=== PATIENT | male | born 1945 | race Caucasian/White ===

== ENCOUNTER → 2025-09-02 | Outpatient (CLI) | payer MEDICARE, BC, SELFPAY ==
[2025-09-02 14:47] LABS: Basophils # (Auto) 0.0 Thou/mm3 (0.0-0.2); Basophils % (Auto) 0 % (0-2.5); Eosinophils # (Auto) 0.2 Thou/mm3 (0.0-0.5); Eosinophils % (Auto) 3 % (0-10); Hematocrit 45.2 % (41.0-53.0); Hemoglobin 14.8 g/dL (13.5-16.0); Immature Granulocytes Auto 0.02 Thou/mm3 (0.00-0.00); Lymphocytes # (Auto) 1.3 Thou/mm3 (1.0-4.8); Lymphocytes % (Auto) 18 % (10-50); Mean Corpuscular HGB Conc 32.7 g/dl (31.0-37.0); Mean Corpuscular Hemoglobin 34.7 pg (25.0-35.0); Mean Corpuscular Volume 106 fL (80-100); Monocytes # (Auto) 0.5 Thou/mm3 (0.0-0.8); Monocytes % (Auto) 6 % (0-12); Neutrophils # (Auto) 5.2 Thou/mm3 (1.8-7.7); Neutrophils % (Auto) 72 % (37-80); Nucleated Red Blood Cell # 0.00 Thou/mm3 (0.00-0.00); Nucleated Red Blood Cell % 0 /100 WBC (0); Platelet Count 161 Thou/mm3 (140-440); RDW Standard Deviation 54.4 fL (35.1-43.9); Red Blood Count 4.26 Miln/mm3 (4.50-5.90); White Blood Count 7.2 Thou/mm3 (3.8-10.6)
[2025-09-02 14:59] LABS: B-Type Natriuretic Peptide 45 pg/mL (0-100)
[2025-09-02 15:02] LABS: Alanine Aminotransferase 12 U/L (10-49); Albumin, Serum 4.6 gm/dL (3.4-4.8); Albumin/Globulin Ratio 1.8 (1.2-2.2); Alkaline Phosphatase 94 U/L (46-116); Anion Gap 11 (7-16); Aspartate Amino Transferase 13 U/L (0-34); BUN/Creatinine Ratio 17 Ratio (12-20); Bilirubin,Total 1.2 mg/dL (0.3-1.2); Blood Urea Nitrogen 42 mg/dL (9-23); Calcium 9.3 mg/dL (8.3-10.6); Calcium (Corrected) 9.3 mg/dL (8.5-10.1); Carbon Dioxide 25.1 mMol/L (20.0-31.0); Cardiac Risk Estimate 2.3 RATIO (4.0-6.7); Chloride 106 mMol/L (98-107); Cholesterol 112 mg/dL (132-200); Creatinine (Component) 2.5 mg/dL (0.6-1.3); Globulin 2.6 gm/dL (2.3-3.5); Glucose 102 mg/dL (74-106); HDL Cholesterol 49 mg/dL (40-60); LDL Cholesterol,Calculated 34 mg/dL (0-130); Osmolality,Calculated 293 (275-295); Potassium 5.2 mMol/L (3.4-5.1); Sodium 142 mMol/L (136-145); Thyroid Stimulating Hormone 1.94 uIU/mL (0.55-4.78); Total Protein 7.2 gm/dL (5.7-8.2); Triglycerides 146 mg/dL (30-150); eGFR 25 See Note
== END | disposition home or self-care (01) ==
LOC: COPL 13:35
PROVIDERS: PCP Internal Medicine
DX: E78.5 Hyperlipidemia, unspecified (principal); I50.9 Heart failure, unspecified; Z79.899 Other long term (current) drug therapy
CPT/HCPCS: 36415; 80053; 80061; 83880; 84443; 85025

== ENCOUNTER → 2025-10-16 | Outpatient (CLI) | payer MEDICARE, BC, SELFPAY ==
--- NOTE | 2025-10-16 15:02 | XR_ITS ---
Examination: Retroperitoneal ultrasound, complete Technique: Multiple high resolution grayscale images of the retroperitoneum obtained, including kidneys and bladder. Exam date and time: October 16, 2025, 1513 hours INDICATIONS: Acute renal failure on laboratory examination September 02, 2025. FINDINGS: Right kidney 10.0 cm renal cortex 2.6 cm Left kidney 10.0 cm renal cortex 2.6 cm Moderate renal scar formation 6 mm lower pole left renal calculus, no hydronephrosis No bladder mass, bladder prevoid volume 193 cc Prostate 4.0 x 4.1 x 4.4 cm volume 37 cc no prostate nodules IMPRESSION: Moderate renal scar formation 6 mm lower pole left renal calculus
[2025-10-16 16:45] LABS: Albumin, Serum 5.1 gm/dL (3.4-4.8); Anion Gap 11 (7-16); BUN/Creatinine Ratio 23 Ratio (12-20); Blood Urea Nitrogen 59 mg/dL (9-23); Calcium 9.3 mg/dL (8.3-10.6); Calcium (Corrected) 9.3 mg/dL (8.5-10.1); Carbon Dioxide 27.1 mMol/L (20.0-31.0); Chloride 104 mMol/L (98-107); Creatinine (Component) 2.6 mg/dL (0.6-1.3); Glucose 90 mg/dL (74-106); Osmolality,Calculated 299 (275-295); Phosphorous 5.3 mg/dL (2.4-5.1); Potassium 4.9 mMol/L (3.4-5.1); Sodium 142 mMol/L (136-145); eGFR 24 See Note
== END | disposition home or self-care (01) ==
LOC: CDIM 14:27
PROVIDERS: PCP Internal Medicine; Referring Provider Internal Medicine; Visit Provider Internal Medicine
DX: N20.0 Calculus of kidney (principal); N28.89 Other specified disorders of kidney and ureter; N17.9 Acute kidney failure, unspecified; I10 Essential (primary) hypertension
CPT/HCPCS: 36415; 76770; 80069; 81001

== ENCOUNTER 2025-10-22 08:48 | Emergency (ER) | payer MEDICARE, BC, SELFPAY ==
[2025-10-22] VITALS (7 sets, daily range): BP systolic 107–148; BP diastolic 60–86; PULSE 67–99; RESP 16–20; TEMP 36.4; O2SAT 95–100; BMI 28.2
--- NOTE | 2025-10-22 09:29 | PD.EDRME ---
Rapid Medical Screening Exam RME Arrival date/time: 10/22/25 08:48 80-year-old male with a history of hyperlipidemia, type 2 diabetes presents to the emergency room with a chief complaint of bright red blood in the stool x 1 day I have greeted and performed a focused initial assessment of this patient. A comprehensive ED assessment and evaluation of the patient, analysis of all test results, and completion of the medical decision making process will be conducted by additional ED providers. Chief Complaint: GI Bleed Time Seen by Provider: 10/22/25 08:59 Vital signs: Vital Signs Temperature 97.6 F 10/22/25 09:25 Pulse Rate 99 10/22/25 09:25 Respiratory Rate 20 10/22/25 09:25 Blood Pressure 122/76 10/22/25 09:25 Pulse Oximetry (%) 95 10/22/25 09:25 Oxygen Delivery Method Room Air 10/22/25 09:25 Vital signs reviewed by provider: Yes Exam: Bilateral lower abdomen tenderness with palpation Clear bilateral lung sounds. GCS of 15 Clinical Impression: Lower GI bleed/hemorrhoids/
[2025-10-22 10:06] LABS: INR 1.0 (0.9-1.3); Partial Thromboplastin Time 26.2 Seconds (22.0-36.0); Prothrombin Time 10.9 Seconds (9.0-12.2)
[2025-10-22 11:20] LABS: Basophils # (Auto) 0.0 Thou/mm3 (0.0-0.2); Basophils % (Auto) 0 % (0-2.5); Eosinophils # (Auto) 0.1 Thou/mm3 (0.0-0.5); Eosinophils % (Auto) 1 % (0-10); Hematocrit 43.7 % (41.0-53.0); Hemoglobin 14.3 g/dL (13.5-16.0); Immature Granulocytes Auto 0.03 Thou/mm3 (0.00-0.00); Lymphocytes # (Auto) 1.0 Thou/mm3 (1.0-4.8); Lymphocytes % (Auto) 13 % (10-50); Mean Corpuscular HGB Conc 32.7 g/dl (31.0-37.0); Mean Corpuscular Hemoglobin 34.7 pg (25.0-35.0); Mean Corpuscular Volume 106 fL (80-100); Monocytes # (Auto) 0.4 Thou/mm3 (0.0-0.8); Monocytes % (Auto) 5 % (0-12); Neutrophils # (Auto) 6.3 Thou/mm3 (1.8-7.7); Neutrophils % (Auto) 81 % (37-80); Nucleated Red Blood Cell # 0.00 Thou/mm3 (0.00-0.00); Nucleated Red Blood Cell % 0 /100 WBC (0); Platelet Count 152 Thou/mm3 (140-440); RDW Standard Deviation 51.7 fL (35.1-43.9); Red Blood Count 4.12 Miln/mm3 (4.50-5.90); White Blood Count 7.7 Thou/mm3 (3.8-10.6)
[2025-10-22 12:00] LABS: Alanine Aminotransferase 23 U/L (10-49); Albumin, Serum 4.6 gm/dL (3.4-4.8); Albumin/Globulin Ratio 2.2 (1.2-2.2); Anion Gap 10 (7-16); Aspartate Amino Transferase 19 U/L (0-34); BUN/Creatinine Ratio 26 Ratio (12-20); Bilirubin,Total 0.7 mg/dL (0.3-1.2); Blood Urea Nitrogen 64 mg/dL (9-23); Calcium 9.5 mg/dL (8.3-10.6); Calcium (Corrected) 9.5 mg/dL (8.5-10.1); Carbon Dioxide 25.8 mMol/L (20.0-31.0); Chloride 104 mMol/L (98-107); Creatinine (Component) 2.5 mg/dL (0.6-1.3); Estimated Creatinine Clearance 28.8 mL/min (>60); Globulin 2.1 gm/dL (2.3-3.5); Glucose 126 mg/dL (74-106); Osmolality,Calculated 299 (275-295); Potassium 5.9 mMol/L (3.4-5.1); Sodium 140 mMol/L (136-145); Total Protein 6.7 gm/dL (5.7-8.2); eGFR 25 See Note
[2025-10-22 12:35] LABS: Alkaline Phosphatase 82 U/L (46-116)
--- NOTE | 2025-10-22 13:36 | PD.EDGIBLD ---
ED GI Bleed RME/HPI General Chief complaint: GI Bleed Stated complaint: RECTAL BLEEDING Time Seen by Provider: 10/22/25 08:59 Arrival date/time: 10/22/25 08:48 Limitations: no limitations RME / HPI RME / HPI Narrative: 10/22/25 08:48 80-year-old male with a history of hyperlipidemia, type 2 diabetes presents to the emergency room with a chief complaint of bright red blood in the stool x 1 day I have greeted and performed a focused initial assessment of this patient. A comprehensive ED assessment and evaluation of the patient, analysis of all test results, and completion of the medical decision making process will be conducted by additional ED providers. DR. LEVIN MAIN ED EVALUATION 80 year old male with history of hypertension diabetes, hyperlipidemia, BPH, bilateral lung cancer s/p bilateral lobectomy, presents to the ED with concerns of two episodes of bright red blood in stool today. No other associated symptoms reported. Denies abdominal pain, diarrhea, constipation. Denies any fevers, chest pain, or shortness of breath. No trauma. Denies use of blood thinners. Patient states he has had colonoscopies in the past showing precancerous polyps though did not become cancerous. States he has not had a colonoscopy performed in a while. Exam: Bilateral lower abdomen tenderness with palpation Clear bilateral lung sounds. GCS of 15 Impression: Lower GI bleed/hemorrhoids/ Related Data Home Medications ?Medication ?Instructions ?Recorded ?Confirmed atorvastatin 40 mg tablet (Lipitor) 40 mg PO HS #0 tabs 02/18/16 01/05/23 metformin 500 mg tablet 1,000 mg PO BID ##360 06/15/16 01/05/23 glipizide 2.5 mg tablet, extended 5 mg PO QDAY 01/05/23 01/05/23 release 24 hr triamterene 37.5 1 tab PO QDAY 01/05/23 01/05/23 mg-hydrochlorothiazide 25 mg tablet Previous Rx's ?Medication ?Instructions ?Recorded irbesartan 300 mg tablet 300 mg PO QDAY #30 tabs 01/15/23 metoprolol succinate 25 mg 25 mg PO QDAY #30 tabs 01/15/23 tablet,extended release 24 hr spironolactone 25 mg tablet 25 mg PO DAILY 30 days #30 tabs 01/15/23 acetaminophen 325 mg tablet 650 mg (2 x 325 mg) PO Q6H PRN 01/16/23 Fever >101.5 #1 tab budesonide-formoterol HFA 80 2 inh inhalation BID #10.2 grams 01/16/23 mcg-4.5 mcg/actuation aerosol inhaler (Symbicort) ipratropium 0.5 mg-albuterol 3 mg 3 ml INH Q6HRRT #1 mL 01/16/23 (2.5 mg base)/3 mL nebulization soln polyethylene glycol 3350 17 gram 17 g PO QDAY #1 ea 01/16/23 oral powder packet (HealthyLax) sodium zirconium cyclosilicate 10 10 g PO QDAY #5 ea 10/22/25 gram oral powder packet (Lokelma) Allergies Allergy/AdvReac Type Severity Reaction Status Date / Time lettuce AdvReac Intermediate Diarrhea Verified 10/22/25 22:49 Review of Systems Review of Systems Systems Reviewed: All systems reviewed, normal except as documented Past Medical History Past Medical History CARDIAC: Positive Hypercholesterolemia, Congestive Heart Failure, Edema and Hypertension GENITOURINARY: Positive Genitourinary Disorders and Kidney Stones MUSCULOSKELETAL: Positive Musculoskeletal Disorders and Degenerative Disk Disease ENT: Positive Cataracts ENDOCRINE: Positive Endocrine Disorders and Diabetes Mellitus Type 2 OTHER HISTORY: Positive Hospitalization, Falls, Chicken Pox, Measles, Mumps, Rubella ([place] Measles) and Cancer Family History FAMILY HISTORY: Positive Family Cardiac Disorders, Family Cancer and Family Surgery Surgical History SURGICAL: Positive of Back Surgery Social History SMOKING STATUS: Former smoker ED Exam General Limitations: Present no limitations General appearance: Present alert and in no apparent distress Head Head exam: Present atraumatic Eye Eye exam: Present normal appearance, PERRL and EOMI ENT ENT exam: Present normal exam, normal oropharynx and mucous membranes moist Neck Neck exam: Present normal inspection, full ROM and trachea midline Chest Chest inspection: Present normal inspection and symmetric chest wall rise Respiratory Respiratory exam: Present normal lung sounds bilaterally Cardiovascular Cardiovascular exam: Present regular rate, normal rhythm and normal heart sounds Abdominal Exam Abdominal exam: Present soft and normal bowel sounds Extremities Exam Extremities exam: Present normal inspection and full ROM Back Exam Back exam: Present normal inspection and full ROM Neurological Exam Neurological exam: Present alert, oriented X3 and CN II-XII intact Psychiatric Psychiatric exam: Present normal affect and normal mood Skin Skin exam: Present warm, dry, intact and normal color Course Quality Measures none Orders Category Date Time Status CBC Stat Lab 10/22/25 09:40 Completed CMP [Comprehensive Metabolic Panel] Stat Lab 10/22/25 09:40 Completed PT [Prothrombin Time with INR] Stat Lab 10/22/25 09:40 Completed PTT [Partial Thromboplastin Time] Stat Lab 10/22/25 09:40 Completed Type and Screen Stat Lab 10/22/25 11:00 Completed ALBUTEROL RT 0.5ml [Proventil Rt 0.5ml] Med 10/22/25 13:39 Discontinued 2.5 mg INH X1 ONE Calcium Gluconate 10% Inj Med 10/22/25 13:39 Discontinued 1 gm IV X1 ONE Dextrose 10%-Water 1000 ml [D10w 1000 ml] 1,000 ml Med 10/22/25 13:45 Discontinued IV 100 mls/hr Dextrose 50% Syr [D50w Syringe Abboject] Med 10/22/25 13:39 Discontinued 50 ml IVP X1 ONE Furosemide [Lasix Inj] Med 10/22/25 13:41 Discontinued 20 mg IVP X1 ONE Insulin Regular Med 10/22/25 13:39 Discontinued 5 unit IV X1 ONE Sodium Chloride Rt Lucia 0.9% [NS Rt Lucia 0.9%] Med 10/22/25 13:39 Discontinued 3 ml INH PRN PRN Vital Signs Vital signs: Vital Signs Temperature 97.6 F 10/22/25 09:25 Pulse Rate 99 10/22/25 09:25 Respiratory Rate 20 10/22/25 09:25 Blood Pressure 122/76 10/22/25 09:25 Pulse Oximetry (%) 95 10/22/25 09:25 Oxygen Delivery Method Room Air 10/22/25 09:25 Pulse ox is 95% on room air which is adequate. GI Bleed MDM Narrative MDM Narrative:: Patient is an 78-year-old male into the [facility] from with concerns for bright red blood per rectum. Vital signs and exam as listed. Concern for hemorrhoid, fissure, patient without any abdominal pain, he is hemodynamically stable, no shortness of breath less likely brisk hemodynamically unstable bleed. Ordered labs. Labs with evidence of hemoglobin 14.3, no leukocytosis, no left shift patient potassium is 5.9 we will treat in the emergency department. Patient with persistent chronic kidney disease, patient's creatinine is at his baseline, 2.5. GFR at this baseline that has been the last couple months 25. No transaminitis, patient blood type is a positive. Offered admission however patient declines. Discussed with [employer] neurology hospitalist Dr. Horta, agrees with treatment thus far. recommends that we prescribe lokelma. lower GI bleed is not a contraindication for lokelma. Advsied on low potass[place]m diet and follow up with his neurology hospitalist in the next 1-2 days. Given patient does not want to be admitted, recommends dc with lokelma. I advised follow up with gastroenterology for repeat colonoscopy given hx of GI bleed, and neprhology this week. close return precautiosn provided Patient data External records reviewed:: [facility] previous records Clinical information provided by:: patient Social determinants that could affect healthcare access:: none Patient has the following chronic illnesses:: hypertension diabetes, hyperlipidemia, BPH, bilateral lung cancer s/p bilateral lobectomy colonoscopies in the past showing precancerous polyps though did not become cancerous. How is presenting disease/condition affected by chronic disease/condition?: exacerbated by Evaluation data The following diagnostics were reviewed and interpreted by me:: lab results Lab and/or radiology exams considered but not ordered:: None Interpretation Summary: See MDM Medications / Prescriptions Medications or Prescriptions considered but not ordered:: None Medication administrations:: Medication Administration History Discontinued Medications Albuterol (Albuterol Rt 2.5 Mg/0.5 Ml Nebu) 2.5 mg INH X1 ONE Stop: 10/22/25 13:40 Last Admin: 10/22/25 14:00 Dose: 2.5 mg Documented By: JIM Calcium Gluconate (Calcium Gluconate 10% Inj 1 Gm/10 Ml Vial) 1 gm IV X1 ONE Stop: 10/22/25 13:40 Last Admin: 10/22/25 14:06 Dose: 1 gm Documented By: EFREN Dextrose (Dextrose 50%-Water Inj 50 Ml Syringe) 50 ml IVP X1 ONE Stop: 10/22/25 13:40 Last Admin: 10/22/25 14:07 Dose: 50 ml Documented By: EFREN Furosemide (Furosemide Inj 10 Mg/Ml Vial 2 Ml) 20 mg IVP X1 ONE Stop: 10/22/25 13:42 Last Admin: 10/22/25 14:07 Dose: 20 mg Documented By: EFREN Dextrose (D10w 1000 Ml) 1,000 mls @ 100 mls/hr IV .Q10H NANCY Stop: 10/22/25 23:44 Last Admin: 10/22/25 14:15 Dose: Not Given Documented By: EFREN Non-Admin Reason: Cancelled by Provider Insulin Human Regular (Insulin Hum Regular 1 Unit/0.01 Ml (Per Unit)) 5 unit IV X1 ONE Stop: 10/22/25 13:40 Last Admin: 10/22/25 14:05 Dose: 5 unit Documented By: EFREN Co-signed By: MARCY Sodium Chloride (Sodium Chloride Rt Lucia 0.9% 3 Ml Nebu) 3 ml INH PRN PRN PRN Reason: SOLN Stop: 11/21/25 13:38 Last Admin: 10/22/25 14:00 Dose: 3 ml Documented By: JIM See above Consultations Consultation(s) initiated? (list below): No Diagnosis GI bleed differential diagnosis: hemorrhoids, infectious diarrhea, Lower gastrointestinal hemorrhage, hematochezia and anal fissure Most likely diagnosis given after review of the tests above:: Acute hyperkalemia Bright red blood per rectum Admission Indicated Admission indicated?: not indicated Admission Request Was there a request for admission?: No Disposition Plan Disposition Plan: Discharge Discharge Attestation Discharge Attestation: The patient and all family members were given an opportunity to ask questions and understood the discharge instructions. Discharge instructions specifically effects, indications for sooner follow up or return to the emergency department, and the expected course of current diagnosis. Patient condition: Stable Discharge Plan Plan Patient Disposition: HOME (Self Care) Prescriptions/Referrals Prescriptions/Med Rec: Walter Lopuma 10 gram powder in packet 10 g PO QDAY Qty: 5 0RF No Action atorvastatin [Lipitor] 40 MG tablet 40 mg PO HS Qty: 0 metformin 500 mg Tablet 1,000 mg PO BID Qty: 360 glipizide 2.5 mg Tablet Extended Release 24hr 5 mg PO QDAY triamterene-hydrochlorothiazid 37.5-25 mg Tablet 1 tab PO QDAY spironolactone 25 mg Tablet 25 mg PO DAILY 30 Days Qty: 30 1RF metoprolol succinate 25 mg Tablet Extended Release 24 Hr 25 mg PO QDAY Qty: 30 0RF irbesartan 300 mg Tablet 300 mg PO QDAY Qty: 30 0RF acetaminophen 325 mg Tablet 650 mg PO Q6H PRN (Reason: Fever >101.5) Qty: 1 0RF ipratropium-albuterol 0.5 mg-3 mg(2.5 mg base)/3 mL Solution For Nebulization 3 ml INH Q6HRRT Qty: 1 0RF polyethylene glycol 3350 [HealthyLax] 17 gram Powder In Packet 17 g PO QDAY Qty: 1 0RF budesonide-formoterol [Symbicort] 80-4.5 mcg/actuation HFA aerosol inhaler 2 inh inhalation BID Qty: 10.2 0RF Referrals: Jennifer Silverio MD [Primary Care Provider] - In 1 week Problem List Clinical Impression: Acute hyperkalemia, BRBPR (bright red blood per rectum) Patient/Caregiver Discharge Instructions Education Materials: Bleeding Gastrointestinal, ED Hyperkalemia Additional Instructions: You came in today because you had a painless lower GI bleed. Your vital signs have remained stable, within normal limits, your hemoglobin was 14 which is also normal and you do not have abdominal pain, all of these findings are reassuring. It is important that you follow-up with your primary care doctor and request evaluation by prison teacher for a colonoscopy. It important that they further assess the possible etiologies of your bleed. If the bleeding gets worse, you feel lightheaded important that you come back to the emergency department or call 911. Your labs today did show that your potassium is 5.9 in the ED you have chronic kidney disease. Your creatinine and renal function is at its baseline however it is concerning that your potassium has gone up. We gave you medications for management of your potassium and we consulted the neurology hospitalist on-call today for Dr Collins which is Dr. Horta and they said it was safe to discharge her home after the treatments that we have provided here in the emergency department. However it is important that you eat a low potassium diet, avoid bananas, plantains, potatoes and any other foods that are high in potassium. We have also prescribed you a medication that will help manage your potassium. It important that you return to the emergency department or call 911 if you feel palpitations but is of breath lightheaded or any other symptom of concern. Print Language: Tuvaluan Stand Alone Forms: Mimi Award Info., Patient Portal Info Letter
[2025-10-22] MEDS: ALBUTEROL RT 2.5 MG/0.5 ML NEBU INH (14:00)
[2025-10-22] MEDS: SODIUM CHLORIDE RT SOL 0.9% 3 ML NEBU INH (14:00)
[2025-10-22] MEDS: INSULIN HUM REGULAR 1 UNIT/0.01 ML (PER UNIT) 5 UNIT IV (14:05)
[2025-10-22] MEDS: CALCIUM GLUCONATE 10% INJ 1 GM/10 ML VIAL IV (14:06)
[2025-10-22] MEDS: FUROSEMIDE INJ 10 MG/ML VIAL 2 ML 20 MG IVP (14:07)
[2025-10-22] MEDS: DEXTROSE 50%-WATER INJ 50 ML SYRINGE IVP (14:07)
== END 2025-10-22 14:43 | disposition home or self-care (01) ==
PROVIDERS: Nurse Practitioner Family; Emergency Provider Emergency Medicine; PCP Internal Medicine
DX: K62.5 Hemorrhage of anus and rectum (principal); E87.5 Hyperkalemia
CPT/HCPCS: 36415; 80053; 85025; 85610; 85730; 86850; 86900; 86901; 94640; 96374; 99284; J0612; J1815; J1938

== ENCOUNTER 2025-10-22 22:48 | Emergency (ER) | payer MEDICARE, BC, SELFPAY ==
[2025-10-22 22:49] VITALS: BMI 27.6
[2025-10-22 23:10] VITALS: BP 122/67; PULSE 96; RESP 20; TEMP 37; O2SAT 95
--- NOTE | 2025-10-22 23:16 | PD.EDRME ---
Rapid Medical Screening Exam E Arrival date/time: 10/22/25 22:48 80M with history of DM presents to ED with worsening rectal bleeding including large volumes of red stool. Patient was here earlier today for this and is back because he's scared. Chief Complaint: GI Bleed Vital signs: Vital Signs Temperature 98.6 F 10/22/25 23:10 Pulse Rate 96 10/22/25 23:10 Respiratory Rate 20 10/22/25 23:10 Blood Pressure 122/67 10/22/25 23:10 Pulse Oximetry (%) 95 10/22/25 23:10 Oxygen Delivery Method Room Air 10/22/25 23:10 Exam: Mildly diaphoretic Clinical Impression: GIB vs hemorrhoids vs gastroenteritis vs colitis vs mesenteric ischemia
[2025-10-22 23:33] LABS: Basophils # (Auto) 0.0 Thou/mm3 (0.0-0.2); Basophils % (Auto) 0 % (0-2.5); Eosinophils # (Auto) 0.1 Thou/mm3 (0.0-0.5); Eosinophils % (Auto) 1 % (0-10); Hematocrit 40.2 % (41.0-53.0); Hemoglobin 13.1 g/dL (13.5-16.0); Immature Granulocytes Auto 0.02 Thou/mm3 (0.00-0.00); Lymphocytes # (Auto) 1.3 Thou/mm3 (1.0-4.8); Lymphocytes % (Auto) 14 % (10-50); Mean Corpuscular HGB Conc 32.6 g/dl (31.0-37.0); Mean Corpuscular Hemoglobin 34.6 pg (25.0-35.0); Mean Corpuscular Volume 106 fL (80-100); Monocytes # (Auto) 0.7 Thou/mm3 (0.0-0.8); Monocytes % (Auto) 7 % (0-12); Neutrophils # (Auto) 7.0 Thou/mm3 (1.8-7.7); Neutrophils % (Auto) 78 % (37-80); Nucleated Red Blood Cell # 0.00 Thou/mm3 (0.00-0.00); Nucleated Red Blood Cell % 0 /100 WBC (0); Platelet Count 130 Thou/mm3 (140-440); RDW Standard Deviation 51.4 fL (35.1-43.9); Red Blood Count 3.79 Miln/mm3 (4.50-5.90); White Blood Count 9.0 Thou/mm3 (3.8-10.6)
[2025-10-22 23:38] LABS: Lactate (Lactic Acid) 1.1 mMol/L (0.4-2.0)
[2025-10-22 23:53] LABS: Alanine Aminotransferase 17 U/L (10-49); Albumin, Serum 4.6 gm/dL (3.4-4.8); Albumin/Globulin Ratio 2.0 (1.2-2.2); Alkaline Phosphatase 74 U/L (46-116); Anion Gap 12 (7-16); Aspartate Amino Transferase 16 U/L (0-34); BUN/Creatinine Ratio 25 Ratio (12-20); Bilirubin,Total 0.6 mg/dL (0.3-1.2); Blood Urea Nitrogen 65 mg/dL (9-23); Calcium 8.9 mg/dL (8.3-10.6); Calcium (Corrected) 8.9 mg/dL (8.5-10.1); Carbon Dioxide 23.2 mMol/L (20.0-31.0); Chloride 106 mMol/L (98-107); Creatinine (Component) 2.6 mg/dL (0.6-1.3); Estimated Creatinine Clearance 25.5 mL/min (>60); Globulin 2.3 gm/dL (2.3-3.5); Glucose 77 mg/dL (74-106); Osmolality,Calculated 298 (275-295); Potassium 5.2 mMol/L (3.4-5.1); Sodium 141 mMol/L (136-145); Total Protein 6.9 gm/dL (5.7-8.2); eGFR 24 See Note
[2025-10-23 03:40] VITALS: BP 116/52; PULSE 74; RESP 18; TEMP 36.6; O2SAT 95
--- NOTE | 2025-10-23 04:24 | PD.EDGIBLD ---
ED GI Bleed RME/HPI General Chief complaint: GI Bleed Stated complaint: RECTAL BLEEDING INCREASED Arrival date/time: 10/22/25 22:48 RME / HPI RME / HPI Narrative: 10/22/25 22:48 80M with history of DM presents to ED with worsening rectal bleeding including large volumes of red stool. Patient was here earlier today for this and is back because he's scared. Dr. Wilson?s Main ED Evaluation: 80yo male presents to the ED for a chief complaint of rectal bleeding. Patient was seen here yesterday for the same complaint and returned tonight due to seeing large amounts of bright red blood in the toilet. Patient denies any abdominal pain, N/V, fever, chills, or any other associated symptoms. Patient denies any history of similar symptoms. He does not have a GI specialist. Patient's last colonoscopy was over 5 years ago. Related Data Home Medications ?Medication ?Instructions ?Recorded ?Confirmed atorvastatin 40 mg tablet (Lipitor) 40 mg PO HS #0 tabs 02/18/16 01/05/23 metformin 500 mg tablet 1,000 mg PO BID ##360 06/15/16 01/05/23 glipizide 2.5 mg tablet, extended 5 mg PO QDAY 01/05/23 01/05/23 release 24 hr triamterene 37.5 1 tab PO QDAY 01/05/23 01/05/23 mg-hydrochlorothiazide 25 mg tablet Previous Rx's ?Medication ?Instructions ?Recorded irbesartan 300 mg tablet 300 mg PO QDAY #30 tabs 01/15/23 metoprolol succinate 25 mg 25 mg PO QDAY #30 tabs 01/15/23 tablet,extended release 24 hr spironolactone 25 mg tablet 25 mg PO DAILY 30 days #30 tabs 01/15/23 acetaminophen 325 mg tablet 650 mg (2 x 325 mg) PO Q6H PRN 01/16/23 Fever >101.5 #1 tab budesonide-formoterol HFA 80 2 inh inhalation BID #10.2 grams 01/16/23 mcg-4.5 mcg/actuation aerosol inhaler (Symbicort) ipratropium 0.5 mg-albuterol 3 mg 3 ml INH Q6HRRT #1 mL 01/16/23 (2.5 mg base)/3 mL nebulization soln polyethylene glycol 3350 17 gram 17 g PO QDAY #1 ea 01/16/23 oral powder packet (HealthyLax) sodium zirconium cyclosilicate 10 10 g PO QDAY #5 ea 10/22/25 gram oral powder packet (Lokelma) Allergies Allergy/AdvReac Type Severity Reaction Status Date / Time lettuce AdvReac Intermediate Diarrhea Verified 10/22/25 22:49 Review of Systems Review of Systems Systems Reviewed: All systems reviewed, normal except as documented Past Medical History Past Medical History NEUROLOGIC: Negative Neurological Disorders or Seizures CARDIAC: Positive Hypercholesterolemia, Congestive Heart Failure, Edema and Hypertension; Negative Cardiac Disorders or Cellulitis RESPIRATORY: Negative Chronic Obstructive Pulmonary Disease (COPD), Asthma, Tuberculosis or Sleep Apnea GASTROINTESTINAL: Negative Gastrointestinal Disorders or Hepatitis GENITOURINARY: Positive Genitourinary Disorders and Kidney Stones; Negative Renal Disease MUSCULOSKELETAL: Positive Musculoskeletal Disorders and Degenerative Disk Disease ENT: Positive Cataracts ENDOCRINE: Positive Endocrine Disorders and Diabetes Mellitus Type 2; Negative Diabetes Mellitus Type 1 HEMATOLOGIC: Negative Blood Disorders or Sickle Cell Disease OTHER HISTORY: Positive Hospitalization, Falls, Chicken Pox, Measles, Mumps, Rubella ([place] Measles), Cancer and Lung Cancer (lobectomys); Negative Autoimmune Disease, Shingles, Blood Transfusions, Anesthesia Reactions, Chemotherapy, Radiation Therapy or MRSA Family History FAMILY HISTORY: Positive Family Cancer and Family Surgery; Negative Family Psychiatric Problems, Family Respiratory Disorders, Family Cardiac Disorders, Family Gastrointestinal Problems or Family Anesthesia Reaction Surgical History SURGICAL: Negative Cardiac Surgery or Pacemaker Social History SMOKING STATUS: Never smoker ED Exam Narrative Physical exam: Generally patient is alert and in no obvious distress, heart regular rate and rhythm, lungs clear to auscultation equal bilaterally, abdomen soft bowel sounds present nondistended nontender, rectal exam did not show red or maroon-colored stool. It showed dark-colored stool which was guaiac positive. There is no evidence of thrombocytopenia. His hemoglobin yesterday was 14 and today it is 13. I did discuss his case with GI specialist Dr. Hooper who will arrange for the patient to be followed up in his office. He took down the patient's name as well as birthdate and contact phone number so his office can contact the patient for close follow-up. Patient is agreeable for discharge. He has not been vomiting blood. He is not tachycardic or hypotensive. Course Quality Measures none Orders Category Date Time Status CBC Stat Lab 10/22/25 23:25 Completed CMP [Comprehensive Metabolic Panel] Stat Lab 10/22/25 23:25 Completed Lactate (Lactic Acid) Stat Lab 10/22/25 23:25 Completed Vital Signs Vital signs: Vital Signs Temperature 98.6 F 10/22/25 23:10 Pulse Rate 96 10/22/25 23:10 Respiratory Rate 20 10/22/25 23:10 Blood Pressure 122/67 10/22/25 23:10 Pulse Oximetry (%) 95 10/22/25 23:10 Oxygen Delivery Method Room Air 10/22/25 23:10 GI Bleed MDM Narrative MDM Narrative:: Scribe Attestation: 10/23/25 - Haley Allan, isabel scribing for and in the presence of Dr. Wilson. Patient's hemoglobin yesterday was 14 and today it is 13. There is no evidence of thrombocytopenia. Abdominal exam is completely benign. Rectal exam showed brown-colored stool no gross blood and guaiac positive. I discussed this case with GI specialist Dr. Hooper who has agreed to follow-up the patient in his office. Patient is agreeable for discharge. He is not tachycardic. He is not hypotensive. Patient's potassium was lower at 5.2 compared to what it was at 5.9 yesterday here in the emergency room. Patient data External records reviewed:: [facility] previous records (Per chart review, p) Clinical information provided by:: patient Social determinants that could affect healthcare access:: none Patient has the following chronic illnesses:: DM, HTN, HLD, BPH, bilateral lung cancer s/p bilateral lobectomy How is presenting disease/condition affected by chronic disease/condition?: uneffected by Evaluation data The following diagnostics were reviewed and interpreted by me:: lab results Lab and/or radiology exams considered but not ordered:: none Interpretation Summary: See MDM Medications / Prescriptions Medications or Prescriptions considered but not ordered:: none Medication administrations:: none Consultations Consultation(s) initiated? (list below): Yes Diagnosis GI bleed differential diagnosis: other (See MDM) Most likely diagnosis given after review of the tests above:: see clinical impression below Admission Indicated Admission indicated?: not indicated Admission Request Was there a request for admission?: No Disposition Plan Disposition Plan: Discharge Discharge Attestation Discharge Attestation: The patient and all family members were given an opportunity to ask questions and understood the discharge instructions. Discharge instructions specifically effects, indications for sooner follow up or return to the emergency department, and the expected course of current diagnosis. Patient condition: Stable Discharge Plan Plan Patient Disposition: HOME (Self Care) Prescriptions/Referrals Prescriptions/Med Rec: No Action atorvastatin [Lipitor] 40 MG tablet 40 mg PO HS Qty: 0 metformin 500 mg Tablet 1,000 mg PO BID Qty: 360 glipizide 2.5 mg Tablet Extended Release 24hr 5 mg PO QDAY triamterene-hydrochlorothiazid 37.5-25 mg Tablet 1 tab PO QDAY spironolactone 25 mg Tablet 25 mg PO DAILY 30 Days Qty: 30 1RF metoprolol succinate 25 mg Tablet Extended Release 24 Hr 25 mg PO QDAY Qty: 30 0RF irbesartan 300 mg Tablet 300 mg PO QDAY Qty: 30 0RF acetaminophen 325 mg Tablet 650 mg PO Q6H PRN (Reason: Fever >101.5) Qty: 1 0RF ipratropium-albuterol 0.5 mg-3 mg(2.5 mg base)/3 mL Solution For Nebulization 3 ml INH Q6HRRT Qty: 1 0RF polyethylene glycol 3350 [HealthyLax] 17 gram Powder In Packet 17 g PO QDAY Qty: 1 0RF budesonide-formoterol [Symbicort] 80-4.5 mcg/actuation HFA aerosol inhaler 2 inh inhalation BID Qty: 10.2 0RF Lokelma 10 gram powder in packet 10 g PO QDAY Qty: 5 0RF Referrals: No Primary/Family,Physician [Primary Care Provider] - In 1 week Problem List Clinical Impression: Lower GI bleed Patient/Caregiver Discharge Instructions Education Materials: Bleeding Gastrointestinal Additional Instructions: GI specialist, Dr. Hooper, will have his office contact you early next week for your appointment time. Continue current medications. Return to ER as needed or if condition worsens. Print Language: Turkish Stand Alone Forms: Mimi Award Info., Patient Portal Info Letter
[2025-10-23 05:01] VITALS: RESP 16
== END 2025-10-23 05:02 | disposition home or self-care (01) ==
PROVIDERS: Physician Assistant; Emergency Provider Emergency Medicine
DX: K92.2 Gastrointestinal hemorrhage, unspecified (principal)
CPT/HCPCS: 36415; 80053; 83605; 85025; 99282

== ENCOUNTER 2025-11-16 13:03 | Inpatient (IN) | payer MEDICARE, BC, SELFPAY ==
[2025-11-16] VITALS (10 sets, daily range): BP systolic 119–139; BP diastolic 67–75; PULSE 76–102; RESP 18–83; TEMP 36.8–36.9; O2SAT 80–100; BMI 28.2
--- NOTE | 2025-11-16 14:17 | XR_ITS ---
Examination: CT abdomen and pelvis without contrast. Coronal 3-D reconstructions. Sagittal 2-D reconstructions. Date and time of exam: November 16, 2025, 1449 hours, comparison 08/12/2020 INDICATIONS: Anuria beginning 2 days ago CTDI: vol (mGy): 11.3 DLP: (mGycm): 679 Technique: Axial images of the abdomen have been obtained, 3 mm slice thickness Intravenous contrast material has not been administered. Low dose protocols were performed. One or more of the following dose reduction techniques were used; automated exposure control, adjustment of the mA and/or KV according to patient size, use of iterative reconstruction technique. Findings: No visualized liver or splenic lesion Cholelithiasis Pancreatic calcifications Nodular thickening left adrenal gland Renal arterial calcifications, no hydronephrosis or ureteral calculi Mild renal scar formation Perinephric stranding No hydronephrosis Aortic calcification no aneurysmal dilatation Normal appendix No bowel obstruction Normal seminal vesicles Transverse prostate dimension 4.5 cm Intact urinary bladder Diffuse moderate to advanced lumbar degenerative disc disease Fat-containing inguinal hernias IMPRESSION: Cholelithiasis Renal arterial calcifications, mild renal scar formation, mild perinephric stranding No hydronephrosis or ureteral calculi Normal appendix No bowel obstruction Mild to moderate prostatomegaly No bladder mass or bladder calculi
--- NOTE | 2025-11-16 14:17 | EKG_ITS ---
[facility] Test Date: 2025-11-16 Pat Name: BRIAN UNDERWOOD Department: Room: - Gender: Male Social Services Manager: : 1945 Requested By: Martin Beard Order Number: [id number] Reading MD: Martni Beard Measurements Intervals [place] Rate: 72 P: [place]: QRS: 85 QRSD: 109 T: 64 QT: 405 QTc: 446 Interpretive Statements ATRIAL FIBRILLATION LOW QRS VOLTAGE IN PRECORDIAL LEADS [QRS DEFLECTION < 1.0 mV IN CHEST LEADS] POSSIBLE ANTERIOR MYOCARDIAL INFARCTION , OF INDETERMINATE AGE [30 ms Q WAVE IN V3/V4, OR R < 0.2 mV IN V4] Compared to ECG 01/05/2023 12:20:50 Low QRS voltage now present Sinus rhythm no longer present First degree AV block no longer present Incomplete right bundle-branch block no longer present Right ventricular hypertrophy no longer present ST (T wave) deviation no longer present Myocardial infarct finding still present /store/S0/[id number]/ecg/[id number].pdf
--- NOTE | 2025-11-16 14:17 | XR_ITS ---
EXAMINATION: AP chest single view TECHNIQUE: Portable semiupright AP chest single view Date and time: November 16, 2025, 1456 hours, comparison 09/2023 INDICATIONS: Shortness of breath weakness today. FINDINGS: Again noted pleural parenchymal scarring throughout the lungs Mild to moderate prominence left ventricle Prominent central pulmonary arteries No interval pneumonia or pulmonary edema Prominent osteopenia IMPRESSION: Again noted COPD with extensive pleural parenchymal scarring throughout the lungs Pulmonary artery hypertension No interval pneumonia or pulmonary edema
--- NOTE | 2025-11-16 14:19 | EDNOTE_ITS ---
ED Weakness RME/HPI General Chief complaint: Weakness Stated complaint: WEAKNESS Time Seen by Provider: 11/16/25 13:39 Arrival date/time: 11/16/25 13:03 50-year-old male patient with significant history of diabetes mellitus hypertension, chronic kidney disease, came in for evaluation regarding shortness of breath with ambulation. Patient told me that he had to stop after few steps due to shortness of breath. Also complained of generalized body weakness. Also complained of inability to urinate, last urination was yesterday. Denies any chest pain. Denies any cough denies any fever denies any abdominal pain. Patient also complained of worsening bilateral lower leg swelling. Followed by Dr. Aleman seed cleaning manager. Related Data Home Medications ?Medication ?Instructions ?Recorded ?Confirmed atorvastatin 40 mg tablet (Lipitor) 40 mg PO HS #0 tab s 02/18/16 01/05/23 metformin 500 mg tablet 1,000 mg PO BID ##360 01/05/23 glipizide 2.5 mg tablet, extended 5 mg PO QDAY 3 01/05/23 release 24 hr triamterene 37.5 1 tab PO QDAY 01/05/2301/05 mg-hydrochlorothiazide 25 mg tablet Previous Rx's ?Medication ?Instructions ?Recorded irbesartan 300 mg tablet 300 mg PO QDAY #30 tabs 12/29 07/20 metoprolol succinate 25 mg 25 mg PO QDAY #30 tabs 12/29 07/20 tablet,extended release 24 hr spironolactone 25 mg tablet 25 mg PO DAILY 30 days #30 tabs 01/15/23 acetaminophen 325 mg tablet 650 mg (2 x 325 mg) PO Q6H PRN 01/16/23 Fever >101.5 #1 tab budesonide-formoterol HFA 80 2 inh inhalation BID #10. 2 grams 01/16/23 mcg-4.5 mcg/actuation aerosol inhaler (Symbicort) ipratropium 0.5 mg-albuterol 3 mg 3 ml INH Q6HRRT #1 m L 01/16/23 (2.5 mg base)/3 mL nebulization soln polyethylene glycol 3350 17 gram 17 g PO QDAY #1 ea oral powder packet (HealthyLax) sodium zirconium cyclosilicate 10 10 g PO QDAY #5 ea 1 12/22/24 gram oral powder packet (Lokelma) Allergies Allergy/AdvReac Type Severity Reaction Status Date / Time lettuce AdvReac Intermediate Diarrhea Verified 10/22/25 22:49 Review of Systems Review of Systems Narrative Review of Systems: Review of system reviewed and within normal limits except mentioned in HPI ED Exam Narrative Physical exam: VITAL SIGNS: Reviewed. GENERAL APPEARANCE: Alert and interactive, follows commands, no acute distress, HEAD AND FACE: Non-traumatic. ENT: PERRL, pink conjunctivitis, eyelid no trauma, Mucous membrane moist. NECK: Supple, nontender, no nuchal rigidity. CHEST: No tenderness, no crepitus, no paradoxical movement, no retractions. LUNGS: Clear, well ventilated, symmetric, no rales, no wheezing, no ronchi, no stridor, good breath sounds bilaterally. HEART: Regular rate, regular rhythm, no murmur, no gallops. ABDOMEN: Soft, positive bowel sounds, nondistended, no guarding, nontender, no rebound, no masses, RECTAL: Deferred. GENITAL: Deferred. NEUROLOGICAL: Gross motor function intact sensory function intact, Appropriate for age. MUSCULOSKELETAL: low back nontender, full range of motion. EXTREMITIES: Nontender, full range of motion. SKIN: Color pink, dry, no rash, no lacerations, no abrasions, no contusions. LYMPHATICS: Deferred. Course Quality Measures none Orders Category Date Time Status Patient Condition Routine Admission 11/16/25 21:[address] in Observation Status Routine Admission 11/16/25 21:31 Active Ambulate Patient ONCE Care 11/16/25 21:25 Active Bedside COVID-19 Antigen Test NOW Care 11/16/25 13:32 Active Bedside Influenza A&B Antigen Test NOW Care 11/16/25 13:32 Completed COVID-19 Screening Questionnaire NOW Care 11/16/25 21:37 Active Continuous Pulse Oximetry NOW Care 11/16/25 21:29 Completed EKG (ED ONLY) *Do not use* NOW Care 11/16/25 14:17 Completed Enema Administration NOW Care 11/16/25 21:29 Active In and Out Catheter X1 Care 11/16/25 18:46 Completed Miscellaneous Nursing Order NOW Care 11/16/25 21:29 Active Notify provider NEEDED Care 11/16/25 21:29 Active Obtain weight daily Care 11/16/25 21:32 Active Strict Intake and Output Routine Care 11/16/25 21:31 Ordered Diet Cardiac Diet 11/17/25 Breakfast Active CA echo doppler complete Routine Exams 11/16/25 21:[address] abdomen pelvis wo con Stat Exams 11/16/25 14:17 Completed EKG (ED Only) Stat Exams 11/16/25 14:17 Draft US venous duplex LE BI Routine Exams 11/16/25 21:39 Ordered XR chest 1V Stat Exams 11/16/25 14:17 Completed BNP [B-Type Natriuretic Peptide] Stat Lab 11/16/25 15:08 Completed CBC AM DRAW Lab 11/17/25 05:00 Ordered CBC AM DRAW Lab 11/18/25 05:00 Ordered CBC AM DRAW Lab 11/19/25 05:00 Ordered CBC AM DRAW Lab 11/20/25 05:00 Ordered CBC AM DRAW Lab 11/21/25 05:00 Ordered CBC AM DRAW Lab 11/22/25 05:00 Ordered CBC AM DRAW Lab 11/23/25 05:00 Ordered CBC [CBC] Stat Lab 11/16/25 15:08 Completed CMP [Comprehensive Metabolic Panel] Stat Lab 11/16/25 15:08 Completed Magnesium AM DRAW Lab 11/17/25 05:00 Ordered Magnesium AM DRAW Lab 11/18/25 05:00 Ordered Magnesium AM DRAW Lab 11/19/25 05:00 Ordered Magnesium AM DRAW Lab 11/20/25 05:00 Ordered Magnesium AM DRAW Lab 11/21/25 05:00 Ordered Magnesium AM DRAW Lab 11/22/25 05:00 Ordered Magnesium AM DRAW Lab 11/23/25 05:00 Ordered Occult Blood, Stool (LAB) Stat Lab 11/16/25 20:55 Completed PTT [Partial Thromboplastin Time] Stat Lab 11/16/25 15:08 Completed Phosphorous AM DRAW Lab 11/17/25 05:00 Ordered Phosphorous AM DRAW Lab 11/18/25 05:00 Ordered Phosphorous AM DRAW Lab 11/19/25 05:00 Ordered Phosphorous AM DRAW Lab 11/20/25 05:00 Ordered Phosphorous AM DRAW Lab 11/21/25 05:00 Ordered Phosphorous AM DRAW Lab 11/22/25 05:00 Ordered Phosphorous AM DRAW Lab 11/23/25 05:00 Ordered Renal Function Panel AM DRAW Lab 11/17/25 05:00 Ordered Renal Function Panel AM DRAW Lab 11/18/25 05:00 Ordered Renal Function Panel AM DRAW Lab 11/19/25 05:00 Ordered Renal Function Panel AM DRAW Lab 11/20/25 05:00 Ordered Renal Function Panel AM DRAW Lab 11/21/25 05:00 Ordered Renal Function Panel AM DRAW Lab 11/22/25 05:00 Ordered Renal Function Panel AM DRAW Lab 11/23/25 05:00 Ordered Troponin I Stat Lab 11/16/25 15:08 Completed UA, C/S IF [Urinalysis, C/S if Indicated] Stat Lab 11/16/25 18:59 Completed VBG [Venous Blood Gas] Stat Lab 11/16/25 20:29 Ordered ALBUTEROL RT 0.5ml [Proventil Rt 0.5ml] Med 11/16/25 20:39 Discontinued 2.5 mg INH X1 ONE Acetaminophen Tab [Tylenol Tab] Med 11/16/25 21:29 Ordered 650 mg PO Q6H PRN Albuterol/Ipratr Rt Lucia [Duoneb Rt Lucia] Med 11/16/25 21:29 Ordered 3 ml INH Q2HR PRN Furosemide Inj [Lasix Inj] Med 11/16/25 20:39 Discontinued 40 mg IVP X1 ONE Glycerin Supp Adult Med 11/16/25 21:29 Once 1 each SD X1 ONE Heparin Inj Med 11/16/25 21:45 Ordered 5,000 unit SC Q12H Ondansetron Inj [Zofran Inj] Med 11/16/25 21:29 Ordered 4 mg IVP Q6H PRN Senna/Docusate Sod [Senokot S] Med 11/16/25 21:29 Once 1 tab PO X1 ONE Sodium Chloride 0.9% 500 ml [Ns] 500 ml Med 11/16/25 14:18 Discontinued IV 999 mls/hr Sodium Chloride Rt Lucia 0.9% [NS Rt Lucia 0.9%] Med 11/16/25 20:39 Active 3 ml INH PRN PRN Code Status Routine Oth 11/16/25 21:29 Ordered Late Tray Request Routine Oth 11/16/25 21:40 Active Oxygen Delivery NOW RT 11/16/25 20:27 Active Vital Signs Vital signs: Vital Signs Temperature 98.5 F 11/16/25 13:09 Pulse Rate 81 11/16/25 13:09 Respiratory Rate 18 11/16/25 13:09 Blood Pressure 139/74 H 11/16/25 13:09 Pulse Oximetry (%) 99 11/16/25 13:09 Oxygen Delivery Method Room Air 11/16/25 13:09 Weakness MDM Narrative MDM Narrative:: 11/16/25 13:03 50-year-old male patient with significant history of diabetes mellitus hypertension, chronic kidney disease, came in for evaluation regarding shortness of breath with ambulation. Patient told me that he had to stop after few steps due to shortness of breath. Also complained of generalized body weakness. Also complained of inability to urinate, last urination was yesterday. Denies any chest pain. Denies any cough denies any fever denies any abdominal pain. Patient also complained of worsening bilateral lower leg swelling. Followed by Dr. Aleman seed cleaning manager. Patient was seen here last month for lower GI bleed, and was discharged home. Patient is scheduled for colonoscopy by Dr. Hooper next month. On multiple reevaluation patient was noted to be satting on the mid 80s, especially lying flat and on room air. When the patient staying up and on 2 L oxygen satting 95%. Patient verbalized significant improvement of shortness of breath with oxygen. Patient's laboratory workup is significant for a significant drop of hemoglobin to 10 from 13.13 weeks ago. Creatinine was noted to be 2.7, BUN 41 which is his baseline. BNP of 257. Patient received 500 cc of IV fluids. I did a rectal exam, tested negative for occult blood Patient lives alone, told me that he ordered for oxygen from [employer] which will be delivered this coming Tuesday. Spoke with hospitalist, examined patient in the emergency room and will admit the patient. Patient data External records reviewed:: None Clinical information provided by:: patient Social determinants that could affect healthcare access:: none Patient has the following chronic illnesses:: History of congestive heart failure, hypertension COPD How is presenting disease/condition affected by chronic disease/condition?: exacerbated by Evaluation data The following diagnostics were reviewed and interpreted by me:: lab results, radiology exam(s) and EKG tracing(s) Lab and/or radiology exams considered but not ordered:: None Interpretation Summary: EKG showed atrial fibrillation, ventricular rate of 72 bpm, no ST segment ovation depression noted. Medications / Prescriptions Medications or Prescriptions considered but not ordered:: None Medication administrations:: Medication Administration History Acetaminophen (Acetaminophen 325 Mg Tablet) 650 mg PO Q6H PRN PRN Reason: Fever >101.5 or pain 1-3 Stop: 12/16/25 21:28 Albuterol/Ipratropium (Albuterol/Ipratropium (Duoneb) Rt Lucia 3 Ml Nebu) 3 ml INH Q2HR PRN PRN Reason: SHORTNESS OF BREATH OR WHEEZE Stop: 12/16/25 21:28 Glycerin (Glycerin, Adult 1 Ea Supp) 1 each SD X1 ONE Stop: 11/16/25 21:30 Heparin Sodium (Porcine) (Heparin Sod Inj 5000 Unit/Ml Vial) 5,000 unit SC Q12H NANCY Stop: 11/30/25 21:44 Ondansetron HCl (Ondansetron Inj 2 Mg/Ml Inj 2 Ml) 4 mg IVP Q6H PRN; Protocol PRN Reason: NAUSEA OR VOMITING Stop: 12/16/25 21:28 Sennosides (Senna/Docusate Sod 1 Tab Tablet) 1 tab PO X1 ONE; Protocol Stop: 11/16/25 21:30 Sodium Chloride (Sodium Chloride Rt Lucia 0.9% 3 Ml Nebu) 3 ml INH PRN PRN PRN Reason: SOLN Stop: 12/16/25 20:38 Last Admin: 11/16/25 21:32 Dose: 3 ml Documented By: ROSA Discontinued Medications Albuterol (Albuterol Rt 2.5 Mg/0.5 Ml Nebu) 2.5 mg INH X1 ONE Stop: 11/16/25 20:40 Last Admin: 11/16/25 21:32 Dose: 2.5 mg Documented By: ROSA Furosemide (Furosemide Inj 10 Mg/Ml 4ml Vial) 40 mg IVP X1 ONE Stop: 11/16/25 20:40 Last Admin: 11/16/25 21:34 Dose: 40 mg Documented By: JONATHAN Sodium Chloride (Ns) 500 mls @ 999 mls/hr IV .Q31M ONE Stop: 11/16/25 14:48 Last Infusion: 11/16/25 15:26 Dose: Infused Documented By: Admin: 11/16/25 14:56 Dose: 999 mls/hr Documented By: JONATHAN See above Consultations Consultation(s) initiated? (list below): No Diagnosis Weakness Differential Diagnosis: dehydration and other (Shortness of breath, hypoxia, congestive heart failure exacerbation) Most likely diagnosis given after review of the tests above:: Hypoxia, shortness of breath Admission Indicated Admission indicated?: not indicated Admission Request Was there a request for admission?: Yes Admission Attestation Admission request attestation: Discussed case with [Dr Ennis] from Hospitalist service regarding admission. Discussed patients ED course, exam findings, labs, and radiology results. The Hospitalist [agrees] to accept the patient for admission. Disposition Plan Disposition Plan: Admit Discharge Plan Plan Patient Disposition: HOME (Self Care) Discharge Disposition comment: Stable Prescriptions/Referrals Prescriptions/Med Rec: No Action atorvastatin [Lipitor] 40 MG tablet 40 mg PO HS Qty: 0 metformin 500 mg Tablet 1,000 mg PO BID Qty: 360 glipizide 2.5 mg Tablet Extended Release 24hr 5 mg PO QDAY triamterene-hydrochlorothiazid 37.5-25 mg Tablet 1 tab PO QDAY spironolactone 25 mg Tablet 25 mg PO DAILY 30 Days Qty: 30 1RF metoprolol succinate 25 mg Tablet Extended Release 24 Hr 25 mg PO QDAY Qty: 30 0RF irbesartan 300 mg Tablet 300 mg PO QDAY Qty: 30 0RF acetaminophen 325 mg Tablet 650 mg PO Q6H PRN (Reason: Fever >101.5) Qty: 1 0RF ipratropium-albuterol 0.5 mg-3 mg(2.5 mg base)/3 mL Solution For Nebulization 3 ml INH Q6HRRT Qty: 1 0RF polyethylene glycol 3350 [HealthyLax] 17 gram Powder In Packet 17 g PO QDAY Qty: 1 0RF budesonide-formoterol [Symbicort] 80-4.5 mcg/actuation HFA aerosol inhaler 2 inh inhalation BID Qty: 10.2 0RF Lokelma 10 gram powder in packet 10 g PO QDAY Qty: 5 0RF Referrals: Jennifer Silverio MD [Primary Care Provider] - In 1 week Problem List Clinical Impression: Shortness of breath, Hypoxia Patient/Caregiver Discharge Instructions Print Language: Chinese Stand Alone Forms: Mimi Award Info., Patient Portal Info Letter
[2025-11-16] MEDS: SODIUM CHLORIDE 0.9% 500 ML 500 ML 999 ML IV (14:56)
[2025-11-16 15:22] LABS: Basophils # (Auto) 0.0 Thou/mm3 (0.0-0.2); Basophils % (Auto) 0 % (0-2.5); Eosinophils # (Auto) 0.0 Thou/mm3 (0.0-0.5); Eosinophils % (Auto) 1 % (0-10); Hematocrit 31.4 % (41.0-53.0); Hemoglobin 10.0 g/dL (13.5-16.0); Immature Granulocytes Auto 0.01 Thou/mm3 (0.00-0.00); Lymphocytes # (Auto) 0.8 Thou/mm3 (1.0-4.8); Lymphocytes % (Auto) 13 % (10-50); Mean Corpuscular HGB Conc 31.8 g/dl (31.0-37.0); Mean Corpuscular Hemoglobin 33.3 pg (25.0-35.0); Mean Corpuscular Volume 105 fL (80-100); Monocytes # (Auto) 0.3 Thou/mm3 (0.0-0.8); Monocytes % (Auto) 5 % (0-12); Neutrophils # (Auto) 5.0 Thou/mm3 (1.8-7.7); Neutrophils % (Auto) 82 % (37-80); Nucleated Red Blood Cell # 0.00 Thou/mm3 (0.00-0.00); Nucleated Red Blood Cell % 0 /100 WBC (0); Platelet Count 105 Thou/mm3 (140-440); RDW Standard Deviation 50.5 fL (35.1-43.9); Red Blood Count 3.00 Miln/mm3 (4.50-5.90); White Blood Count 6.1 Thou/mm3 (3.8-10.6)
[2025-11-16 15:40] LABS: Partial Thromboplastin Time 27.0 Seconds (22.0-36.0)
[2025-11-16 15:44] LABS: B-Type Natriuretic Peptide 257 pg/mL (0-100)
[2025-11-16 15:47] LABS: Alanine Aminotransferase 24 U/L (10-49); Albumin, Serum 4.0 gm/dL (3.4-4.8); Albumin/Globulin Ratio 1.6 (1.2-2.2); Alkaline Phosphatase 103 U/L (46-116); Anion Gap 10 (7-16); Aspartate Amino Transferase 17 U/L (0-34); BUN/Creatinine Ratio 15 Ratio (12-20); Bilirubin,Total 0.6 mg/dL (0.3-1.2); Blood Urea Nitrogen 41 mg/dL (9-23); Calcium 8.1 mg/dL (8.3-10.6); Calcium (Corrected) 8.1 mg/dL (8.5-10.1); Carbon Dioxide 26.6 mMol/L (20.0-31.0); Chloride 108 mMol/L (98-107); Creatinine (Component) 2.7 mg/dL (0.6-1.3); Estimated Creatinine Clearance 26.6 mL/min (>60); Globulin 2.5 gm/dL (2.3-3.5); Glucose 143 mg/dL (74-106); Osmolality,Calculated 300 (275-295); Potassium 4.9 mMol/L (3.4-5.1); Sodium 145 mMol/L (136-145); Total Protein 6.5 gm/dL (5.7-8.2); Troponin I 0.027 ng/mL (0.0-0.045); eGFR 23 See Note
[2025-11-16 19:06] LABS: Collection Type, Urine Clean Catch
[2025-11-16 19:14] LABS: Bilirubin,Urine Negative (Negative); Blood,Urine Negative (Negative); Clarity,Urine Clear (Clear/Hazy); Color,Urine Lt-Yellow (Lt Yel-Yel); Culture Indicated,Urine Not Indicated; Glucose, Urine 4+ (Negative); Hyaline Casts,Urine < 1 /hpf (0-1); Ketones,Urine Negative (Negative); Leukocyte Esterase,Urine Negative (Negative); Nitrite,Urine Negative (Negative); PH,Urine 5.0 (5.0-7.0); Protein,Urine Trace (Neg - Trace); RBC,Urine 1 /hpf (0-3); Specific Gravity,Urine 1.019 (1.001-1.035); Squamous Epithelial Cell,Urine 2 /hpf (0-5); Urobilinogen,Urine Negative mg/dL (0.0-1.0); WBC,Urine 4 /hpf (0-5)
--- NOTE | 2025-11-16 19:30 | PC.NURSE ---
pt o2 was 88 on 1l increased to 2L o2
--- NOTE | 2025-11-16 20:27 | PC.NURSE ---
pt was 83% on room air. pt cant lay flat destats.
[2025-11-16 21:06] LABS: OBS Card Expiration Date 02282028; OBS Card Lot # 0124; OBS Developer Expiration Date 12312026; OBS Developer Lot # 224; OBS QC OK? Yes; Occult Blood, Stool Negative (Negative)
[2025-11-16] MEDS: ALBUTEROL RT 2.5 MG/0.5 ML NEBU INH (21:32)
[2025-11-16] MEDS: SODIUM CHLORIDE RT SOL 0.9% 3 ML NEBU INH (21:32)
[2025-11-16] MEDS: FUROSEMIDE INJ 10 MG/ML 4ML VIAL 40 MG IVP (21:34)
--- NOTE | 2025-11-16 21:36 | ECHO_ITS ---
Patient Info Name: Ramírez Denton Age: 80 years : 1945 Gender: Male Ht: 188 cm Wt: 100 kg BSA: 2.30 m2 BP: 115 / 75 mmHg HR: 98 bpm Exam Date: 11/17/2025 8:56 AM Admit Date: 11/16/2025 Site: [facility] Room Number: [id number] Patient Status: I Exam Type: CA echo doppler complete Strategic Planning Specialist: Bibiana Christy Ordering Physician: Star Rueda Study Info Indications HFpEF - Primary Location: [id number] Left Ventricular Outflow Tract Name Value Normal LVOT 2D LVOT Diameter 2.0 cm LVOT Doppler LVOT Peak Velocity 141 cm/s LVOT Mean Gradient 4 mmHg LVOT VTI 30 cm LVOT VTI/AV VTI Ratio 0.8 LVOT Stroke Volume 93 ml Pulmonic Valve Name Value Normal PV Doppler PV Peak Velocity 91 cm/s Mitral Valve Name Value Normal MV Doppler MV Mean Gradient 2 mmHg MV Decel [place] 555 cm/s2 MV PHT 39 ms MV Area (PHT) 5.7 cm2 4.0-5.0 MV Area (Cont Eq VTI) 3.4 cm2 MV Diastolic Function MV E Peak Velocity 74 cm/s MV A Peak Velocity 89 cm/s MV E/A 0.8 MV Annular TDI MV Septal e' Velocity 7.6 cm/s MV E/e' (Septal) 9.7 MV Lateral e' Velocity 8.1 cm/s MV E/e' (Lateral) 9.2 MV e' Average 7.84 cm/s MV E/e' (Average) 9.5 Tricuspid Valve Name Value Normal TV Regurgitation Doppler TR Peak Velocity 394 cm/s Estimated PAP/RSVP RA Pressure 8 mmHg <=5 PA Systolic Pressure 70 mmHg <36 RV Systolic Pressure 70 mmHg <36 Aortic Valve Name Value Normal AV 2D/MM AV Cusp Sep (MM) 1.4 cm AV Doppler AV Peak Velocity 187 cm/s AV Mean Gradient 9 mmHg AV VTI 39 cm AV Area (Cont Eq VTI) 2.4 cm2 >=3.0 AV Area (Cont Eq Jack) 2.4 cm2 AV DI (Jack) 0.75 AV Regurgitation 2D LVOT Area 3.1 cm2 Ventricles Name Value Normal LV Dimensions 2D/MM IVS Diastolic Thickness (2D) 0.8 cm 0.6-1.0 LVID Diastole (2D) 5.3 cm 4.2-5.8 LVIW Diastolic Thickness (2D) 1.0 cm 0.6-1.0 LVID Systole (2D) 3.5 cm 2.5-4.0 LVOT Diameter 2.0 cm LV Mass (2D Cubed) 174.52 g 88.00-224.00 LV Mass Index (2D Cubed) 76 g/m2 49-115 Relative Wall Thickness (2D) 0.38 <=0.42 IVS/LVIW Diastolic Thickness (2D) 0.80 0.00-1.50 LV Fractional Shortening/Ejection Fraction 2D/MM LV Fractional Shortening (2D) 34 % 25-43 LV EF (2D Teichholz) 62 % Atria Name Value Normal LA Dimensions LA Volume (4C A-L) 37 ml LA Volume (BP A-L) 53 ml Left Ventricle Left ventricular chamber dimension is normal. Left ventricular systolic function is normal with visually estimated ejection fraction of 55-60%. There is normal geometry noted in the left ventricle. Left ventricular segmental wall motion is normal. There is grade I diastolic dysfunction in the left ventricle. Right Ventricle Right ventricular chamber dimension is moderately enlarged. Right ventricular systolic function is normal. Flattening of the ventricular septum in mid to late systole consistent with right ventricular volume overload. Left Atrium Left atrial chamber dimension is moderately enlarged. Right Atrium Right atrial chamber dimension is severely enlarged. Aortic Valve The aortic valve is trileaflet. There is moderate aortic valve sclerosis. There is mild aortic valve stenosis with a peak velocity of 187 cm/s, mean gradient of 9 mmHg, and aortic valve area of 2.4 cm2. There is trace aortic valve regurgitation. Pulmonic Valve The pulmonic valve is normal. There is no pulmonic valve stenosis. There is mild pulmonic regurgitation. Mitral Valve The mitral valve has normal leaflets. There is no mitral valve stenosis. There is mild mitral valve regurgitation. Tricuspid Valve The tricuspid valve leaflets are normal. There is no tricuspid valve stenosis. There is mild to moderate tricuspid valve regurgitation. Pulmonary hypertension, estimated pulmonary arterial systolic pressure is 70 mmHg and systemic blood pressure of 115 mmHg in systole. Pericardium/Pleural The pericardium appears normal. There is no pericardial effusion. No pleural effusion visualized. Inferior Vena Cava Dilated inferior vena cava with >50% collapse upon inspiration consistent with normal right atrial pressure, 8 mmHg. Aorta The aortic measurements are indexed to age and body surface area. The aortic root at the sinus of Valsalva is not well visualized. The prox ascending aorta is not well visualized. Summary 1. Left ventricle size is normal and systolic function is normal. Estimated ejection fraction is6 0-65%. There is grade I diastolic dysfunction. 2. Right ventricle chamber size is severely enlarged and systolic function is normal. Estimated RVSP is 70-75mmHg with RAP 8. Possible severe PHTN. 3. Flattening of the ventricular septum in mid to late systole consistent with right ventricular volume overload. 4. There is moderate aortic valve sclerosis with mild stenosis and trace regurgitation. 5. There is mild mitral and pulmonic valve regurgitation. Moderate eccentric tricuspid regurgitation with mild MAC. 6. The left atrium is moderately enlarged. The right atrium is severely enlarged. 7. Dilated IVC with estimated RA pressure 8 mmHg. Report Signatures Finalized by Bhanu Christian on 11/17/2025 01:06 PM
--- NOTE | 2025-11-16 21:40 | PC.NURSE ---
pt refused to ambulate as he gets to short of breath.
--- NOTE | 2025-11-16 21:41 | ESHP_ITS ---
<Statement entered by Kp Ramos MD - 11/17/25 05:06> 80-year-old male with significant past medical history of type 2 diabetes mellitus, HFpEF [50 to 55%, 2022], hyperlipidemia, BPH, polycythemia, lung cancer s/p bilateral lobectomy [20 years ago in [facility]], CKD presented to the hospital with chief complaints of progressive shortness of breath and generalized weakness since 1 week. He recently presented to the emergency department 3 weeks ago twice for worsening rectal bleeding with no associated pain for 2 days. At that time, fecal occult blood is positive and noted to have a drop in hemoglobin from 14- 13. At that time, ED doctor discussed the case with chamfering machine operator, Dr. Hooper and appointment was made for colonoscopy on December 09, 2025. Later patient was discharged home. Also reported that 3 weeks ago he saw Dr. Robbins who is his motor coach chauffeur and got cardiac workup including echocardiogram, nuclear stress test and noted to be within normal limits. Saw director of patient financial services, Dr. Aleman and reported that she changed his medications, stopped metformin and started him on Januvia. Since then he noted that he is having generalized weakness, increased oxygen needs. Denies fever, cough, pedal edema. Reported that he is having constipation and 3 days before coming to the hospital had an episode of bloody bowel movement and noted to have a lost so much amount of blood at the time. Also reported that he ordered oxygen online as he feels hunger for the air. [place], [place] and is able to do routine daily activities which became difficult in the last 1 week. Stopped smoking 20 years ago after he was diagnosed with the cancer and smoked for almost 40 years, [id number]. Smokes occasionally. Denies weight loss, weight gain. Vitals at the time of admission are stable. On physical examination, noted to have decreased breath sounds bilaterally. Labs at the time of admission are significant for hemoglobin 10, BUN 41, creatinine 2.7, glucose 143. Chest x-ray showed bilateral hyperinflation of lungs and scarring in the basilar areas. Patient is admitted in the hospital for acute blood loss anemia. Consulted chamfering machine operator, Dr. Hooper. Likely the blood loss is from either hemorrhoids or diverticulosis I have personally seen and examined the patient, agree with residents assessment and plan Patient plan of care was discussed with the attending physician, Dr. Raymon Ramos, PGY2 <Statement entered by Uli Ennis DO - 11/17/25 00:49> Patient was seen and examined by me. After the review of the clinical data, I agree that the patient will need an admission on observation status for shortness of breath and generalized weakness Plan of care discussed with patient who is in agreement. I Uli Ennis DO, attest that I was physically present for solomon portions of evaluation, examined the patient, reviewed the labs and imaging, and discussed the plan of care and management with the residents team. I agree with the findings and plans documented above. Documentation for date of: 11/16/25 HPI History of Present Illness Chief complaint: Chest weakness and shortness of breath History of present illness: This patient is an 80-year-old male with a history of type 2 diabetes mellitus, hypertension, hyperlipidemia, BPH, HFpEF 50 to 55% (2022), CKD, and lung cancer status post bilateral lobectomy (done at [facility]) who presented to [facility] ED on 11/16 generalized weakness and shortness of breath. Patient was admitted under observation for management of generalized weakness and dyspnea. Says about a week or 2, the patient has been feeling this generalized weakness. The patient attributes this to recent medication change of adding Januvia. Since then, the patient has been having trouble getting around his house. Since yesterday, the patient also has had sudden onset shortness of breath. Patient states that he does not have any history of any asthma or COPD and has not required any oxygen, however his PCP has recently ordered oxygen for him, but this is not going to arrive until later in the week. Patient does live at high altitude, lives alone, and rarely sees any of his neighbors, so he has not had any recent sick contacts. During evaluation in the ED, the patient was saturating in the low 90s, going up to the high 90s occasionally, on room air and sitting up (the patient usually sleeps on his couch at home). No crackles were appreciated on examination and only trace pedal edema was identified. The patient states that he follows Dr. Robbins in [place] for cardiology, and mentions that his legs are actually doing a lot better in terms of his edema today. However, the patient has not had a bowel movement in about 3 days and has not urinated at all over the past 24 hours. The patient is concerned that because of his generalized weakness and shortness of breath, he is going to have significant difficulties at home as he is barely able to walk a few steps in his house without becoming short of breath. ED course: Initial vitals significant for blood pressure of 139/74. Patient did have desaturation to 83% on room air while laying flat. Initial labs significant for hemoglobin of 10.0, platelet of 105, BNP 257. CT abdomen/pelvis shows pancreatic calcifications, renal artery calcifications, perinephric stranding, aortic calcification, and transverse prostate measuring 4.5 cm Patient was given 500 mL of NS in ED Past Surgical History: Bilateral lobectomy ([facility], 2002, 2005), back surgery Current Medication(s): Pending med rec Allergies (w/ Reactions): NKDA Family History: Father had prostate cancer in his 60s, mom had colon cancer in her early 80s, grandmother had colon cancer Occupation: Retired, used to be a police specialist Alcohol Intake: Patient denies Tobacco/Vape Use: Patient currently denies, however he did smoke in the past, stopped at 2002 and smoked 2 packs/day when he was actively smoking Other Drug Use: Patient denies Recent Travel History: Patient denies Review of Systems Review of Systems Systems Reviewed: All systems reviewed, normal except as documented Exam Vital Signs Temp Pulse Resp BP Pulse Ox O2 Del Method O2 Flow Rate 98.5 F 92 20 120/75 100 Nasal Cannula 1 11/16/25 20:00 11/16/25 21:34 11/16/25 21:33 11/16/25 21:34 11/16/25 21:33 11/16/25 20:00 11/16/25 21:33 Narrative Exam Physical Exam: General: Alert, no acute distress. Skin: Warm, dry, intact. Head: Normocephalic, atraumatic. Eye: Normal conjunctiva, PERRL. Throat: Oral mucosa moist. No obvious lesions in oropharynx. Cardiovascular: Regular rate and rhythm, no murmur, +S1/S2. Respiratory: Lungs are clear to auscultation, respirations slightly labored, no crackles, no wheezing. Gastrointestinal: Soft, nontender, distended. No guarding or rebound tenderness. Extremities: Trace pedal edema, no cyanosis, no clubbing. 2+ radial pulse bilaterally, 2+ pedal pulse bilaterally. Neuro: No focal deficits observed. Conversant, moving all extremities. No overt cerebellar signs/incoordination. Psychiatric: Cooperative, appropriate affect. Results: Labs 11/16/25 15:08 11/16/25 15:08 Labs: Short CBC 11/16/25 Range/Units 15:08 WBC 6.1 (3.8-10.6) Thou/mm3 Hgb 10.0 L (13.5-16.0) g/dL Hct 31.4 L (41.0-53.0) % Plt Count 105 L (140-440) Thou/mm3 BMP 11/16/25 15:08 Sodium 145 Potassium 4.9 Chloride 108 H Carbon Dioxide 26.6 BUN 41 H Creatinine 2.7 H Glucose 143 H Calcium 8.1 L Cardiac Enzymes 11/16/25 Range/Units 15:08 Troponin I 0.027 (0.0-0.045) ng/mL Liver Function 11/16/25 Range/Units 15:08 Total Bilirubin 0.6 (0.3-1.2) mg/dL AST 17 (0-34) U/L ALT 24 (10-49) U/L Alkaline Phosphatase 103 (46-116) U/L Albumin 4.0 (3.4-4.8) gm/dL Urine 11/16/25 Range/Units 18:59 Urine Color Lt-Yellow (Lt Yel-Yel) Urine Clarity Clear (Clear/Hazy) Urine pH 5.0 (5.0-7.0) Ur Specific [place]inda 1.019 (1.001-1.035) Urine Protein Trace (Neg - Trace) Urine Glucose (UA) 4+ A (Negative) Quality Measures Quality Measures VTE prophylaxis Advance care planning discussed with:: patient Medications Home Medications and Allergies Home Medications ?Medication ?Instructions ?Recorded ?Confirmed ?Type atorvastatin 40 mg tablet (Lipitor) 40 mg PO HS #0 tab s 02/18/16 01/05/23 History metformin 500 mg tablet 1,000 mg PO BID ##360 01/05/23 History glipizide 2.5 mg tablet, extended 5 mg PO QDAY 3 01/05/23 History release 24 hr triamterene 37.5 1 tab PO QDAY 01/05/2301/05 History mg-hydrochlorothiazide 25 mg tablet Allergies Allergy/AdvReac Type Severity Reaction Status Date / Time lettuce AdvReac Intermediate Diarrhea Verified 10/22/25 22:49 Visit Medications Acetaminophen (Acetaminophen 325 Mg Tablet) 650 mg PO Q6H PRN PRN Reason: Fever >101.5 or pain 1-3 Stop: 12/16/25 21:28 Albuterol/Ipratropium (Albuterol/Ipratropium (Duoneb) Rt Lucia 3 Ml Nebu) 3 ml INH Q2HR PRN PRN Reason: SHORTNESS OF BREATH OR WHEEZE Stop: 12/16/25 21:28 Glycerin (Glycerin, Adult 1 Ea Supp) 1 each MI X1 ONE Stop: 11/16/25 21:30 Heparin Sodium (Porcine) (Heparin Sod Inj 5000 Unit/Ml Vial) 5,000 unit SC Q12H NANCY Stop: 11/30/25 21:44 Ondansetron HCl (Ondansetron Inj 2 Mg/Ml Inj 2 Ml) 4 mg IVP Q6H PRN; Protocol PRN Reason: NAUSEA OR VOMITING Stop: 12/16/25 21:28 Sennosides (Senna/Docusate Sod 1 Tab Tablet) 1 tab PO X1 ONE; Protocol Stop: 11/16/25 21:30 Sodium Chloride (Sodium Chloride Rt Lucia 0.9% 3 Ml Nebu) 3 ml INH PRN PRN PRN Reason: SOLN Stop: 12/16/25 20:38 Last Admin: 11/16/25 21:32 Dose: 3 ml Discontinued Medications Albuterol (Albuterol Rt 2.5 Mg/0.5 Ml Nebu) 2.5 mg INH X1 ONE Stop: 11/16/25 20:40 Last Admin: 11/16/25 21:32 Dose: 2.5 mg Furosemide (Furosemide Inj 10 Mg/Ml 4ml Vial) 40 mg IVP X1 ONE Stop: 11/16/25 20:40 Last Admin: 11/16/25 21:34 Dose: 40 mg Sodium Chloride (Ns) 500 mls @ 999 mls/hr IV .Q31M ONE Stop: 11/16/25 14:48 Last Infusion: 11/16/25 15:26 Dose: Infused Assessment & Plan Plan This patient is an 80-year-old male with a history of type 2 diabetes mellitus, hypertension, hyperlipidemia, BPH, HFpEF 50 to 55% (2022), CKD, and lung cancer status post bilateral lobectomy (done at [facility]) who presented to [facility] ED on 11/16 generalized weakness and shortness of breath. Patient was admitted under observation for management of generalized weakness and dyspnea. #Generalized weakness #Shortness of breath #Dyspnea Patient noted to have generalized weakness and shortness of breath has acutely worsened to the point where he has difficulty ambulating at home and was noted to have significant desaturation in ED. On admission, patient was saturating low 90s to high 90s on room air. The patient denies ever being diagnosed with COPD, however the patient does endorse unspecified amount of years smoking 2 packs of cigarettes per day (patient states that he may have smoked more than that) and has stopped back in 2002. Patient does note that he feels like his distended abdomen may be contributing as he has not pooped for about 3 days. Diagnostic: Chest x-ray on 11/16 shows COPD with extensive pleural-parenchymal scarring throughout the lungs and pulmonary arterial hypertension Bilateral extremity venous duplex ordered, pending TSH ordered, pending Treatment: DuoNebs every 6 hours with additional DuoNebs every 2 hours as needed Azithromycin 500 mg daily Senokot S as needed for constipation PT referral ordered #BPH #Urinary retention Patient noted to have a history of BPH for which he takes Flomax for. On CT abdomen/pelvis on admission, the patient was noted to have an enlarged prostate measuring 4.5 cm. The patient noted that he had not peed the entire day, and after and out catheter before admission, patient was noted to have over 500 cc of urine output. Patient has previously seen Dr. Schulz per chart review. Diagnostic: CT abdomen/pelvis on 11/16 shows transverse prostate 4.5 cm Treatment: Resumed home Flomax 0.4 mg daily Bladder scans as needed, In-N-Out cath if volume over 400 cc Patient to follow-up outpatient #HFpEF 50 to 55% (2022) Patient noted to have a history of heart failure and previous echo showed 50 to 55% ejection fraction. Patient follows Dr. Robbins outpatient for cardiology. He does take metoprolol and Lasix for management of his heart failure. Diagnostic: Echocardiogram ordered, pending Treatment: Resumed home metoprolol 25 mg daily Resumed home Lasix 40 mg daily Resumed home aspirin 81 mg daily Keep potassium above 4 and magnesium above 2 Patient to follow-up outpatient #Wpk-[id number]-bbxoougem type 2 diabetes mellitus Patient does have history of T2DM and does not use insulin at home. Patient uses glipizide and Januvia at home. Patient believes that Januvia might be causing his generalized weakness. Treatment: Sliding scale insulin Bedside glucose checks ACHS Hemoglobin A1c ordered, pending Consistent carb diet #CKD stage IV Patient noted to have CKD with renal scarring on CT abdomen/pelvis. eGFR noted to be in mid 20s all throughout 2024. Patient follows Dr. Aleman for nephrology outpatient. Treatment: Avoid nephrotoxic drugs, renally dose medications Renal diet modification Patient to follow-up outpatient #Anemia, macrocytic #History of polycythemia Patient noted to have a hemoglobin of 10.0 with MCV of 105 on admission. Patient noted to be previously polycythemic back in 2002, likely secondary to living in high elevations. Causes possibly poor diet and possibly worsening CKD. Anemia is possibly contributing to his generalized weakness. Diagnostic: Hemoglobin on 01/12/23 was 17.7 Homocysteine and methylmalonic acid ordered, pending Treatment: Folic acid 1 mg daily Vitamin B complex/vitamin B12 1 tablet daily Patient to follow-up outpatient for further workup #History of hyperlipidemia #History of hypertension Patient does have a history of hypertension lipidemia. Resumed his home medications for these conditions. Treatment: Atorvastatin 40 mg at bedtime Metoprolol 25 mg daily DVT Prophylaxis: Heparin GI Prophylaxis: N/A Bowel: Senokot S PRN Diet: Cardiac, renal, consistent carb Garcia: N/A Lines: PIV Antibiotics: N/A Code Status: FULL Reason for Hospitalization: General Weakness and dyspnea Other Barriers to Discharge: PT evaluation Patient plan of care was discussed with the senior resident Dr. Ramos (PGY-2) and attending physician Dr. Raymon Rueda, PGY1
[2025-11-16 21:50] LABS: Base Excess, Venous -1 (-3-3); O2 Saturation, Venous 49 % (96-97); PCO2, Venous 56 mmHg (36-56); PO2, Venous 30 mmHg (15-58); pH, Venous 7.28 (7.33-7.66)
[2025-11-16] MEDS: ALBUTEROL/IPRATROPIUM (Duoneb) RT SOL 3 ML NEBU INH (22:01)
--- NOTE | 2025-11-16 22:52 | EKG_ITS ---
[facility] Test Date: 2025-11-16 Pat Name: BRIAN UNDERWOOD Department: Room: [address] Gender: Male Med Specialist: : 1945 Requested By: Kp Ramos Order Number: [id number] Reading MD: Kp Ramos Measurements Intervals [place] Rate: 76 P: 86 [place]: 242 QRS: 109 QRSD: 115 T: 91 QT: 397 QTc: 448 Interpretive Statements SINUS RHYTHM WITH FIRST DEGREE AV BLOCK RIGHT AXIS DEVIATION [QRS AXIS > 100] LOW QRS VOLTAGE IN PRECORDIAL LEADS [QRS DEFLECTION < 1.0 mV IN CHEST LEADS] MODERATE INTRAVENTRICULAR CONDUCTION DELAY [110+ ms QRS DURATION] MODERATE T-WAVE ABNORMALITY, CONSIDER ANTERIOR ISCHEMIA [-0.1+ mV T-WAVE IN V3/V4] Compared to ECG 11/16/2025 15:07:23 Right-axis deviation now present Low QRS voltage now present Intraventricular conduction delay now present T-wave abnormality now present Possible ischemia now present Myocardial infarct finding no longer present /store/S0/[id number].pdf
[2025-11-17] VITALS (15 sets, daily range): BP systolic 88–144; BP diastolic 50–87; PULSE 70–119; RESP 16–24; TEMP 36.2–36.6; O2SAT 92–98; BMI 29.5
--- NOTE | 2025-11-17 | XR_ITS ---
Examination: Venous duplex lower extremity sonogram, bilateral. Date and time of exam: November 17, 2025, 0145 hours INDICATIONS: New onset shortness of breath today Technique: Multiple sonographic images of the deep venous system have been obtained. B-mode/2-D grayscale imaging of vascular structures and Doppler spectral analysis (waveforms) and color performed Both legs are examined. Findings: Deep venous systems do not demonstrate abnormal echogenicity. All visualized deep veins exhibit compressibility. All visualized deep veins exhibit augmentation. Impression: Negative for deep vein thrombosis
[2025-11-17] MEDS: AZITHROMYCIN INJ 500 MG in SODIUM CHLORIDE 0.9% 250 ML 250 ML 250 MG IV ×2 (00:37→09:54)
[2025-11-17] MEDS: ATORVASTATIN CALCIUM 10 MG TABLET 40 MG PO (00:40)
[2025-11-17] MEDS: SENNA/DOCUSATE SOD 1 TAB TABLET PO (00:41)
[2025-11-17] MEDS: HEPARIN SOD INJ 5000 UNIT/ML VIAL SC ×2 (00:43→08:48)
--- NOTE | 2025-11-17 01:36 | PC.NURSE ---
to ultrasound via wheelchair, with O2 inih on at 2L/min/nc, accompanied by security systems integrator.
--- NOTE | 2025-11-17 02:46 | EKG_ITS ---
[facility] Test Date: 2025-11-17 Pat Name: BRIAN UNDERWOOD [facility] Gender: Male Professional Skater: LIT : 1945 Requested By: Star Rueda Order Number: [id number] Reading MD: Star Rueda Measurements Intervals [place] Rate: 88 P: 74 [place]: 248 QRS: 107 QRSD: 118 T: 34 QT: 354 QTc: 429 Interpretive Statements SINUS RHYTHM WITH FIRST DEGREE AV BLOCK MARKED RIGHT AXIS DEVIATION MODERATE INTRAVENTRICULAR CONDUCTION DELAY Compared to ECG 11/16/2025 15:08:21 First degree AV block now present Right-axis deviation now present Intraventricular conduction delay now present Atrial fibrillation no longer present Myocardial infarct finding no longer present /store/S0/[id number].pdf
--- NOTE | 2025-11-17 03:31 | PC.NURSE ---
76% to 96% O2 sat on 2L/min/nc on and off, pt asleep- Increased O2 inh on to 3L/min/nc.
--- NOTE | 2025-11-17 03:54 | PRELIM_ITS ---
Bilateral lower extremity venous Doppler ultrasound. November 17, 2025 0145 hours Clinical history: New onset SOB Technique: Duplex scan of the bilateral lower extremity deep venous systems was performed utilizing 2D grayscale imaging, Doppler spectral analysis and color flow Doppler and with compression. Comparison: No prior study is available for comparison. Findings: Osorio scale, color flow, and spectral Doppler evaluation of the bilateral lower extremity deep veins were performed. The greater saphenous vein confluence, common femoral, femoral, popliteal, and calf veins are patent and compressible. Normal respiratory variation is noted. There is no evidence of occlusive or nonocclusive thrombus. No fluid collection is demonstrated on the submitted images. Impression: No sonographic evidence of deep venous thrombosis in the bilateral lower extremities. Report Electronically Signed By: Josemanuel Hernandez 11/17/2025 3:53:12 AM [EST]
[2025-11-17 06:07] LABS: Basophils # (Auto) 0.0 Thou/mm3 (0.0-0.2); Basophils % (Auto) 1 % (0-2.5); Eosinophils # (Auto) 0.1 Thou/mm3 (0.0-0.5); Eosinophils % (Auto) 1 % (0-10); Hematocrit 30.8 % (41.0-53.0); Hemoglobin 9.7 g/dL (13.5-16.0); Immature Granulocytes Auto 0.02 Thou/mm3 (0.00-0.00); Lymphocytes # (Auto) 1.1 Thou/mm3 (1.0-4.8); Lymphocytes % (Auto) 15 % (10-50); Mean Corpuscular HGB Conc 31.5 g/dl (31.0-37.0); Mean Corpuscular Hemoglobin 33.3 pg (25.0-35.0); Mean Corpuscular Volume 106 fL (80-100); Monocytes # (Auto) 0.6 Thou/mm3 (0.0-0.8); Monocytes % (Auto) 8 % (0-12); Neutrophils # (Auto) 5.7 Thou/mm3 (1.8-7.7); Neutrophils % (Auto) 76 % (37-80); Nucleated Red Blood Cell # 0.00 Thou/mm3 (0.00-0.00); Nucleated Red Blood Cell % 0 /100 WBC (0); Platelet Count 110 Thou/mm3 (140-440); RDW Standard Deviation 51.2 fL (35.1-43.9); Red Blood Count 2.91 Miln/mm3 (4.50-5.90); White Blood Count 7.5 Thou/mm3 (3.8-10.6)
[2025-11-17] MEDS: ALBUTEROL/IPRATROPIUM (Duoneb) RT SOL 3 ML NEBU INH ×2 (07:45→13:49)
[2025-11-17 08:03] LABS: Albumin, Serum 4.0 gm/dL (3.4-4.8); Anion Gap 13 (7-16); BUN/Creatinine Ratio 14 Ratio (12-20); Blood Urea Nitrogen 37 mg/dL (9-23); Calcium 8.0 mg/dL (8.3-10.6); Calcium (Corrected) 8.0 mg/dL (8.5-10.1); Carbon Dioxide 21.9 mMol/L (20.0-31.0); Chloride 110 mMol/L (98-107); Creatinine (Component) 2.6 mg/dL (0.6-1.3); Estimated Creatinine Clearance 28.2 mL/min (>60); Glucose 90 mg/dL (74-106); Magnesium 2.1 mg/dL (1.6-2.6); Osmolality,Calculated 297 (275-295); Phosphorous 5.0 mg/dL (2.4-5.1); Potassium 4.3 mMol/L (3.4-5.1); Sodium 145 mMol/L (136-145); eGFR 24 See Note
[2025-11-17] MEDS: FOLIC ACID 1 MG TABLET PO (08:48)
[2025-11-17] MEDS: TAMSULOSIN HCL 0.4 MG CAPSULE PO (08:48)
[2025-11-17] MEDS: VITAMIN B COMPLEX TABLET 1 TAB PO (08:49)
[2025-11-17] MEDS: ASPIRIN EC 81 MG TABEC PO (08:49)
[2025-11-17] MEDS: METOPROLOL SUCCINATE XL 25 MG TABCR PO (08:49)
[2025-11-17 11:00] LABS: Thyroid Stimulating Hormone 1.29 uIU/mL (0.55-4.78)
--- NOTE | 2025-11-17 12:17 | PC.SS ---
Adult Care Provider (ESPERANZA) Luci met with the patient at bedside to complete an initial assessment and discuss a discharge plan. Patient is alert and oriented to person, place, time, and situation, and provided verbal consent to participate in the assessment. The patient was admitted for general weakness and dyspnea. Patient is Ramírez Denton, 80 y/o Cam[place]onian-speaking male residing alone at [address] [place] [address]. Patient reports a poor family support system. Patient designated his friend, Nato Grajeda, , as his surrogate medical decision maker. Patient reports that at baseline, he uses a cane and also has a walker at home. Patient reports he used to have oxygen through his insurance, but at one point was denied, so he bought his own oxygen and will be delivered on Tuesday. Patient is not on dialysis. Patient's pharmacy is [facility] [address]. Patient's PCP is Dr. Silverio. Patient's d/c plan is home, and his neighbor will provide transportation. The patient came for general weakness and lives alone; pending PT eval. The patient might also need oxygen for home. SS to remain available as needed. Surrogate medical decision maker: friend, Nato, Discharge plan: Home
[2025-11-17 13:09] LABS: Glucose Estimated Average 146 mg/dL (80-131); Hemoglobin A1C 6.7 % Hgb (4.8-6.0)
--- NOTE | 2025-11-17 13:20 | ESPR_ITS ---
Documentation for date of: 11/17/25 Subjective Subjective Interval history: Overnight admission. Seen and examined at bedside and patient does not have any complaints at this time. States that he has been having generalized weakness and dyspnea upon exertion for the last few weeks, which was preceded by multiple bright red bloody bowel movements. Hemoglobin noted to have dropped from 14 to 10 in less than a month, and was noted to be FOBT positive at that time but during this admission FOBT negative. GI was consulted and will follow-up on recommendations. Saturating 96% on 4 L nasal cannula and other vital signs stable. Hemoglobin stable at 9.7. CHEM panel showing CKD, noted to be followed by Dr. Aleman outpatient. A1c 6.7% and otherwise unremarkable. Exam Vital Signs Temp Pulse Resp BP Pulse Ox O2 Del Method O2 Flow Rate 97.1 F 89 16 115/75 93 L Nasal Cannula 5 11/17/25 08:00 11/17/25 08:49 11/17/25 08:00 11/17/25 08:49 11/17/25 08:00 11/17/25 08:00 11/17/25 08:00 Narrative Exam General: AOx3, no acute distress, able to speak full sentences HEENT: NC/AT, mucous membranes moist, bilateral sclera anicteric Cardiovascular: regular rate and rhythm, S1/S2 present, no murmurs appreciated Pulmonary: clear to auscultation bilaterally, no rales/rhonchi/wheezes Abdominal: soft, non-tender, non-distended, no rebound/guarding, normal bowel sounds present Musculoskeletal: normal ROM, no peripheral edema Skin: warm and dry, intact, no rashes Neuro: CN II-XII intact, no focal deficits Objective Labs 11/18/25 05:26 11/18/25 05:26 Labs: Laboratory Results - last 24 hr 11/16/25 11/16/25 11/16/25 15:08 18:59 20:55 WBC 6.1 RBC 3.00 L Hgb 10.0 L Hct 31.4 L MCV 105 H MCH 33.3 MCHC 31.8 RDW Std Deviation 50.5 H Plt Count 105 L Neut % (Auto) 82 H Lymph % (Auto) 13 [place] % (Auto) 5 Eos % (Auto) 1 Baso % (Auto) 0 Neut # (Auto) 5.0 Lymph # (Auto) 0.8 L [place] # (Auto) 0.3 Eos # (Auto) 0.0 Baso # (Auto) 0.0 Immature Gran # (Auto) 0.01 H Absolute Nucleated RBC 0.00 Immature Gran % 0 Nucleated RBC % 0 APTT 27.0 VBG pH VBG pCO2 VBG pO2 VBG O2 Sat (Mikey) VBG Base Excess Sodium 145 Potassium 4.9 Chloride 108 H Carbon Dioxide 26.6 Anion Gap 10 BUN 41 H Creatinine 2.7 H Estim Creat Clear Calc 26.6 L eGFR 23 L BUN/Creatinine Ratio [address] Glu mg/dL Hemoglobin A1c Calculated Osmolality 300 H Calcium 8.1 L Corrected Calcium 8.1 L Phosphorus Magnesium Total Bilirubin 0.6 AST 17 ALT 24 Alkaline Phosphatase 103 Troponin I 0.027 B-Natriuretic Peptide 257 H Total Protein 6.5 Albumin 4.0 Globulin 2.5 Albumin/Globulin Ratio 1.6 TSH Ur Collection Type Clean Catch Urine Color Lt-Yellow Urine Clarity Clear Urine pH 5.0 Ur Specific [place] 1.019 Urine Protein Trace Urine Glucose (UA) 4+ A Urine Ketones Negative Urine Blood Negative Urine Nitrite Negative Urine Bilirubin Negative Urine Urobilinogen (Auto) Negative Ur Leukocyte Esterase Negative Urine RBC 1 Urine WBC 4 Ur Squamous Epith Cells 2 Urine Bacteria None Hyaline Casts < 1 Ur Culture Indicated? Not Indicated Stool Occult Blood Negative 11/16/25 11/17/25 21:41 05:13 WBC 7.5 RBC 2.91 L Hgb 9.7 L Hct 30.8 L MCV 106 H MCH 33.3 MCHC 31.5 RDW Std Deviation 51.2 H Plt Count 110 L Neut % (Auto) 76 Lymph % (Auto) 15 [place] % (Auto) 8 Eos % (Auto) 1 Baso % (Auto) 1 Neut # (Auto) 5.7 Lymph # (Auto) 1.1 [place] # (Auto) 0.6 Eos # (Auto) 0.1 Baso # (Auto) 0.0 Immature Gran # (Auto) 0.02 H Absolute Nucleated RBC 0.00 Immature Gran % 0 Nucleated RBC % 0 APTT VBG pH 7.28 L VBG pCO2 56 VBG pO2 30 VBG O2 Sat (Mikey) 49 L VBG Base Excess -1 Sodium 145 Potassium 4.3 D Chloride 110 H Carbon Dioxide 21.9 Anion Gap 13 BUN 37 H Creatinine 2.6 H Estim Creat Clear Calc 28.2 L eGFR 24 L BUN/Creatinine Ratio [address] Glu mg/dL 146 H Hemoglobin A1c 6.7 H Calculated Osmolality 297 H Calcium 8.0 L Corrected Calcium 8.0 L Phosphorus 5.0 Magnesium 2.1 Total Bilirubin AST ALT Alkaline Phosphatase Troponin I B-Natriuretic Peptide Total Protein Albumin 4.0 Globulin Albumin/Globulin Ratio TSH 1.29 Ur Collection Type Urine Color Urine Clarity Urine pH Ur Specific [place] Urine Protein Urine Glucose (UA) Urine Ketones Urine Blood Urine Nitrite Urine Bilirubin Urine Urobilinogen (Auto) Ur Leukocyte Esterase Urine RBC Urine WBC Ur Squamous Epith Cells Urine Bacteria Hyaline Casts Ur Culture Indicated? Stool Occult Blood ABG Interpretation ABG results: 11/16/25 21:41 VBG pH 7.28 L VBG pCO2 56 VBG pO2 30 VBG Base Excess -1 Quality Measures Quality Measures VTE prophylaxis Advance care planning discussed with:: patient and spouse Assessment & Plan Assessment Current Active Medications: Generic Name Dose Route Start Last Admin Trade Name Freq PRN Reason Stop Dose Admin Acetaminophen 650 mg 11/16/25 21:29 Acetaminophen 325 Mg Tablet PO 12/16/25 21:28 Q6H PRN Fever >101.5 or pain 1-3 Albuterol/Ipratropium 3 ml 11/16/25 21:29 Albuterol/Ipratropium (Duoneb) Rt Lucia 3 Ml Nebu INH 12/16/25 21:28 Q2HR PRN SHORTNESS OF BREATH OR WHEEZE Albuterol/Ipratropium 3 ml 11/17/25 01:00 11/17/25 07:45 Albuterol/Ipratropium (Duoneb) Rt Lucia 3 Ml Nebu INH 12/17/25 00:59 3 ml Q6HRRT NANCY Administration Aspirin 81 mg 11/17/25 09:00 11/17/25 08:49 Aspirin Ec 81 Mg Tabec PO 12/17/25 08:59 81 mg QDAY NANCY Administration Atorvastatin Calcium 40 mg 11/17/25 21:00 Atorvastatin Calcium 20 Mg Tablet PO 12/17/25 20:59 HS NANCY Dextrose 25 ml 11/16/25 22:23 Dextrose 50%-Water Inj 50 Ml Syringe IV 12/16/25 22:22 Q15MIN PRN BG 50-70 responsive npo pt Dextrose 50 ml 11/16/25 22:23 Dextrose 50%-Water Inj 50 Ml Syringe IV 12/16/25 22:22 Q15MIN PRN BG <50 OR BG <70 & pt unresponsive Folic Acid 1 mg 11/17/25 09:00 11/17/25 08:48 Folic Acid 1 Mg Tablet PO 12/17/25 08:59 1 mg QDAY NANCY Administration Furosemide 40 mg 11/17/25 09:00 11/17/25 08:48 Furosemide 40 Mg Tablet PO 12/17/25 08:59 40 mg QDAY NANCY Administration Glucagon 1 mg 11/16/25 22:23 Glucagon Inj 1 Mg Vial IM Q15MIN PRN BG <70, and no IV access Heparin Sodium (Porcine) 5,000 unit 11/16/25 21:45 11/17/25 08:48 Heparin Sod Inj 5000 Unit/Ml Vial SC 11/30/25 21:44 5,000 unit Q12H NANCY Administration Azithromycin 500 mg/ Sodium 250 mls @ 250 mls/hr 11/17/25 09:15 11/17/25 09:54 Chloride IV 11/24/25 09:14 250 mls/hr QDAY NANCY Administration Insulin Human Lispro 0 unit 11/17/25 07:30 11/17/25 08:48 Insulin Lispro (Admelog) 1 Unit/0.01 Ml Unit SC 12/17/25 07:29 Not Given AC [facility] Protocol Metoprolol Succinate 25 mg 11/17/25 09:00 11/17/25 08:49 Metoprolol Succinate Xl 25 Mg Tabcr PO 12/17/25 08:59 25 mg QDAY NANCY Administration Ondansetron HCl 4 mg 11/16/25 21:29 Ondansetron Inj 2 Mg/Ml Inj 2 Ml IVP 12/16/25 21:28 Q6H PRN NAUSEA OR VOMITING Protocol Sennosides 1 tab 11/16/25 22:13 Senna/Docusate Sod 1 Tab Tablet PO 12/16/25 22:12 QDAY PRN CONSTIPATION Protocol Sodium Chloride 3 ml 11/16/25 20:39 11/16/25 21:32 Sodium Chloride Rt Lucia 0.9% 3 Ml Nebu INH 12/16/25 20:38 3 ml PRN PRN Administration SOLN Tamsulosin HCl 0.4 mg 11/17/25 09:00 11/17/25 08:48 Tamsulosin Hcl 0.4 Mg Capsule PO 12/17/25 08:59 0.4 mg QDAY [facility] Administration Vitamin B Complex/Vit C/Folic Acid 1 tab 11/17/25 09:00 11/17/25 08:49 Vitamin B Complex Tablet PO 12/17/25 08:59 1 tab QDAY [facility] Administration Attending Provider Attestation/Addendum 80-year-old male with a history of type 2 diabetes mellitus, hypertension, hyperlipidemia, BPH, HFpEF (EF 50 to 55%, 2022), CKD, lung cancer status post bilateral lobectomies at [facility] who is admitted for further workup of GI bleed. #Lower GI bleed #Bright red blood per rectum #Symptomatic, blood loss anemia #Microcytic anemia Endorses having had 3-4 bright red blood bloody bowel movements last month with a corresponding drop in hemoglobin from 14 to 10. Experiencing associated dyspnea upon exertion and shortness of breath and denies any cough, sore throat, sick contacts. Favor GI bleed versus pneumonia versus COPD exacerbation. ? GI consulted, appreciate recommendations ? Trend hemoglobin and transfuse if hemoglobin <7 ? B12 and folate supplementation ? Follow-up homocystine and methylmalonic acid levels #AHRF secondary to ? pneumonia versus COPD exacerbation Will continue to monitor oxygen levels but favor GI bleed as etiology of presentation vs pneumonia/COPD. No fever or leukocytosis. ? DuoNebs every 6 hours scheduled ? DuoNebs every 2 hours as needed ? Azithromycin 500 g daily #BPH #Urinary retention CT A/P on 11/16 shows transverse prostate of 4.5 cm. ? Tamsulosin 0.4 mg daily ? Bladder scans PRN ? Follow-up outpatient #HFpEF (EF 50 to 55%, 2022) Not in acute exacerbation. Follows Dr. Robbins outpatient. ? Follow-up echo ? Metoprolol 25 mg daily ? Lasix 40 mg daily ? Aspirin 81 mg daily ? Keep K >4, magnesium >2 #Type 2 diabetes mellitus A1c 6.7% ? SSI ? Hypoglycemia protocol in place ? Consistent carb diet #CKD stage IV CT A/P showing renal scarring. Follows Dr. Ruvalcaba outpatient. ? Avoid nephrotoxic drugs when possible, renally dose medication ? Continue outpatient follow-up #Hyperlipidemia ? Atorvastatin 40 mg at bedtime #Hypertension ? Metoprolol 25 mg daily Hospital management: Disposition: pending GI work-up and physical therapy evaluation Fluids: none Diet: Cardiac, renal, consistent carb Lines: PIV DVT prophylaxis: heparin SC Garcia: N/A, in and out caths PRN CODE STATUS: full code ----- Plan discussed with attending physician Dr. Gerry Thao MD PGY-2 Internal Medicine I have examined the patient, reviewed labs and imaging findings, discussed the case with the resident(s), and reviewed entered orders. I agree with the plan of care as outlined in this note. Dr. Gerry MD
--- NOTE | 2025-11-17 16:37 | PC.SS ---
Rounding note: Pending colonoscopy. On 4L of oxygen. d/c plan: home
--- NOTE | 2025-11-17 16:53 | PD.IMCONS ---
HPI Data of Consult Requesting Physician: Uli Ennis DO Primary Care Provider: Jennifer Silverio MD Consult Narrative Reason for consult: Weakness shortness of breath dropping hemoglobin hematocrit 9.7 and 30.8 History of present illness: 80 years old male who presented for shortness of breath weakness and general fatigue initial hemoglobin hematocrit 10 and 31.4 which is subsequently going down to 9.7 and and 30.8 with a platelet count 110,000 Patient was in the emergency room couple weeks ago with rectal bleeding and he was FOBT positive I was consulted and outpatient colonoscopy was scheduled on the December 05 But because of the worsening symptoms patient came into the emergency room and subsequently got admitted He has a history of diabetes mellitus type 2 hyperlipidemia polycythemia lung carcinoma status post bilateral lobectomy at [facility] about 20 years ago and chronic kidney disease being followed by our local medical billing instructor Dr. Aleman cc:: cc: Uli Ennis DO Review of Systems Review of Systems Systems Reviewed: All systems reviewed, normal except as documented Past Medical History Surgical History OTHER SURGICAL HX: As in the history of present illness Meds Home Medications and Allergies Home Medications ?Medication ?Instructions ?Recorded ?Confirmed ?Type atorvastatin 40 mg tablet (Lipitor) 40 mg PO HS #0 tabs 02/18/16 11/17/25 History metformin 500 mg tablet 1,000 mg PO BID ##360 06/15/16 11/17/25 History glipizide 2.5 mg tablet, extended 2.5 mg PO QDAY PRN hyperglycemia 01/05/23 11/17/25 History release 24 hr triamterene 37.5 1 tab PO QDAY 01/05/23 11/17/25 History mg-hydrochlorothiazide 25 mg tablet aspirin 81 mg chewable tablet 1 tab PO DAILY 11/17/25 11/17/25 History furosemide 40 mg tablet 40 mg PO DAILY 11/17/25 11/17/25 History irbesartan 150 mg tablet 150 mg PO DAILY 11/17/25 11/17/25 History sitagliptin phosphate 50 mg tablet 50 mg PO DAILY 11/17/25 11/17/25 History (Januvia) tamsulosin 0.4 mg capsule 0.4 mg PO HS 11/17/25 11/17/25 History Allergies Allergy/AdvReac Type Severity Reaction Status Date / Time lettuce AdvReac Intermediate Diarrhea Verified 10/22/25 22:49 Exam Vital Signs Temp Pulse Resp BP Pulse Ox O2 Del Method O2 Flow Rate 97.8 F 82 18 119/50 L 96 Nasal Cannula 4 11/17/25 12:00 11/17/25 16:00 11/17/25 13:50 11/17/25 12:00 11/17/25 13:50 11/17/25 12:00 11/17/25 13:50 Constitutional Comments: Chronically ill-appearing Routine Respiratory Exam Comments: Normal to auscultation Routine Abdominal Exam Comments: Soft nontender Results Labs 11/17/25 05:13 11/17/25 05:13 Labs: Short CBC 11/17/25 Range/Units 05:13 WBC 7.5 (3.8-10.6) Thou/mm3 Hgb 9.7 L (13.5-16.0) g/dL Hct 30.8 L (41.0-53.0) % Plt Count 110 L (140-440) Thou/mm3 BMP 11/17/25 05:13 Sodium 145 Potassium 4.3 D Chloride 110 H Carbon Dioxide 21.9 BUN 37 H Creatinine 2.6 H Glucose 90 D Calcium 8.0 L Liver Function 11/17/25 Range/Units 05:13 Albumin 4.0 (3.4-4.8) gm/dL Urine 11/16/25 Range/Units 18:59 Urine Color Lt-Yellow (Lt Yel-Yel) Urine Clarity Clear (Clear/Hazy) Urine pH 5.0 (5.0-7.0) Ur Specific [place] 1.019 (1.001-1.035) Urine Protein Trace (Neg - Trace) Urine Glucose (UA) 4+ A (Negative) ABG Interpretation ABG results: 11/16/25 21:41 VBG pH 7.28 L VBG pCO2 56 VBG pO2 30 VBG Base Excess -1 Assessment and Plan Additional Assessment & Plan Additional Plan: # Anemia blood loss # Hematochezia Plan Clear liquid diet GoLytely prep If 1 gallon is not enough start the second gallon Consent obtained for fiberoptic colonoscopy as well as fiberoptic upper endoscopy with biopsy and therapeutic intervention if needed under intravenous moderate sedation Once patient is clear n.p.o. Both upper endoscopy and colonoscopy tentatively scheduled for tomorrow Other medical problems include Diabetes mellitus type 2 Hyperlipidemia Polycythemia Lung carcinoma status post bilateral lobectomy 20 years ago at [facility] CKD stage III being followed by medical billing instructor Dr. Aleman Thank you very much for the opportunity to participate in the care of this patient
[2025-11-17] MEDS: NA SU/NAHCO3/KC/PEG (Golytely) 4,000 ML BTL 4000 ML PO (17:10)
--- NOTE | 2025-11-17 19:36 | PC.NURSE ---
pt ambulated to restroom with walker on room air with 66% O2 sat- Applied extension tubing to O2 to reach restroom. Irritation to nasal with scant amount of blood- Applied humidifier to O2.
[2025-11-18] VITALS (19 sets, daily range): BP systolic 94–134; BP diastolic 55–73; PULSE 79–117; RESP 12–83; TEMP 36.2–37.1; O2SAT 92–99; BMI 15.0
[2025-11-18] MEDS: NA SU/NAHCO3/KC/PEG (Golytely) 4,000 ML BTL 4000 ML PO (06:14)
[2025-11-18 06:22] LABS: Albumin, Serum 3.8 gm/dL (3.4-4.8); Anion Gap 12 (7-16); BUN/Creatinine Ratio 13 Ratio (12-20); Blood Urea Nitrogen 32 mg/dL (9-23); Calcium 8.4 mg/dL (8.3-10.6); Calcium (Corrected) 8.6 mg/dL (8.5-10.1); Carbon Dioxide 27.0 mMol/L (20.0-31.0); Chloride 105 mMol/L (98-107); Creatinine (Component) 2.4 mg/dL (0.6-1.3); Estimated Creatinine Clearance 30.6 mL/min (>60); Glucose 97 mg/dL (74-106); Magnesium 2.0 mg/dL (1.6-2.6); Osmolality,Calculated 293 (275-295); Phosphorous 3.6 mg/dL (2.4-5.1); Potassium 4.1 mMol/L (3.4-5.1); Sodium 144 mMol/L (136-145); eGFR 26 See Note
[2025-11-18 06:24] LABS: Basophils # (Auto) 0.0 Thou/mm3 (0.0-0.2); Basophils % (Auto) 1 % (0-2.5); Eosinophils # (Auto) 0.1 Thou/mm3 (0.0-0.5); Eosinophils % (Auto) 2 % (0-10); Hematocrit 32.2 % (41.0-53.0); Hemoglobin 10.0 g/dL (13.5-16.0); Immature Granulocytes Auto 0.02 Thou/mm3 (0.00-0.00); Lymphocytes # (Auto) 1.1 Thou/mm3 (1.0-4.8); Lymphocytes % (Auto) 15 % (10-50); Mean Corpuscular HGB Conc 31.1 g/dl (31.0-37.0); Mean Corpuscular Hemoglobin 32.9 pg (25.0-35.0); Mean Corpuscular Volume 106 fL (80-100); Monocytes # (Auto) 0.5 Thou/mm3 (0.0-0.8); Monocytes % (Auto) 7 % (0-12); Neutrophils # (Auto) 5.1 Thou/mm3 (1.8-7.7); Neutrophils % (Auto) 75 % (37-80); Nucleated Red Blood Cell # 0.00 Thou/mm3 (0.00-0.00); Nucleated Red Blood Cell % 0 /100 WBC (0); Platelet Count 130 Thou/mm3 (140-440); RDW Standard Deviation 52.0 fL (35.1-43.9); Red Blood Count 3.04 Miln/mm3 (4.50-5.90); White Blood Count 6.8 Thou/mm3 (3.8-10.6)
[2025-11-18] MEDS: TAMSULOSIN HCL 0.4 MG CAPSULE PO (08:48)
[2025-11-18] MEDS: FOLIC ACID 1 MG TABLET PO (08:48)
[2025-11-18] MEDS: AZITHROMYCIN INJ 500 MG in SODIUM CHLORIDE 0.9% 250 ML 250 ML 250 MG IV (08:48)
[2025-11-18] MEDS: VITAMIN B COMPLEX TABLET 1 TAB PO (08:48)
--- NOTE | 2025-11-18 14:05 | ESPR_ITS ---
<Statement entered by Mark Dumont MD - 11/18/25 14:40> Patient was seen and examined at the bedside. Patient presented with weakness and bowel movement with blood. GI has been consulted and will follow-up with EGD and colonoscopy results. A1c came 6.7. Hemoglobin stable at 10. Kidney function showed BUN 32 and creatinine 2.4. Will follow-up with GI recommendations. I discussed and supervised with the sales and marketing intern physician who took care of this patient. I personally saw and examined the patient. I agree with most of the assessment and plan. Disclaimer: Despite multiple revisions, due to the dictation software being used, the document bellow may not be free of grammatical errors including phonetic/typographic errors. However, this does not deter from our commitment to providing health care in the patient's best interest in mind. Plan of care discussed with attending Physician Dr. Ney Dumont MD PGY-3 Documentation for date of: 11/18/25 Subjective Subjective Interval history: No overnight events. Patient was examined at bedside; they appear A&Ox3 and in NAD. Vitals/labs today significant for BP 94/73, HR 117, SpO2 94% on 4 L NC, Hgb 9.7->10.0, BUN 37->32, creatinine 2.6->2.4, hemoglobin A1c 6.7. Physical exam was non-contributory. Metoprolol and Lasix were held this morning due to patient's slightly low BP. 11/17 echo has returned showing EF 60-65%, enlarged RV w/ RVSP 70-75 mmHg, RAP 8, possible severe PHTN, and dilated IVC. Otherwise, patient is currently on GoLytely and pending EGD and colonoscopy today. Exam Vital Signs Temp Pulse Resp BP Pulse Ox O2 Del Method O2 Flow Rate 97.2 F 99 24 H 124/64 98 Nasal Cannula 4 11/18/25 12:00 11/18/25 12:00 11/18/25 12:11/18/25 12:11/18/25 12:00 11/18/25 12:00 11/18/25 12:00 Narrative Exam General: AOx3, no acute distress, able to speak full sentences HEENT: NC/AT, mucous membranes moist, bilateral sclera anicteric Cardiovascular: regular rate and rhythm, S1/S2 present, no murmurs appreciated Pulmonary: clear to auscultation bilaterally, no rales/rhonchi/wheezes Abdominal: soft, non-tender, non-distended, no rebound/guarding, normal bowel sounds present Musculoskeletal: normal ROM, no peripheral edema Skin: warm and dry, intact, no rashes Neuro: CN II-XII intact, no focal deficits Objective Labs 11/25/25 05:11 11/25/25 05:11 Labs: Laboratory Results - last 24 hr 11/18/25 05:26 WBC 6.8 RBC 3.04 L Hgb 10.0 L Hct 32.2 L MCV 106 H MCH 32.9 MCHC 31.1 RDW Std Deviation 52.0 H Plt Count 130 L Neut % (Auto) 75 Lymph % (Auto) 15 [place] % (Auto) 7 Eos % (Auto) 2 Baso % (Auto) 1 Neut # (Auto) 5.1 Lymph # (Auto) 1.1 [place] # (Auto) 0.5 Eos # (Auto) 0.1 Baso # (Auto) 0.0 Immature Gran # (Auto) 0.02 H Absolute Nucleated RBC 0.00 Immature Gran % 0 Nucleated RBC % 0 Sodium 144 Potassium 4.1 Chloride 105 Carbon Dioxide 27.0 Anion Gap 12 BUN 32 H Creatinine 2.4 H Estim Creat Clear Calc 30.6 L eGFR 26 L BUN/Creatinine Ratio 13 Glucose 97 Calculated Osmolality 293 Calcium 8.4 Corrected Calcium 8.6 Phosphorus 3.6 Magnesium 2.0 Albumin 3.8 ABG Interpretation ABG results: 11/16/25 21:41 VBG pH 7.28 L VBG pCO2 56 VBG pO2 30 VBG Base Excess -1 Quality Measures Quality Measures VTE prophylaxis Advance care planning discussed with:: patient Assessment & Plan Assessment Current Active Medications: Generic Name Dose Route Start Last Admin Trade Name Freq PRN Reason Stop Dose Admin Acetaminophen 650 mg 11/16/25 21:29 Acetaminophen 325 Mg Tablet PO 12/16/25 21:28 Q6H PRN Fever >101.5 or pain 1-3 Albuterol/Ipratropium 3 ml 11/16/25 21:29 Albuterol/Ipratropium (Duoneb) Rt Lucia 3 Ml Nebu INH 12/16/25 21:28 Q2HR PRN SHORTNESS OF BREATH OR WHEEZE Albuterol/Ipratropium 3 ml 11/17/25 01:00 11/18/25 13:26 Albuterol/Ipratropium (Duoneb) Rt Lucia 3 Ml Nebu INH 12/17/25 00:59 Not Given Q6HRRT NANCY Aspirin 81 mg 11/17/25 09:00 11/18/25 08:43 Aspirin Ec 81 Mg Tabec PO 12/17/25 08:59 Not Given QDAY NANCY Atorvastatin Calcium 40 mg 11/17/25 21:00 11/17/25 22:37 Atorvastatin Calcium 20 Mg Tablet PO 12/17/25 20:59 Not Given HS NANCY Dextrose 25 ml 11/16/25 22:23 Dextrose 50%-Water Inj 50 Ml Syringe IV 12/16/25 22:22 Q15MIN PRN BG 50-70 responsive npo pt Dextrose 50 ml 11/16/25 22:23 Dextrose 50%-Water Inj 50 Ml Syringe IV 12/16/25 22:22 Q15MIN PRN BG <50 OR BG <70 & pt unresponsive Folic Acid 1 mg 11/17/25 09:00 11/18/25 08:48 Folic Acid 1 Mg Tablet PO 12/17/25 08:59 1 mg QDAY [facility] Administration Furosemide 40 mg 11/17/25 09:00 11/18/25 08:47 Furosemide 40 Mg Tablet PO 12/17/25 08:59 Not Given QDAY NANCY Glucagon 1 mg 11/16/25 22:23 Glucagon Inj 1 Mg Vial IM Q15MIN PRN BG <70, and no IV access Heparin Sodium (Porcine) 5,000 unit 11/16/25 21:45 11/18/25 08:48 Heparin Sod Inj 5000 Unit/Ml Vial SC 11/30/25 21:44 Not Given Q12H [facility] Azithromycin 500 mg/ Sodium 250 mls @ 250 mls/hr 11/17/25 09:15 11/18/25 09:48 Chloride IV 11/24/25 09:14 Infused QDAY [facility] Infusion Insulin Human Lispro 0 unit 11/17/25 07:30 11/18/25 11:24 Insulin Lispro (Admelog) 1 Unit/0.01 Ml Unit SC 12/17/25 07:29 Not Given AC [facility] Protocol Metoprolol Succinate 25 mg 11/17/25 09:00 11/18/25 08:47 Metoprolol Succinate Xl 25 Mg Tabcr PO 12/17/25 08:59 Not Given QDAY NANCY Ondansetron HCl 4 mg 11/16/25 21:29 Ondansetron Inj 2 Mg/Ml Inj 2 Ml IVP 12/16/25 21:28 Q6H PRN NAUSEA OR VOMITING Protocol Sennosides 1 tab 11/16/25 22:13 Senna/Docusate Sod 1 Tab Tablet PO 12/16/25 22:12 QDAY PRN CONSTIPATION Protocol Sodium Chloride 3 ml 11/16/25 20:39 11/16/25 21:32 Sodium Chloride Rt Lucia 0.9% 3 Ml Nebu INH 12/16/25 20:38 3 ml PRN PRN Administration SOLN Tamsulosin HCl 0.4 mg 11/17/25 09:00 11/18/25 08:48 Tamsulosin Hcl 0.4 Mg Capsule PO 12/17/25 08:59 0.4 mg QDAY NANCY Administration Vitamin B Complex/Vit C/Folic Acid 1 tab 11/17/25 09:00 11/18/25 08:48 Vitamin B Complex Tablet PO 12/17/25 08:59 1 tab QDAY NANCY Administration Plan 80-year-old male with a history of type 2 diabetes mellitus, hypertension, hyperlipidemia, BPH, HFpEF (EF 50 to 55%, 2022), CKD, lung cancer status post bilateral lobectomies at [facility] who is admitted for further workup of GI bleed. #Lower GI bleed #Bright red blood per rectum #Symptomatic, blood loss anemia #Microcytic anemia Endorses having had 3-4 bright red blood bloody bowel movements last month with a corresponding drop in hemoglobin from 14 to 10. Experiencing associated dyspnea upon exertion and shortness of breath and denies any cough, sore throat, sick contacts. Favor GI bleed versus pneumonia versus COPD exacerbation. Dx: -11/18 EGD and colonoscopy scheduled, showed ___ Rx: -GI consulted, appreciate recommendations -Trend hemoglobin and transfuse if hemoglobin <7 -B12 and folate supplementation -Follow-up homocystine and methylmalonic acid levels #Acute hypoxic respiratory failure / #Community acquired pneumonia versus COPD exacerbation 11/16 CXR showed extensive pleural parenchymal scarring throughout the lungs as well as pulmonary hypertension Will continue to monitor oxygen levels but favor GI bleed as etiology of presentation vs pneumonia/COPD. No fever or leukocytosis. Rx: ? DuoNebs every 6 hours scheduled ? DuoNebs every 2 hours as needed ? Azithromycin 500 g daily #BPH #Urinary retention CT A/P on 11/16 shows transverse prostate of 4.5 cm. ? Tamsulosin 0.4 mg daily ? Bladder scans PRN ? Follow-up outpatient #HFpEF (EF 60-65%) Not in acute exacerbation. Follows Dr. Robbins outpatient. Recent echo this visit showed marked right ventricular hypertrophy, likely 2/2 significant scarring of the lungs i/s/o lung cancer s/p bilateral lobectomies Dx: -11/16/25 echo ordered, showed EF 60-65%, enlarged RV w/ RVSP 70-75 mmHg, RAP 8, possible severe PHTN, and dilated IVC Rx: ? Metoprolol 25 mg daily ? Lasix 40 mg daily ? Aspirin 81 mg daily ? Keep K >4, magnesium >2 #Type 2 diabetes mellitus A1c 6.7% ? SSI ? Hypoglycemia protocol in place ? Consistent carb diet #CKD stage IV CT A/P showing renal scarring. Follows Dr. Ruvalcaba outpatient. ? Avoid nephrotoxic drugs when possible, renally dose medication ? Continue outpatient follow-up #Hyperlipidemia ? Atorvastatin 40 mg at bedtime #Hypertension ? Metoprolol 25 mg daily Hospital management: Disposition: Med Surg, pending GI endoscopic studies and physical therapy evaluation Fluids: None Diet: Cardiac, renal, consistent carb Lines: PIV DVT prophylaxis: heparin SC Garcia: N/A, in and out caths PRN CODE STATUS: full code ----- Plan discussed with attending physician Dr. Gerry Brewster, DO PGY-1 Internal Medicine Attending Provider Attestation/Addendum I have examined the patient, reviewed labs and imaging findings, discussed the case with the resident(s), and reviewed entered orders. I agree with the plan of care as outlined in this note. Dr. Garrett
--- NOTE | 2025-11-18 15:11 | PC.NURSE ---
Pt off floor to Endo
[2025-11-18] MEDS: SODIUM CHLORIDE 0.9% 500 ML 500 ML 20 ML IV (15:55)
--- NOTE | 2025-11-18 16:07 | PC.SS ---
rounding note: Dx: CoPD. Attempting to wean off 02. Pending colonoscopy. Poss d/c Tuesday. If patient cannot be weaned off , he will need new home . Nursing will need to document 02 sats.
--- NOTE | 2025-11-18 16:38 | SUR.PHASEI ---
pt received from OR in recovery bay 1. pt asleep but responds to voice, breathing unlabored on oxymask 10l. v/s stable. report received from Rupa SEVILLA.
--- NOTE | 2025-11-18 16:49 | SUR.OPER ---
AT 1555 PT OXYGEN SATURATIONS STARTED TO DECLINE SIGNIFICANTLY, XOCHILT MCDERMOTT CALLED FOR AMBU BAG. WITH NO IMPROVEMENTS, HE PROCEED TO INTUBATE THE PATIENT AT 1558. INTUBATION WAS SUCCESSFUL. AFTER CASE WAS COMPLETED, PATIENT WAS EXTUBATED AT 1633. OXYMASK AT 10L PLACED ON PATIENT. TRANSFERRED OUT TO PACU AT 1638. REPORT GIVEN TO ELIDA SEVILLA.
--- NOTE | 2025-11-18 17:25 | SUR.PHASEI ---
pt awake and alert, breathing unlabored on 4l nc. v/s stable. report called to Tyrone SEVILLA. pt will be transferred to room at this time.
[2025-11-18] MEDS: ATORVASTATIN CALCIUM 20 MG TABLET 40 MG PO (21:10)
[2025-11-18] MEDS: HEPARIN SOD INJ 5000 UNIT/ML VIAL SC (21:16)
[2025-11-19] VITALS (10 sets, daily range): BP systolic 111–150; BP diastolic 69–87; PULSE 84–104; RESP 18–25; TEMP 36.2–36.9; O2SAT 96–99; BMI 14.0
[2025-11-19 06:13] LABS: Basophils # (Auto) 0.0 Thou/mm3 (0.0-0.2); Basophils % (Auto) 0 % (0-2.5); Eosinophils # (Auto) 0.1 Thou/mm3 (0.0-0.5); Eosinophils % (Auto) 2 % (0-10); Hematocrit 30.7 % (41.0-53.0); Hemoglobin 9.5 g/dL (13.5-16.0); Immature Granulocytes Auto 0.02 Thou/mm3 (0.00-0.00); Lymphocytes # (Auto) 0.8 Thou/mm3 (1.0-4.8); Lymphocytes % (Auto) 11 % (10-50); Mean Corpuscular HGB Conc 30.9 g/dl (31.0-37.0); Mean Corpuscular Hemoglobin 32.3 pg (25.0-35.0); Mean Corpuscular Volume 104 fL (80-100); Monocytes # (Auto) 0.5 Thou/mm3 (0.0-0.8); Monocytes % (Auto) 7 % (0-12); Neutrophils # (Auto) 5.5 Thou/mm3 (1.8-7.7); Neutrophils % (Auto) 80 % (37-80); Nucleated Red Blood Cell # 0.00 Thou/mm3 (0.00-0.00); Nucleated Red Blood Cell % 0 /100 WBC (0); Platelet Count 118 Thou/mm3 (140-440); RDW Standard Deviation 50.4 fL (35.1-43.9); Red Blood Count 2.94 Miln/mm3 (4.50-5.90); White Blood Count 6.9 Thou/mm3 (3.8-10.6)
[2025-11-19 06:41] LABS: Albumin, Serum 3.6 gm/dL (3.4-4.8); Anion Gap 7 (7-16); BUN/Creatinine Ratio 13 Ratio (12-20); Blood Urea Nitrogen 26 mg/dL (9-23); Calcium 8.4 mg/dL (8.3-10.6); Calcium (Corrected) 8.7 mg/dL (8.5-10.1); Carbon Dioxide 28.0 mMol/L (20.0-31.0); Chloride 109 mMol/L (98-107); Creatinine (Component) 2.0 mg/dL (0.6-1.3); Estimated Creatinine Clearance 36.7 mL/min (>60); Glucose 119 mg/dL (74-106); Magnesium 2.0 mg/dL (1.6-2.6); Osmolality,Calculated 292 (275-295); Phosphorous 3.6 mg/dL (2.4-5.1); Potassium 4.4 mMol/L (3.4-5.1); Sodium 144 mMol/L (136-145); eGFR 33 See Note
[2025-11-19] MEDS: AZITHROMYCIN INJ 500 MG in SODIUM CHLORIDE 0.9% 250 ML 250 ML 250 MG IV (08:21)
[2025-11-19] MEDS: ASPIRIN EC 81 MG TABEC PO (08:22)
[2025-11-19] MEDS: TAMSULOSIN HCL 0.4 MG CAPSULE PO (08:22)
[2025-11-19] MEDS: VITAMIN B COMPLEX TABLET 1 TAB PO (08:22)
[2025-11-19] MEDS: METOPROLOL SUCCINATE XL 25 MG TABCR PO (08:22)
[2025-11-19] MEDS: FOLIC ACID 1 MG TABLET PO (08:22)
[2025-11-19] MEDS: HEPARIN SOD INJ 5000 UNIT/ML VIAL SC ×2 (08:53→20:58)
[2025-11-19] MEDS: FUROSEMIDE INJ 10 MG/ML 4ML VIAL 40 MG IVP (10:39)
[2025-11-19] MEDS: cefTRIAXone/D5w 1gm IV premix 1 GM/50 ML BAG IV (10:47)
--- NOTE | 2025-11-19 11:10 | ESPR_ITS ---
Documentation for date of: 11/19/25 Subjective Subjective Interval history: Hemoglobin hematocrit 9.5 and 30.7 patient status post band ligation of the Large internal hemorrhoids external hemorrhoids left alone Exam Vital Signs Temp Pulse Resp BP Pulse Ox O2 Del Method O2 Flow Rate 97.2 F 99 18 115/76 98 Nasal Cannula 4 11/19/25 08:00 11/19/25 10:39 11/19/25 08:00 11/19/25 10:39 11/19/25 08:00 11/19/25 08:00 11/19/25 08:00 Objective Labs 11/19/25 05:37 11/19/25 05:37 Labs: Laboratory Results - last 24 hr 11/19/25 05:37 WBC 6.9 RBC 2.94 L Hgb 9.5 L Hct 30.7 L MCV 104 H MCH 32.3 MCHC 30.9 L RDW Std Deviation 50.4 H Plt Count 118 L Neut % (Auto) 80 Lymph % (Auto) 11 [place] % (Auto) 7 Eos % (Auto) 2 Baso % (Auto) 0 Neut # (Auto) 5.5 Lymph # (Auto) 0.8 L [place] # (Auto) 0.5 Eos # (Auto) 0.1 Baso # (Auto) 0.0 Immature Gran # (Auto) 0.02 H Absolute Nucleated RBC 0.00 Immature Gran % 0 Nucleated RBC % 0 Sodium 144 Potassium 4.4 Chloride 109 H Carbon Dioxide 28.0 Anion Gap 7 BUN 26 H Creatinine 2.0 H Estim Creat Clear Calc 36.7 L eGFR 33 L BUN/Creatinine Ratio 13 Glucose 119 H Calculated Osmolality 292 Calcium 8.4 Corrected Calcium 8.7 Phosphorus 3.6 Magnesium 2.0 Albumin 3.6 Impressions Impression: Gastritis Duodenitis Diverticulosis left colon Large inflamed internal hemorrhoid status post band ligation Advance diet Outpatient follow-up ABG Interpretation ABG results: 11/16/25 21:41 VBG pH 7.28 L VBG pCO2 56 VBG pO2 30 VBG Base Excess -1 Assessment & Plan A&P Narrative # Anemia blood loss # Hematochezia Plan Clear liquid diet GoLytely prep If 1 gallon is not enough start the second gallon Consent obtained for fiberoptic colonoscopy as well as fiberoptic upper endoscopy with biopsy and therapeutic intervention if needed under intravenous moderate sedation Once patient is clear n.p.o. Both upper endoscopy and colonoscopy tentatively scheduled for tomorrow Other medical problems include Diabetes mellitus type 2 Hyperlipidemia Polycythemia Lung carcinoma status post bilateral lobectomy 20 years ago at [facility] CKD stage III being followed by trimming machine set up operator Dr. Aleman Thank you very much for the opportunity to participate in the care of this patient Time Spent With Patient Time: Total time spent is greater than 50% in coordination of care (as documented) at patient's floor/unit and/or counseling patient:
--- NOTE | 2025-11-19 16:44 | ESPR_ITS ---
<Statement entered by Avis Manrique MD - 11/23/25 12:56> I reviewed above note and agree with findings and plans. I have also personally examined the patient with medicine team and went over assessment and plan with medical team including internet marketing strategist and resident physician. <Statement entered by Mark Dumont MD - 11/19/25 18:15> Patient was seen and examined at the bedside. Patient reported to have shortness of breath with increased requirement of oxygen. Patient was already following support director, Dr. Robbins as outpatient and is currently on Lasix therapy. Cardiology was agreeable to give an additional dose of Lasix and he will see the patient as well. GI bleed workup with EGD and colonoscopy were negative and we will likely monitor for shortness of breath. Hemoglobin remained stable. All labs and orders were reviewed. I discussed and supervised with the internet marketing strategist physician who took care of this patient. I personally saw and examined the patient. I agree with most of the assessment and plan. Disclaimer: Despite multiple revisions, due to the dictation software being used, the document bellow may not be free of grammatical errors including phonetic/typographic errors. However, this does not deter from our commitment to providing health care in the patient's best interest in mind. Plan of care discussed with attending Physician Dr. Ney Dumont MD PGY-3 Documentation for date of: 11/19/25 Subjective Subjective Interval history: No overnight events. Patient was examined at bedside; they appear A&Ox3 and in NAD. Vitals/labs today significant for hemoglobin 10.0->9.5, creatinine 2.4- >2.0, 24HR UOP 800 cc. Physical exam was non-contributory. Today, an attempt to down titrate oxygen requirements to 2 L nasal cannula was made but patient began to desat which prompted return to 5 L. It is suspected that patient remains in a fluid overloaded state and, with cardiology's (Dr. Robbins) blessing, patient was given an additional dose of Lasix on top of his regular regimen. GI bleed workup with EGD and colonoscopy were all negative and patient's hemoglobin has remained stable. Under the premise of treating possible community-acquired pneumonia, Rocephin was also started in addition to patient's azithromycin and Advair Diskus was scheduled for further support for patient's respiratory status. Exam Vital Signs Temp Pulse Resp BP Pulse Ox O2 Del Method O2 Flow Rate 98.4 F 99 21 H 132/82 H 98 Nasal Cannula 4 11/19/25 11:40 11/19/25 11:40 11/19/25 11:40 11/19/25 11:40 11/19/25 11:40 11/19/25 11:40 11/19/25 11:40 Narrative Exam General: AOx3, no acute distress, able to speak full sentences HEENT: NC/AT, mucous membranes moist, bilateral sclera anicteric Cardiovascular: regular rate and rhythm, S1/S2 present, no murmurs appreciated Pulmonary: clear to auscultation bilaterally, no rales/rhonchi/wheezes Abdominal: soft, non-tender, non-distended, no rebound/guarding, normal bowel sounds present Musculoskeletal: normal ROM, no peripheral edema Skin: warm and dry, intact, no rashes Neuro: CN II-XII intact, no focal deficits Objective Labs 11/19/25 05:37 11/19/25 05:37 Labs: Laboratory Results - last 24 hr 11/19/25 05:37 WBC 6.9 RBC 2.94 L Hgb 9.5 L Hct 30.7 L MCV 104 H MCH 32.3 MCHC 30.9 L RDW Std Deviation 50.4 H Plt Count 118 L Neut % (Auto) 80 Lymph % (Auto) 11 [place] % (Auto) 7 Eos % (Auto) 2 Baso % (Auto) 0 Neut # (Auto) 5.5 Lymph # (Auto) 0.8 L [place] # (Auto) 0.5 Eos # (Auto) 0.1 Baso # (Auto) 0.0 Immature Gran # (Auto) 0.02 H Absolute Nucleated RBC 0.00 Immature Gran % 0 Nucleated RBC % 0 Sodium 144 Potassium 4.4 Chloride 109 H Carbon Dioxide 28.0 Anion Gap 7 BUN 26 H Creatinine 2.0 H Estim Creat Clear Calc 36.7 L eGFR 33 L BUN/Creatinine Ratio 13 Glucose 119 H Calculated Osmolality 292 Calcium 8.4 Corrected Calcium 8.7 Phosphorus 3.6 Magnesium 2.0 Albumin 3.6 ABG Interpretation ABG results: 11/16/25 21:41 VBG pH 7.28 L VBG pCO2 56 VBG pO2 30 VBG Base Excess -1 Quality Measures Quality Measures VTE prophylaxis Advance care planning discussed with:: patient Assessment & Plan Assessment Current Active Medications: Generic Name Dose Route Start Last Admin Trade Name Vladimir PRN Reason Stop Dose Admin Acetaminophen 650 mg 11/16/25 21:29 Acetaminophen 325 Mg Tablet PO 12/16/25 21:28 Q6H PRN Fever >101.5 or pain 1-3 Albuterol/Ipratropium 3 ml 11/19/25 10:08 Albuterol/Ipratropium (Duoneb) Rt Lucia 3 Ml Nebu INH 12/17/25 00:59 Q6HRRT PRN wheezing Aspirin 81 mg 11/17/25 09:00 11/19/25 08:22 Aspirin Ec 81 Mg Tabec PO 12/17/25 08:59 81 mg QDAY NANCY Administration Atorvastatin Calcium 40 mg 11/17/25 21:00 11/18/25 21:10 Atorvastatin Calcium 20 Mg Tablet PO 12/17/25 20:59 40 mg HS NANCY Administration Dextrose 25 ml 11/16/25 22:23 Dextrose 50%-Water Inj 50 Ml Syringe IV 12/16/25 22:22 Q15MIN PRN BG 50-70 responsive npo pt Dextrose 50 ml 11/16/25 22:23 Dextrose 50%-Water Inj 50 Ml Syringe IV 12/16/25 22:22 Q15MIN PRN BG <50 OR BG <70 & pt unresponsive Folic Acid 1 mg 11/17/25 09:00 11/19/25 08:22 Folic Acid 1 Mg Tablet PO 12/17/25 08:59 1 mg QDAY NANCY Administration Furosemide 40 mg 11/17/25 09:00 11/19/25 08:22 Furosemide 40 Mg Tablet PO 12/17/25 08:59 40 mg QDAY NANCY Administration Glucagon 1 mg 11/16/25 22:23 Glucagon Inj 1 Mg Vial IM Q15MIN PRN BG <70, and no IV access Heparin Sodium (Porcine) 5,000 unit 11/16/25 21:45 11/19/25 08:53 Heparin Sod Inj 5000 Unit/Ml Vial SC 11/30/25 21:44 5,000 unit Q12H NANCY Administration Azithromycin 500 mg/ Sodium 250 mls @ 250 mls/hr 11/17/25 09:15 11/19/25 08:21 Chloride IV 11/24/25 09:14 250 mls/hr QDAY NANCY Administration Ceftriaxone Sodium/Dextrose 1 gm in 50 mls @ 100 mls/hr 11/19/25 10:39 11/19/25 10:47 Rocephin/D5w 1gm Iv Premix IV 11/26/25 10:38 100 mls/hr QDAY NANCY Administration Insulin Human Lispro 0 unit 11/17/25 07:30 11/19/25 07:40 Insulin Lispro (Admelog) 1 Unit/0.01 Ml Unit SC 12/17/25 07:29 Not Given AC NANCY Protocol Metoprolol Succinate 25 mg 11/17/25 09:00 11/19/25 08:22 Metoprolol Succinate Xl 25 Mg Tabcr PO 12/17/25 08:59 25 mg QDAY NANCY Administration Ondansetron HCl 4 mg 11/16/25 21:29 Ondansetron Inj 2 Mg/Ml Inj 2 Ml IVP 12/16/25 21:28 Q6H PRN NAUSEA OR VOMITING Protocol Fluticasone/Salmeterol 1 puff 11/19/25 10:15 Fluticasone/Salmeterol 250/50 14 Dose Inh INH 12/19/25 10:14 BIDRT NANCY Sennosides 1 tab 11/16/25 22:13 Senna/Docusate Sod 1 Tab Tablet PO 12/16/25 22:12 QDAY PRN CONSTIPATION Protocol Sodium Chloride 3 ml 11/16/25 20:39 11/16/25 21:32 Sodium Chloride Rt Lucia 0.9% 3 Ml Nebu INH 12/16/25 20:38 3 ml PRN PRN Administration SOLN Tamsulosin HCl 0.4 mg 11/17/25 09:00 11/19/25 08:22 Tamsulosin Hcl 0.4 Mg Capsule PO 12/17/25 08:59 0.4 mg QDAY NANCY Administration Vitamin B Complex/Vit C/Folic Acid 1 tab 11/17/25 09:00 11/19/25 08:22 Vitamin B Complex Tablet PO 12/17/25 08:59 1 tab QDAY NANCY Administration Plan 80-year-old male with a history of type 2 diabetes mellitus, hypertension, hyperlipidemia, BPH, HFpEF (EF 50 to 55%, 2022), CKD, lung cancer status post bilateral lobectomies at [facility] who is admitted for further workup of GI bleed. #Lower GI bleed, 2/2 external and internal hemorrhoids, s/p banding on 11/19 #Bright red blood per rectum #Symptomatic, blood loss anemia #Microcytic anemia Endorses having had 3-4 bright red blood bloody bowel movements last month with a corresponding drop in hemoglobin from 14 to 10. Experiencing associated dyspnea upon exertion and shortness of breath and denies any cough, sore throat, sick contacts. Favor GI bleed versus pneumonia versus COPD exacerbation. Dx: -11/18 EGD and colonoscopy scheduled, showed normal esophagus with some erythema of antrum mucosa and duodenum top-coto and showed external and internal hemorrhoids which were banded bottom-coto Rx: -GI consulted, appreciate recommendations -GI recommends outpatient air-contrast barium enema, which will be mentioned in the discharge instructions -Trend hemoglobin and transfuse if hemoglobin <7 -B12 and folate supplementation -Follow-up homocystine and methylmalonic acid levels #Acute hypoxic respiratory failure 2/2 #CHF exacerbation vs. community acquired pneumonia versus COPD exacerbation 11/16 CXR showed extensive pleural parenchymal scarring throughout the lungs as well as pulmonary hypertension Will continue to monitor oxygen levels but favor CHF exacerbation and volume overloaded status as primary contributor of ongoing increased oxygen demand Rx: ? DuoNebs every 6 hours scheduled ? DuoNebs every 2 hours as needed ? Azithromycin 500 mg IV daily [11/16--] ? Rocephin 1 g IV daily [11/19--] ? Fluticasone/salmeterol 1 puff twice daily #BPH #Urinary retention CT A/P on 11/16 shows transverse prostate of 4.5 cm. ? Tamsulosin 0.4 mg daily ? Bladder scans PRN ? Follow-up outpatient #HFpEF (EF 60-65%) Not in acute exacerbation. Follows Dr. Robbins outpatient. Recent echo this visit showed marked right ventricular hypertrophy, likely 2/2 significant scarring of the lungs i/s/o lung cancer s/p bilateral lobectomies Dx: -11/16/25 echo ordered, showed EF 60-65%, enlarged RV w/ RVSP 70-75 mmHg, RAP 8, possible severe PHTN, and dilated IVC Rx: ? Cardiology consulted (Dr. Robbins), appreciate recommendations ? Metoprolol 25 mg daily ? Lasix 40 mg daily (w/ additional Lasix dose given off-schedule on 11/19) ? Aspirin 81 mg daily ? Keep K >4, magnesium >2 #Type 2 diabetes mellitus A1c 6.7% ? SSI ? Hypoglycemia protocol in place ? Consistent carb diet #CKD stage IV CT A/P showing renal scarring. Follows Dr. Ruvalcaba outpatient. ? Avoid nephrotoxic drugs when possible, renally dose medication ? Continue outpatient follow-up #Hyperlipidemia ? Atorvastatin 40 mg at bedtime #Hypertension ? Metoprolol 25 mg daily Hospital management: Disposition: Med Surg Diet: Cardiac Lines: PIV DVT prophylaxis: heparin SC Garcia: N/A, in and out caths PRN CODE STATUS: Full Code ----- Plan discussed with attending physician Dr. Hilaria Brewster, DO PGY-1 Internal Medicine
[2025-11-19] MEDS: ATORVASTATIN CALCIUM 20 MG TABLET 40 MG PO (20:57)
[2025-11-20] VITALS (9 sets, daily range): BP systolic 124–139; BP diastolic 65–75; PULSE 72–101; RESP 17–20; TEMP 36.1–36.7; O2SAT 92–99
--- NOTE | 2025-11-20 01:02 | ESCONSULT_ITS ---
RE: BRIAN UNDERWOOD : 1945 DATE OF CONSULTATION: 11/19/2025 CONSULTING PHYSICIAN: Hospitalist. REASON FOR CONSULTATION: Evaluation of shortness of breath, acute decompensated heart failure, [id number] pulmonary hypertension and congestive heart failure with preserved ejection fraction. CHIEF COMPLAINT: Severe shortness of breath. HISTORY OF PRESENT ILLNESS: The patient is an 80-year-old male with past medical history of hypertension and congestive heart failure with preserved ejection fraction. Recent echo showed normal ejection fraction. A 10/23/2025 echo in my office showed normal ejection fraction, right heart structures were normal, and PA pressure was also normal. He has a history of hypertension, diabetes, metabolic syndrome, and longstanding hypertension with heart failure symptoms and medical management. Patient came to the hospital with severe shortness of breath, could not breathe, and workup shows that there is extensive pulmonary infiltrates. Left side has significant abnormal findings including pleural parenchymal disease throughout the lungs, prominent, and there is possible chronic obstructive lung disease and significant pulmonary pathology is seen. Cardiac echo surprisingly showed evidence of fairly severe pulmonary hypertension, PA pressure estimated 70 mmHg, TR velocity is 4 meters and there is a definite enlargement of right ventricle, and flattening of the septum. Left ventricle function is, however, normal with preserved ejection fraction 60% and mild LVH. There is a definite change from before. Patient has been receiving diuretics with some response to diuretics. Patient has been given Lasix 40 mg x1. ALLERGIES: NONE. MEDICATIONS: The patient's home medications include: 1. Aspirin daily. 2. Atorvastatin 40 daily. 3. Lasix 40 mg daily. 4. Glipizide 2.5 daily. 5. Irbesartan 150 daily. 6. Januvia 50 mg daily. 7. Metoprolol succinate 25 mg daily. 8. Tamsulosin 0.4 mg daily. PAST MEDICAL HISTORY: Hypertension, congestive heart failure with preserved ejection fraction, type 2 diabetes mellitus, metabolic syndrome, and psoriasis. SOCIAL HISTORY: Patient not a smoker currently but used to smoke. Does not drink alcoholic beverages. FAMILY HISTORY: Noncontributory. PHYSICAL EXAMINATION: GENERAL: Elderly male, alert, awake, in no acute distress, still having some shortness of breath requiring oxygen supplement 4 liter nasal cannula. VITAL SIGNS: Blood pressure 134/87, pulse 94, respirations 24, Temp 97.4. Oxygen saturation 98% on room air. NECK: Supple. JVD is still present 5-6 cm above sternal angle. CHEST: Symmetrical. LUNGS: Decreased breath sounds at bases. Both sides diminished breath sounds, left side dullness. HEART: S1 and S2 regular, no gallops. ABDOMEN: Slightly distended, soft, no organomegaly. EXTREMITIES: No edema. GENITOURINARY AND RECTAL: Not performed. NOTEREADER: Normal. DIAGNOSTIC DATA: Echocardiogram showed sinus rhythm with nonspecific changes. Cardiac echo showed evidence of pulmonary hypertension, PA pressure 70 mmHg, and right ventricle enlargement. Lab data showed hemoglobin 9.5. Chemistry panel showed creatinine was 2.6 on admission, now 2.0. BUN is 26. Chest x-ray shows extensive pulmonary infiltrates. The BNP was also performed that showed 257. Chest x-ray showed evidence of pulmonary congestion as well as extensive infiltrates. There is probably some element of congestive heart failure. IMPRESSION: 1. Acute decompensated congestive heart failure with preserved ejection fraction, possibly due to diastolic dysfunction. 2. Extensive pulmonary parenchymal based disease and congestive heart failure. 3. Severe pulmonary hypertension, PA pressure around 70 mmHg. 4. Mixed hypertension versus possible pulmonary disease and cor pulmonale versus cardiogenic group 2 pulmonary hypertension, which is unusual. Heart failure do not cause generally severe elevation of PA pressures. RECOMMENDATION AND DISCUSSION: I would recommend patient continue on Lasix 40 mg daily and continue the monitoring of renal function and diuresis and oxygen supplementation. Once patient stabilizes medically, I will probably work up for possible primary pulmonary hypertension, but there is enough reasons for pulmonary hypertension, both heart failure with preserved ejection fraction as well as possibly pulmonary disease as well. Thank you for referring this patient for cardiovascular evaluation. We will be glad to follow the patient with you. DT: :51:21 TT: 01:00:00 Ref: [id number] - TID: [id number]
[2025-11-20 05:37] LABS: Basophils # (Auto) 0.0 Thou/mm3 (0.0-0.2); Basophils % (Auto) 1 % (0-2.5); Eosinophils # (Auto) 0.1 Thou/mm3 (0.0-0.5); Eosinophils % (Auto) 2 % (0-10); Hematocrit 30.1 % (41.0-53.0); Hemoglobin 9.3 g/dL (13.5-16.0); Immature Granulocytes Auto 0.01 Thou/mm3 (0.00-0.00); Lymphocytes # (Auto) 0.8 Thou/mm3 (1.0-4.8); Lymphocytes % (Auto) 15 % (10-50); Mean Corpuscular HGB Conc 30.9 g/dl (31.0-37.0); Mean Corpuscular Hemoglobin 32.5 pg (25.0-35.0); Mean Corpuscular Volume 105 fL (80-100); Monocytes # (Auto) 0.4 Thou/mm3 (0.0-0.8); Monocytes % (Auto) 8 % (0-12); Neutrophils # (Auto) 4.0 Thou/mm3 (1.8-7.7); Neutrophils % (Auto) 75 % (37-80); Nucleated Red Blood Cell # 0.00 Thou/mm3 (0.00-0.00); Nucleated Red Blood Cell % 0 /100 WBC (0); Platelet Count 127 Thou/mm3 (140-440); RDW Standard Deviation 50.5 fL (35.1-43.9); Red Blood Count 2.86 Miln/mm3 (4.50-5.90); White Blood Count 5.3 Thou/mm3 (3.8-10.6)
[2025-11-20 05:55] LABS: Albumin, Serum 3.8 gm/dL (3.4-4.8); Anion Gap 9 (7-16); BUN/Creatinine Ratio 12 Ratio (12-20); Blood Urea Nitrogen 24 mg/dL (9-23); Calcium 8.1 mg/dL (8.3-10.6); Calcium (Corrected) 8.3 mg/dL (8.5-10.1); Carbon Dioxide 29.7 mMol/L (20.0-31.0); Chloride 107 mMol/L (98-107); Creatinine (Component) 2.0 mg/dL (0.6-1.3); Estimated Creatinine Clearance 36.9 mL/min (>60); Glucose 123 mg/dL (74-106); Magnesium 1.7 mg/dL (1.6-2.6); Osmolality,Calculated 295 (275-295); Phosphorous 3.8 mg/dL (2.4-5.1); Potassium 4.0 mMol/L (3.4-5.1); Sodium 146 mMol/L (136-145); eGFR 33 See Note
[2025-11-20] MEDS: AZITHROMYCIN INJ 500 MG in SODIUM CHLORIDE 0.9% 250 ML 250 ML 250 MG IV (08:53)
[2025-11-20] MEDS: VITAMIN B COMPLEX TABLET 1 TAB PO (08:54)
[2025-11-20] MEDS: TAMSULOSIN HCL 0.4 MG CAPSULE PO (08:54)
[2025-11-20] MEDS: FOLIC ACID 1 MG TABLET PO (08:54)
[2025-11-20] MEDS: HEPARIN SOD INJ 5000 UNIT/ML VIAL SC (08:54)
[2025-11-20] MEDS: METOPROLOL SUCCINATE XL 25 MG TABCR PO (08:54)
[2025-11-20] MEDS: ASPIRIN EC 81 MG TABEC PO (08:55)
--- NOTE | 2025-11-20 09:32 | PC.SS ---
Follow up note: Patient needs new home 02. Remains on 5L of 02 today. [place] Patient [place]'s snowed in and he doesn't have his vehicle. SS updated physician at bedside. They will be keeping patient until Tuesday and re-evaluate. SS submitted orders and supplemental documentation on [employer] for a delivery on Tuesday.
[2025-11-20] MEDS: cefTRIAXone/D5w 1gm IV premix 1 GM/50 ML BAG IV (10:05)
[2025-11-20] MEDS: CALCIUM CARBONATE 600 MG TABLET PO (10:06)
--- NOTE | 2025-11-20 10:39 | XR_ITS ---
AP portable upright chest film 11/20/2025 at 10:55 a.m. Comparison study 11/16/2025 CLINICAL INDICATION: Shortness of breath FINDINGS: There is prominent cardiomegaly unchanged. There is very heavy vascular calcification in the aorta. There is significant enlargement of the central pulmonary arteries bilaterally indicating pulmonary arterial hypertension. There is diffuse interstitial infiltrate noted over the lower half of the right lung, this appears to have increased moderately over the right lower lobe since the previous film. Again noted are multiple chronic pleural and diaphragmatic adhesions at the right lung base. On the left, the lung was clear on the prior film however there is very mild but definite interstitial infiltrate seen over the lower lateral left lung. Chronic pleural diaphragmatic adhesions are again seen at the left lung base. The upper lung zones do appear hyperlucent which would be consistent with COPD IMPRESSION: 1. Significant cardiomegaly unchanged. Significant dilatation of the central pulmonary arteries unchanged. 2. Hyperlucency is again seen in the upper lung zones consistent with COPD 3 the findings over the lower half the right lung are strongly suggestive of chronic interstitial lung disease, but there appears to be definite increase in interstitial infiltrate in the right lower lobe since the last film suggesting superimposed pneumonia. 4 the entire left lung was clear on the last film, there is now a very mild interstitial infiltrate along the lower lateral margin of the left lung, also consistent with mild interstitial infiltrate
[2025-11-20] MEDS: Magnesium Sulfate 4 GM Ivpb 4 GM/50 ML BAG IV (10:47)
--- NOTE | 2025-11-20 15:07 | ESPR_ITS ---
<Statement entered by Avis Manrique MD - 11/25/25 07:58> I reviewed above note and agree with findings and plans. I have also personally examined the patient with medicine team and went over assessment and plan with medical team including internet sales consultant and resident physician. <Statement entered by Mark Dumont MD - 11/20/25 15:32> Patient was seen and examined at the bedside. No acute overnight events were reported.. Patient continues to remain on high oxygen requirement. Cardiology recommended to keep the patient for 1 to 2 days continue with Lasix 40 mg once daily and he will be discharged in next 24 to 48 hours with home oxygen given high requirement and echo was significant for pulmonary hypertension with RV dilation. RVSP 70-75 mmHg. Based on echo. Repeat chest x-ray showed increasing interstitial infiltrate in the right lower lobe therefore we will continue with IV antibiotic therapy with ceftriaxone and azithromycin. All labs and orders were reviewed. I discussed and supervised with the internet sales consultant physician who took care of this patient. I personally saw and examined the patient. I agree with most of the assessment and plan. Disclaimer: Despite multiple revisions, due to the dictation software being used, the document bellow may not be free of grammatical errors including phonetic/typographic errors. However, this does not deter from our commitment to providing health care in the patient's best interest in mind. Plan of care discussed with attending Physician Dr. Ney Dumont MD PGY-3 Documentation for date of: 11/20/25 Subjective Subjective Interval history: Patient was seen and examined at the bedside. No acute overnight events were reported. Patient continues to remain on high oxygen requirement. Cardiology recommended to keep the patient for 1 to 2 days continue with Lasix 40 mg once daily and he will be discharged in next 24 to 48 hours with home oxygen given high requirement and echo significant for pulmonary hypertension with RV dilation. Based on echo, RVSP 70-75 mmHg. Repeat chest x-ray showed increasing interstitial infiltrate in the right lower lobe therefore we will continue with IV antibiotic therapy with ceftriaxone and azithromycin. Exam Vital Signs Temp Pulse Resp BP Pulse Ox O2 Del Method O2 Flow Rate 97.6 F 95 18 124/74 94 L Room Air 4 11/20/25 12:00 11/20/25 12:00 11/20/25 12:00 11/20/25 12:00 11/20/25 12:00 11/20/25 12:00 11/20/25 12:00 Narrative Exam General: AOx3, no acute distress, able to speak full sentences HEENT: NC/AT, mucous membranes moist, bilateral sclera anicteric Cardiovascular: regular rate and rhythm, S1/S2 present, no murmurs appreciated Pulmonary: clear to auscultation bilaterally, no rales/rhonchi/wheezes Abdominal: soft, non-tender, non-distended, no rebound/guarding, normal bowel sounds present Musculoskeletal: normal ROM, no peripheral edema Skin: warm and dry, intact, no rashes Neuro: CN II-XII intact, no focal deficits Objective Labs 11/20/25 04:24 11/20/25 04:24 Labs: Laboratory Results - last 24 hr 11/20/25 04:24 WBC 5.3 RBC 2.86 L Hgb 9.3 L Hct 30.1 L MCV 105 H MCH 32.5 MCHC 30.9 L RDW Std Deviation 50.5 H Plt Count 127 L Neut % (Auto) 75 Lymph % (Auto) 15 [place] % (Auto) 8 Eos % (Auto) 2 Baso % (Auto) 1 Neut # (Auto) 4.0 Lymph # (Auto) 0.8 L [place] # (Auto) 0.4 Eos # (Auto) 0.1 Baso # (Auto) 0.0 Immature Gran # (Auto) 0.01 H Absolute Nucleated RBC 0.00 Immature Gran % 0 Nucleated RBC % 0 Sodium 146 H Potassium 4.0 Chloride 107 Carbon Dioxide 29.7 Anion Gap 9 BUN 24 H Creatinine 2.0 H Estim Creat Clear Calc 36.9 L eGFR 33 L BUN/Creatinine Ratio 12 Glucose 123 H Calculated Osmolality 295 Calcium 8.1 L Corrected Calcium 8.3 L Phosphorus 3.8 Magnesium 1.7 Albumin 3.8 ABG Interpretation ABG results: 11/16/25 21:41 VBG pH 7.28 L VBG pCO2 56 VBG pO2 30 VBG Base Excess -1 Quality Measures Quality Measures VTE prophylaxis Advance care planning discussed with:: other Assessment & Plan Assessment Current Active Medications: Generic Name Dose Route Start Last Admin Trade Name Freq PRN Reason Stop Dose Admin Acetaminophen 650 mg 11/16/25 21:29 Acetaminophen 325 Mg Tablet PO 12/16/25 21:28 Q6H PRN Fever >101.5 or pain 1-3 Albuterol/Ipratropium 3 ml 11/19/25 10:08 Albuterol/Ipratropium (Duoneb) Rt Lucia 3 Ml Nebu INH 12/17/25 00:59 Q6HRRT PRN wheezing Aspirin 81 mg 11/17/25 09:00 11/20/25 08:55 Aspirin Ec 81 Mg Tabec PO 12/17/25 08:59 81 mg QDAY NANCY Administration Atorvastatin Calcium 40 mg 11/17/25 21:00 11/19/25 20:57 Atorvastatin Calcium 20 Mg Tablet PO 12/17/25 20:59 40 mg HS NANCY Administration Dextrose 25 ml 11/16/25 22:23 Dextrose 50%-Water Inj 50 Ml Syringe IV 12/16/25 22:22 Q15MIN PRN BG 50-70 responsive npo pt Dextrose 50 ml 11/16/25 22:23 Dextrose 50%-Water Inj 50 Ml Syringe IV 12/16/25 22:22 Q15MIN PRN BG <50 OR BG <70 & pt unresponsive Folic Acid 1 mg 11/17/25 09:00 11/20/25 08:54 Folic Acid 1 Mg Tablet PO 12/17/25 08:59 1 mg QDAY NANCY Administration Furosemide 40 mg 11/21/25 09:00 Furosemide Inj 10 Mg/Ml 4ml Vial IVP 12/21/25 08:59 QDAY NANCY Glucagon 1 mg 11/16/25 22:23 Glucagon Inj 1 Mg Vial IM Q15MIN PRN BG <70, and no IV access Heparin Sodium (Porcine) 5,000 unit 11/16/25 21:45 11/20/25 08:54 Heparin Sod Inj 5000 Unit/Ml Vial SC 11/30/25 21:44 5,000 unit Q12H NANCY Administration Azithromycin 500 mg/ Sodium 250 mls @ 250 mls/hr 11/17/25 09:15 11/20/25 08:53 Chloride IV 11/24/25 09:14 250 mls/hr QDAY NANCY Administration Ceftriaxone Sodium/Dextrose 1 gm in 50 mls @ 100 mls/hr 11/19/25 10:39 11/20/25 10:05 Rocephin/D5w 1gm Iv Premix IV 11/26/25 10:38 100 mls/hr QDAY NANCY Administration Insulin Human Lispro 0 unit 11/17/25 07:30 11/20/25 11:26 Insulin Lispro (Admelog) 1 Unit/0.01 Ml Unit SC 12/17/25 07:29 Not Given AC NANCY Protocol Metoprolol Succinate 25 mg 11/17/25 09:00 11/20/25 08:54 Metoprolol Succinate Xl 25 Mg Tabcr PO 12/17/25 08:59 25 mg QDAY NANCY Administration Ondansetron HCl 4 mg 11/16/25 21:29 Ondansetron Inj 2 Mg/Ml Inj 2 Ml IVP 12/16/25 21:28 Q6H PRN NAUSEA OR VOMITING Protocol Fluticasone/Salmeterol 1 puff 11/19/25 10:15 11/20/25 09:53 Fluticasone/Salmeterol 250/50 14 Dose Inh INH 12/19/25 10:14 Not Given BIDRT NANCY Sennosides 1 tab 11/16/25 22:13 Senna/Docusate Sod 1 Tab Tablet PO 12/16/25 22:12 QDAY PRN CONSTIPATION Protocol Sodium Chloride 3 ml 11/16/25 20:39 11/16/25 21:32 Sodium Chloride Rt Lucia 0.9% 3 Ml Nebu INH 12/16/25 20:38 3 ml PRN PRN Administration SOLN Tamsulosin HCl 0.4 mg 11/17/25 09:00 11/20/25 08:54 Tamsulosin Hcl 0.4 Mg Capsule PO 12/17/25 08:59 0.4 mg QDAY NANCY Administration Vitamin B Complex/Vit C/Folic Acid 1 tab 11/17/25 09:00 11/20/25 08:54 Vitamin B Complex Tablet PO 12/17/25 08:59 1 tab QDAY NANCY Administration Plan 80-year-old male with a history of type 2 diabetes mellitus, hypertension, hyperlipidemia, BPH, HFpEF (EF 50 to 55%, 2022), CKD, lung cancer status post bilateral lobectomies at [facility] who is admitted for further workup of GI bleed. #Lower GI bleed, 2/2 external and internal hemorrhoids, s/p banding on 11/19 #Bright red blood per rectum #Symptomatic, blood loss anemia #Microcytic anemia Endorses having had 3-4 bright red blood bloody bowel movements last month with a corresponding drop in hemoglobin from 14 to 10. Experiencing associated dyspnea upon exertion and shortness of breath and denies any cough, sore throat, sick contacts. Favor GI bleed versus pneumonia versus COPD exacerbation. Dx: -11/18 EGD and colonoscopy scheduled, showed normal esophagus with some erythema of antrum mucosa and duodenum top-coto and showed external and internal hemorrhoids which were banded bottom-coto Rx: -GI consulted, appreciate recommendations -GI recommends outpatient air-contrast barium enema, which will be mentioned in the discharge instructions -Trend hemoglobin and transfuse if hemoglobin <7 -B12 and folate supplementation -Follow-up homocystine and methylmalonic acid levels #Acute hypoxic respiratory failure 2/ #CHF exacerbation vs. community acquired pneumonia versus COPD exacerbation 11/16 CXR showed extensive pleural parenchymal scarring throughout the lungs as well as pulmonary hypertension Will continue to monitor oxygen levels but favor CHF exacerbation and volume overloaded status as primary contributor of ongoing increased oxygen demand Dx: -Repeat CXR ordered, showed increasing interstitial infiltrate in the right lower lobe Rx: ? DuoNebs every 6 hours scheduled ? DuoNebs every 2 hours as needed ? Azithromycin 500 mg IV daily [11/16--] ? Rocephin 1 g IV daily [11/19--] ? Fluticasone/salmeterol 1 puff twice daily #BPH #Urinary retention CT A/P on 11/16 shows transverse prostate of 4.5 cm. ? Tamsulosin 0.4 mg daily ? Bladder scans PRN ? Follow-up outpatient #HFpEF (EF 60-65%) #Pulmonary hypertension with right ventricular dilation Not in acute exacerbation. Follows Dr. Robbins outpatient. Recent echo this visit showed marked right ventricular hypertrophy, likely 2/2 significant scarring of the lungs i/s/o lung cancer s/p bilateral lobectomies Dx: -11/16/25 echo ordered, showed EF 60-65%, enlarged RV w/ RVSP 70-75 mmHg, RAP 8, possible severe PHTN, and dilated IVC Rx: ? Cardiology consulted (Dr. Robbins), appreciate recommendations ? Metoprolol 25 mg daily ? Lasix 40 mg IV daily ? Aspirin 81 mg daily ? Keep K >4, magnesium >2 #Type 2 diabetes mellitus A1c 6.7% ? SSI ? Hypoglycemia protocol in place ? Consistent carb diet #CKD stage IV CT A/P showing renal scarring. Follows Dr. Ruvalcaba outpatient. ? Avoid nephrotoxic drugs when possible, renally dose medication ? Continue outpatient follow-up #Hyperlipidemia ? Atorvastatin 40 mg at bedtime #Hypertension ? Metoprolol 25 mg daily Hospital management: Disposition: Med Surg, anticipate discharge within 1-2 days Diet: Cardiac Lines: PIV DVT prophylaxis: heparin SC Garcia: N/A, in and out caths PRN CODE STATUS: Full Code ----- Plan discussed with attending physician Dr. Hilaria Brewster, DO PGY-1 Internal Medicine
--- NOTE | 2025-11-20 18:07 | ESPR_ITS ---
Documentation for date of: 11/20/25 Subjective Subjective Interval history: Hemoglobin hematocrit 9.3 and 30.1 Patient shortness of breath and cardiology on board Exam Vital Signs Temp Pulse Resp BP Pulse Ox O2 Del Method O2 Flow Rate 97.6 F 90 19 127/75 97 Nasal Cannula 4 11/20/25 16:00 11/20/25 16:00 11/20/25 16:00 11/20/25 16:00 11/20/25 16:00 11/20/25 16:00 11/20/25 16:00 Objective Labs 11/20/25 04:24 11/20/25 04:24 Labs: Laboratory Results - last 24 hr 11/20/25 04:24 WBC 5.3 RBC 2.86 L Hgb 9.3 L Hct 30.1 L MCV 105 H MCH 32.5 MCHC 30.9 L RDW Std Deviation 50.5 H Plt Count 127 L Neut % (Auto) 75 Lymph % (Auto) 15 [place] % (Auto) 8 Eos % (Auto) 2 Baso % (Auto) 1 Neut # (Auto) 4.0 Lymph # (Auto) 0.8 L [place] # (Auto) 0.4 Eos # (Auto) 0.1 Baso # (Auto) 0.0 Immature Gran # (Auto) 0.01 H Absolute Nucleated RBC 0.00 Immature Gran % 0 Nucleated RBC % 0 Sodium 146 H Potassium 4.0 Chloride 107 Carbon Dioxide 29.7 Anion Gap 9 BUN 24 H Creatinine 2.0 H Estim Creat Clear Calc 36.9 L eGFR 33 L BUN/Creatinine Ratio 12 Glucose 123 H Calculated Osmolality 295 Calcium 8.1 L Corrected Calcium 8.3 L Phosphorus 3.8 Magnesium 1.7 Albumin 3.8 Impressions Impression: Anemia blood loss due to an large internal hemorrhoidal bleed status post band ligation Shortness of breath in the setting of congestive heart failure and primary pulmonary hypertension Continue current management ABG Interpretation ABG results: 11/16/25 21:41 VBG pH 7.28 L VBG pCO2 56 VBG pO2 30 VBG Base Excess -1 Assessment & Plan A&P Narrative # Anemia blood loss # Hematochezia Plan Clear liquid diet GoLytely prep If 1 gallon is not enough start the second gallon Consent obtained for fiberoptic colonoscopy as well as fiberoptic upper endoscopy with biopsy and therapeutic intervention if needed under intravenous moderate sedation Once patient is clear n.p.o. Both upper endoscopy and colonoscopy tentatively scheduled for tomorrow Other medical problems include Diabetes mellitus type 2 Hyperlipidemia Polycythemia Lung carcinoma status post bilateral lobectomy 20 years ago at [facility] CKD stage III being followed by [facility] Dr. Aleman Thank you very much for the opportunity to participate in the care of this patient Time Spent With Patient Time: Total time spent is greater than 50% in coordination of care (as documented) at patient's floor/unit and/or counseling patient:
[2025-11-20] MEDS: ATORVASTATIN CALCIUM 20 MG TABLET 40 MG PO (20:28)
[2025-11-21] VITALS (11 sets, daily range): BP systolic 129–136; BP diastolic 77–90; PULSE 78–104; RESP 18–20; TEMP 36.1–36.8; O2SAT 93–96; BMI 29.9
--- NOTE | 2025-11-21 00:24 | ESPR_ITS ---
RE: BRIAN DENTON : 1945 DATE OF SERVICE: 11/20/2025 Brian Denton is admitted to the hospital with multiple problems, shortness of breath and congestive heart failure symptoms. He has buxsxmay-kw-nintxk pulmonary hypertension, PA pressure of 70. He is responding well to diuretic therapy but still having some shortness of breath. There may be an element of primary pulmonary hypertension which will need investigation later on. Clinically, he is still short of breath; continues to have shortness of breath at minimal exertion or requiring oxygen. OBJECTIVE: Vital Signs: Stable. Blood pressure 127/72, pulse rate is 90, respirations 18, temperature normal. Saturation is 97% on 4 L nasal cannula. Head: Unremarkable. Neck: Supple. JVD is present. Chest: Symmetrical. Lungs: Decreased breath sounds. No rales, no rhonchi. Heart: S1, S2 regular. Distant. Abdomen: Thin and soft. Extremities: No edema. and Rectal: Not performed. Neurologic: Exam normal. LABORATORY DATA: Hemoglobin and hematocrit is 9.3 and 30. Creatinine 2.0. BUN 24. IMPRESSION: 1. Acute decompensated heart failure with preserved ejection fraction. 2. Dyboxkko-[id number] pulmonary hypertension, possibly due to lung disease and heart failure, could be primary pulmonary hypertension. RECOMMENDATIONS: 1. Continue diuretic therapy and also treat the underlying issues including hypoxia. 2. Once the patient is discharged, I will do right and left heart cardiac catheterization for assessment of possible primary pulmonary hypertension as the cause of the shortness of breath. DT: 23:12:42 TT: 00:23:00 Ref: [id number] - TID: [id number]
[2025-11-21 05:10] LABS: Basophils # (Auto) 0.0 Thou/mm3 (0.0-0.2); Basophils % (Auto) 1 % (0-2.5); Eosinophils # (Auto) 0.1 Thou/mm3 (0.0-0.5); Eosinophils % (Auto) 2 % (0-10); Hematocrit 30.9 % (41.0-53.0); Hemoglobin 9.5 g/dL (13.5-16.0); Immature Granulocytes Auto 0.01 Thou/mm3 (0.00-0.00); Lymphocytes # (Auto) 0.7 Thou/mm3 (1.0-4.8); Lymphocytes % (Auto) 12 % (10-50); Mean Corpuscular HGB Conc 30.7 g/dl (31.0-37.0); Mean Corpuscular Hemoglobin 31.9 pg (25.0-35.0); Mean Corpuscular Volume 104 fL (80-100); Monocytes # (Auto) 0.4 Thou/mm3 (0.0-0.8); Monocytes % (Auto) 7 % (0-12); Neutrophils # (Auto) 4.5 Thou/mm3 (1.8-7.7); Neutrophils % (Auto) 78 % (37-80); Nucleated Red Blood Cell # 0.00 Thou/mm3 (0.00-0.00); Nucleated Red Blood Cell % 0 /100 WBC (0); Platelet Count 126 Thou/mm3 (140-440); RDW Standard Deviation 48.9 fL (35.1-43.9); Red Blood Count 2.98 Miln/mm3 (4.50-5.90); White Blood Count 5.7 Thou/mm3 (3.8-10.6)
[2025-11-21 05:31] LABS: Albumin, Serum 3.8 gm/dL (3.4-4.8); Anion Gap 9 (7-16); BUN/Creatinine Ratio 13 Ratio (12-20); Blood Urea Nitrogen 24 mg/dL (9-23); Calcium 8.5 mg/dL (8.3-10.6); Calcium (Corrected) 8.7 mg/dL (8.5-10.1); Carbon Dioxide 31.9 mMol/L (20.0-31.0); Chloride 105 mMol/L (98-107); Creatinine (Component) 1.9 mg/dL (0.6-1.3); Estimated Creatinine Clearance 38.9 mL/min (>60); Glucose 128 mg/dL (74-106); Magnesium 2.1 mg/dL (1.6-2.6); Osmolality,Calculated 296 (275-295); Phosphorous 3.1 mg/dL (2.4-5.1); Potassium 4.4 mMol/L (3.4-5.1); Sodium 146 mMol/L (136-145); eGFR 35 See Note
[2025-11-21] MEDS: FLUTICASONE/SALMETEROL 250/50 14 DOSE INH 1 PUFF INH ×2 (06:19→19:42)
--- NOTE | 2025-11-21 08:00 | ESPR_ITS ---
Documentation for date of: 11/21/25 Subjective Subjective Interval history: Today, his BP is 130/90, HR 18. Renal function stable with BUN 24, Cr:1.9 and eGFR 35, UoP of 3.9L Continue IV bumex 1mg bid, Aspirin 81mg po qd, and Metoprolol 25mg po qd. Patient still has SOB. But no chest pain or palpitations. Will continue to monitor. Exam Vital Signs Temp Pulse Resp BP Pulse Ox O2 Del Method O2 Flow Rate 97.3 F 83 18 130/90 H 95 Nasal Cannula 4 11/21/25 12:00 11/21/25 12:00 11/21/25 12:00 11/21/25 12:00 11/21/25 12:00 11/21/25 12:00 11/21/25 12:00 Narrative Exam General: No acute distress, well nourished, AAO x3 Eye: Normal conjunctiva, no scleral icterus HENT: Normocephalic, atraumatic, hearing intact to conversation at normal volume, moist oral mucosa Neck: Supple, non-tender, no JVD, no lymphadenopathy Lungs: Non-labored respirations, symmetric chest rise, Clear to auscultate bilaterally, No wheezing, rhonchi, crackles Heart: Peripheral pulses intact bilaterally, Regular Rate and Rhythm. Abdomen: Soft, non-tender, non-distended, no palpable masses Musculoskeletal: Normal range of motion and strength, No cyanosis or edema, No visible joint swelling Skin: Skin is warm, dry, no rashes or lesions. Psychiatric: Cooperative, appropriate mood and affect, Awake and alert, not agitated Neuro: Cranial nerves II-XII grossly intact. Strength 5/5 throughout. Sensations intact to light touch. Objective Labs 11/21/25 04:15 11/21/25 04:15 Labs: Laboratory Results - last 24 hr 11/21/25 04:15 WBC 5.7 RBC 2.98 L Hgb 9.5 L Hct 30.9 L MCV 104 H MCH 31.9 MCHC 30.7 L RDW Std Deviation 48.9 H Plt Count 126 L Neut % (Auto) 78 Lymph % (Auto) 12 [place] % (Auto) 7 Eos % (Auto) 2 Baso % (Auto) 1 Neut # (Auto) 4.5 Lymph # (Auto) 0.7 L [place] # (Auto) 0.4 Eos # (Auto) 0.1 Baso # (Auto) 0.0 Immature Gran # (Auto) 0.01 H Absolute Nucleated RBC 0.00 Immature Gran % 0 Nucleated RBC % 0 Sodium 146 H Potassium 4.4 Chloride 105 Carbon Dioxide 31.9 H Anion Gap 9 BUN 24 H Creatinine 1.9 H Estim Creat Clear Calc 38.9 L eGFR 35 L BUN/Creatinine Ratio 13 Glucose 128 H Calculated Osmolality 296 H Calcium 8.5 Corrected Calcium 8.7 Phosphorus 3.1 Magnesium 2.1 Albumin 3.8 ABG Interpretation ABG results: 11/16/25 21:41 VBG pH 7.28 L VBG pCO2 56 VBG pO2 30 VBG Base Excess -1 Quality Measures Quality Measures VTE prophylaxis Advance care planning discussed with:: patient and other Assessment & Plan Assessment Current Active Medications: Generic Name Dose Route Start Last Admin Trade Name Freq PRN Reason Stop Dose Admin Acetaminophen 650 mg 11/16/25 21:29 Acetaminophen 325 Mg Tablet PO 12/16/25 21:28 Q6H PRN Fever >101.5 or pain 1-3 Albuterol/Ipratropium 3 ml 11/19/25 10:08 Albuterol/Ipratropium (Duoneb) Rt Lucia 3 Ml Nebu INH 12/17/25 00:59 Q6HRRT PRN wheezing Aspirin 81 mg 11/17/25 09:00 11/21/25 11:01 Aspirin Ec 81 Mg Tabec PO 12/17/25 08:59 81 mg QDAY NANCY Administration Atorvastatin Calcium 40 mg 11/17/25 21:00 11/20/25 20:28 Atorvastatin Calcium 20 Mg Tablet PO 12/17/25 20:59 40 mg HS NANCY Administration Bumetanide 1 mg 11/21/25 09:00 11/21/25 11:31 Bumetanide Inj 0.25 Mg/Ml Vial 4 Ml IVP 12/21/25 08:59 1 mg BID NANCY Administration Dextrose 25 ml 11/16/25 22:23 Dextrose 50%-Water Inj 50 Ml Syringe IV 12/16/25 22:22 Q15MIN PRN BG 50-70 responsive npo pt Dextrose 50 ml 11/16/25 22:23 Dextrose 50%-Water Inj 50 Ml Syringe IV 12/16/25 22:22 Q15MIN PRN BG <50 OR BG <70 & pt unresponsive Folic Acid 1 mg 11/17/25 09:00 11/21/25 10:00 Folic Acid 1 Mg Tablet PO 12/17/25 08:59 1 mg QDAY NANCY Administration Glucagon 1 mg 11/16/25 22:23 Glucagon Inj 1 Mg Vial IM Q15MIN PRN BG <70, and no IV access Heparin Sodium (Porcine) 5,000 unit 11/16/25 21:45 11/21/25 11:02 Heparin Sod Inj 5000 Unit/Ml Vial SC 11/30/25 21:44 5,000 unit Q12H NANCY Administration Azithromycin 500 mg/ Sodium 250 mls @ 250 mls/hr 11/17/25 09:15 11/21/25 10:57 Chloride IV 11/24/25 09:14 250 mls/hr QDAY NANCY Administration Ceftriaxone Sodium/Dextrose 1 gm in 50 mls @ 100 mls/hr 11/19/25 10:39 11/21/25 10:57 Rocephin/D5w 1gm Iv Premix IV 11/26/25 10:38 100 mls/hr QDAY NANCY Administration Insulin Human Lispro 0 unit 11/17/25 07:30 11/21/25 11:30 Insulin Lispro (Admelog) 1 Unit/0.01 Ml Unit SC 12/17/25 07:29 Not Given AC [facility] Protocol Metoprolol Succinate 25 mg 11/17/25 09:00 11/21/25 10:56 Metoprolol Succinate Xl 25 Mg Tabcr PO 12/17/25 08:59 25 mg QDAY NANCY Administration Ondansetron HCl 4 mg 11/16/25 21:29 Ondansetron Inj 2 Mg/Ml Inj 2 Ml IVP 12/16/25 21:28 Q6H PRN NAUSEA OR VOMITING Protocol Fluticasone/Salmeterol 1 puff 11/19/25 10:15 11/21/25 06:19 Fluticasone/Salmeterol 250/50 14 Dose Inh INH 12/19/25 10:14 1 puff BIDRT NANCY Administration Sennosides 1 tab 11/16/25 22:13 Senna/Docusate Sod 1 Tab Tablet PO 12/16/25 22:12 QDAY PRN CONSTIPATION Protocol Sodium Chloride 3 ml 11/16/25 20:39 11/16/25 21:32 Sodium Chloride Rt Lucia 0.9% 3 Ml Nebu INH 12/16/25 20:38 3 ml PRN PRN Administration SOLN Tamsulosin HCl 0.4 mg 11/17/25 09:00 11/21/25 09:00 Tamsulosin Hcl 0.4 Mg Capsule PO 12/17/25 08:59 Not Given QDAY [facility] Vitamin B Complex/Vit C/Folic Acid 1 tab 11/17/25 09:00 11/21/25 10:00 Vitamin B Complex Tablet PO 12/17/25 08:59 1 tab QDAY [facility] Administration Plan 80-year-old male with a history of type 2 diabetes mellitus, hypertension, hyperlipidemia, BPH, HFpEF (EF 50 to 55%, 2022), CKD, lung cancer status post bilateral lobectomies at [facility] who is admitted for further workup of GI bleed. Cardiology consulted for severe shortness of breathe. #Acute Decompensated Heart Failure #Congestive diastolic HFpEF, EF 60-65% #Severe Pulmonary Hypertension (Type II vs Type III) -Patient initially had severe shortness of breathe on admission. -On admission, Troponin: 0.027, BNP: 257 -CXR: COPD with extensive pleural parenchymal scarring throughout the lungs, Pulmonary artery hypertension, No interval pneumonia or pulmonary edema -ECHO (11/16/2025) showed: 1. Left ventricle size is normal and systolic function is normal. Estimated ejection fraction is6 0-65%. There is grade I diastolic dysfunction. 2. Right ventricle chamber size is severely enlarged and systolic function is normal. Estimated RVSP is 70-75mmHg with RAP 8. Possible severe PHTN. 3. Flattening of the ventricular septum in mid to late systole consistent with right ventricular volume overload. 4. There is moderate aortic valve sclerosis with mild stenosis and trace regurgitation. 5. There is mild mitral and pulmonic valve regurgitation. Moderate eccentric tricuspid regurgitation with mild MAC. 6. The left atrium is moderately enlarged. The right atrium is severely enlarged. 7. Dilated IVC with estimated RA pressure 8 mmHg. Plan: -Continue IV bumex 1mg bid, Aspirin 81mg po qd, and Metoprolol 25mg po qd. -After discharge, possible right and left heart cardiac catheterization for assessment of possible primary pulmonary hypertension -Strict I&O -Daily weight -Fluid restriction 1500cc -Low sodium diet #Hyperlipidemia -Continue Atorvastatin 40mg po HS #Hypertension -Continue Metoprolol 25mg po qd #Lower GI bleed, 2/2 external and internal hemorrhoids, s/p banding on 11/19 #Bright red blood per rectum #Symptomatic, blood loss anemia #Microcytic anemia #BPH #Urinary retention #Type 2 diabetes mellitus #CKD stage IV -Management per Primary Hospitalist team Thank you for allowing us to participate in the care of Mr. Ramírez Denton. Cardiology will continue to follow. Assessment and plan discussed with my attending physician Dr. Patel (PGY-1) - Internal medicine resident Attending Provider Attestation/Addendum I reviewed the resident Dr. Violette Patel consultation progress note and agree with the resident findings and plan in the note above and have also edited the documentation to reflect my findings and plan. Bhanu Christian M.D. Interventional Cardiology
[2025-11-21] MEDS: VITAMIN B COMPLEX TABLET 1 TAB PO (10:00)
[2025-11-21] MEDS: FOLIC ACID 1 MG TABLET PO (10:00)
[2025-11-21] MEDS: METOPROLOL SUCCINATE XL 25 MG TABCR PO (10:56)
[2025-11-21] MEDS: cefTRIAXone/D5w 1gm IV premix 1 GM/50 ML BAG IV (10:57)
[2025-11-21] MEDS: AZITHROMYCIN INJ 500 MG in SODIUM CHLORIDE 0.9% 250 ML 250 ML 250 MG IV (10:57)
--- NOTE | 2025-11-21 11:00 | PC.LAC ---
Pt states that a doctor , who claimed to be partnered with [facility], came and saw the pt this AM and told the pt that they no longer want the pt
[2025-11-21] MEDS: ASPIRIN EC 81 MG TABEC PO (11:01)
[2025-11-21] MEDS: HEPARIN SOD INJ 5000 UNIT/ML VIAL SC ×2 (11:02→21:19)
[2025-11-21] MEDS: BUMETANIDE INJ 0.25 MG/ML VIAL 4 ML 1 MG IVP ×2 (11:31→21:18)
--- NOTE | 2025-11-21 13:22 | ESPR_ITS ---
<Statement entered by Avis Manrique MD - 11/25/25 08:01> I reviewed above note and agree with findings and plans. I have also personally examined the patient with medicine team and went over assessment and plan with medical team including compensation intern and resident physician. <Statement entered by Mark Dumont MD - 11/21/25 15:09> Patient was seen and examined at the bedside. No acute overnight events were reported. Patient has stable blood pressure 132/77. Labs showed BUN 24 and creatinine 1.9 relatively unchanged from yesterday. Patient had a positive fluid balance since admission therefore Lasix was discontinued and patient was started on Bumex 1 mg twice daily given echo suggestive of pulmonary artery hypertension. Will continue with antibiotic therapy for covering community- acquired pneumonia. Patient received his oxygen tank today. Will likely keep the patient because he continues to require 4 to 5 L of oxygen and anticipate discharge tomorrow after getting cardiology clearance. Cardiology is on board and aware of the diuretic therapy with Bumex. Patient was agreeable to the plan. Agents' Records Clerk recommended outpatient follow-up for possible left and right heart cath to check pulmonary artery pressure. All labs and orders were reviewed. I discussed and supervised with the compensation intern physician who took care of this patient. I personally saw and examined the patient. I agree with most of the assessment and plan. Disclaimer: Despite multiple revisions, due to the dictation software being used, the document bellow may not be free of grammatical errors including phonetic/typographic errors. However, this does not deter from our commitment to providing health care in the patient's best interest in mind. Plan of care discussed with attending Physician Dr. Ney Dumont MD PGY-3 Documentation for date of: 11/21/25 Subjective Subjective Interval history: (pulled from senior resident attestation) Patient was seen and examined at the bedside. No acute overnight events were reported. Patient has stable blood pressure 132/77. Labs showed BUN 24 and creatinine 1.9 relatively unchanged from yesterday. Patient had a positive fluid balance since admission therefore Lasix was discontinued and patient was started on Bumex 1 mg twice daily given echo suggestive of pulmonary artery hypertension. Will continue with antibiotic therapy for covering community- acquired pneumonia. Patient received his oxygen tank today. Will likely keep the patient because he continues to require 4 to 5 L of oxygen and anticipate discharge tomorrow after getting cardiology clearance. Cardiology is on board and aware of the diuretic therapy with Bumex. Patient was agreeable to the plan. Agents' Records Clerk recommended outpatient follow-up for possible left and right heart cath to check pulmonary artery pressure. All labs and orders were reviewed. Exam Vital Signs Temp Pulse Resp BP Pulse Ox O2 Del Method O2 Flow Rate 97.0 F 89 19 134/79 H 93 L Nasal Cannula 4 11/21/25 08:00 11/21/25 11:31 11/21/25 08:00 11/21/25 11:31 11/21/25 08:00 11/21/25 08:00 11/21/25 08:00 Narrative Exam General: AOx3, no acute distress, able to speak full sentences HEENT: NC/AT, mucous membranes moist, bilateral sclera anicteric Cardiovascular: regular rate and rhythm, S1/S2 present, no murmurs appreciated Pulmonary: clear to auscultation bilaterally, no rales/rhonchi/wheezes Abdominal: soft, non-tender, non-distended, no rebound/guarding, normal bowel sounds present Musculoskeletal: normal ROM, no peripheral edema Skin: warm and dry, intact, no rashes Neuro: CN II-XII intact, no focal deficits Objective Labs 11/21/25 04:15 11/21/25 04:15 Labs: Laboratory Results - last 24 hr 11/21/25 04:15 WBC 5.7 RBC 2.98 L Hgb 9.5 L Hct 30.9 L MCV 104 H MCH 31.9 MCHC 30.7 L RDW Std Deviation 48.9 H Plt Count 126 L Neut % (Auto) 78 Lymph % (Auto) 12 [place] % (Auto) 7 Eos % (Auto) 2 Baso % (Auto) 1 Neut # (Auto) 4.5 Lymph # (Auto) 0.7 L [place] # (Auto) 0.4 Eos # (Auto) 0.1 Baso # (Auto) 0.0 Immature Gran # (Auto) 0.01 H Absolute Nucleated RBC 0.00 Immature Gran % 0 Nucleated RBC % 0 Sodium 146 H Potassium 4.4 Chloride 105 Carbon Dioxide 31.9 H Anion Gap 9 BUN 24 H Creatinine 1.9 H Estim Creat Clear Calc 38.9 L eGFR 35 L BUN/Creatinine Ratio 13 Glucose 128 H Calculated Osmolality 296 H Calcium 8.5 Corrected Calcium 8.7 Phosphorus 3.1 Magnesium 2.1 Albumin 3.8 ABG Interpretation ABG results: 11/16/25 21:41 VBG pH 7.28 L VBG pCO2 56 VBG pO2 30 VBG Base Excess -1 Quality Measures Quality Measures VTE prophylaxis Advance care planning discussed with:: other Assessment & Plan Assessment Current Active Medications: Generic Name Dose Route Start Last Admin Trade Name Vladimir PRN Reason Stop Dose Admin Acetaminophen 650 mg 11/16/25 21:29 Acetaminophen 325 Mg Tablet PO 12/16/25 21:28 Q6H PRN Fever >101.5 or pain 1-3 Albuterol/Ipratropium 3 ml 11/19/25 10:08 Albuterol/Ipratropium (Duoneb) Rt Lucia 3 Ml Nebu INH 12/17/25 00:59 Q6HRRT PRN wheezing Aspirin 81 mg 11/17/25 09:00 11/21/25 11:01 Aspirin Ec 81 Mg Tabec PO 12/17/25 08:59 81 mg QDAY NANCY Administration Atorvastatin Calcium 40 mg 11/17/25 21:00 11/20/25 20:28 Atorvastatin Calcium 20 Mg Tablet PO 12/17/25 20:59 40 mg HS NANCY Administration Bumetanide 1 mg 11/21/25 09:00 11/21/25 11:31 Bumetanide Inj 0.25 Mg/Ml Vial 4 Ml IVP 12/21/25 08:59 1 mg BID NANCY Administration Dextrose 25 ml 11/16/25 22:23 Dextrose 50%-Water Inj 50 Ml Syringe IV 12/16/25 22:22 Q15MIN PRN BG 50-70 responsive npo pt Dextrose 50 ml 11/16/25 22:23 Dextrose 50%-Water Inj 50 Ml Syringe IV 12/16/25 22:22 Q15MIN PRN BG <50 OR BG <70 & pt unresponsive Folic Acid 1 mg 11/17/25 09:00 11/21/25 10:00 Folic Acid 1 Mg Tablet PO 12/17/25 08:59 1 mg QDAY NANCY Administration Glucagon 1 mg 11/16/25 22:23 Glucagon Inj 1 Mg Vial IM Q15MIN PRN BG <70, and no IV access Heparin Sodium (Porcine) 5,000 unit 11/16/25 21:45 11/21/25 11:02 Heparin Sod Inj 5000 Unit/Ml Vial SC 11/30/25 21:44 5,000 unit Q12H NANCY Administration Azithromycin 500 mg/ Sodium 250 mls @ 250 mls/hr 11/17/25 09:15 11/21/25 10:57 Chloride IV 11/24/25 09:14 250 mls/hr QDAY NANCY Administration Ceftriaxone Sodium/Dextrose 1 gm in 50 mls @ 100 mls/hr 11/19/25 10:39 11/21/25 10:57 Rocephin/D5w 1gm Iv Premix IV 11/26/25 10:38 100 mls/hr QDAY NANCY Administration Insulin Human Lispro 0 unit 11/17/25 07:30 11/21/25 11:30 Insulin Lispro (Admelog) 1 Unit/0.01 Ml Unit SC 12/17/25 07:29 Not Given AC [facility] Protocol Metoprolol Succinate 25 mg 11/17/25 09:00 11/21/25 10:56 Metoprolol Succinate Xl 25 Mg Tabcr PO 12/17/25 08:59 25 mg QDAY NANCY Administration Ondansetron HCl 4 mg 11/16/25 21:29 Ondansetron Inj 2 Mg/Ml Inj 2 Ml IVP 12/16/25 21:28 Q6H PRN NAUSEA OR VOMITING Protocol Fluticasone/Salmeterol 1 puff 11/19/25 10:15 11/21/25 06:19 Fluticasone/Salmeterol 250/50 14 Dose Inh INH 12/19/25 10:14 1 puff BIDRT NANCY Administration Sennosides 1 tab 11/16/25 22:13 Senna/Docusate Sod 1 Tab Tablet PO 12/16/25 22:12 QDAY PRN CONSTIPATION Protocol Sodium Chloride 3 ml 11/16/25 20:39 11/16/25 21:32 Sodium Chloride Rt Lucia 0.9% 3 Ml Nebu INH 12/16/25 20:38 3 ml PRN PRN Administration SOLN Tamsulosin HCl 0.4 mg 11/17/25 09:00 11/21/25 09:00 Tamsulosin Hcl 0.4 Mg Capsule PO 12/17/25 08:59 Not Given QDAY NANCY Vitamin B Complex/Vit C/Folic Acid 1 tab 11/17/25 09:00 11/21/25 10:00 Vitamin B Complex Tablet PO 12/17/25 08:59 1 tab QDAY NANCY Administration Plan 80-year-old male with a history of type 2 diabetes mellitus, hypertension, hyperlipidemia, BPH, HFpEF (EF 50 to 55%, 2022), CKD, lung cancer status post bilateral lobectomies at [facility] who is admitted for further workup of GI bleed. #Lower GI bleed, 2/2 external and internal hemorrhoids, s/p banding on 11/19 #Bright red blood per rectum #Symptomatic, blood loss anemia #Microcytic anemia Endorses having had 3-4 bright red blood bloody bowel movements last month with a corresponding drop in hemoglobin from 14 to 10. Experiencing associated dyspnea upon exertion and shortness of breath and denies any cough, sore throat, sick contacts. Favor GI bleed versus pneumonia versus COPD exacerbation. Dx: -11/18 EGD and colonoscopy scheduled, showed normal esophagus with some erythema of antrum mucosa and duodenum top-coto and showed external and internal hemorrhoids which were banded bottom-coto Rx: -GI consulted, appreciate recommendations -GI recommends outpatient air-contrast barium enema, which will be mentioned in the discharge instructions -Trend hemoglobin and transfuse if hemoglobin <7 -B12 and folate supplementation -Follow-up homocystine and methylmalonic acid levels #Acute hypoxic respiratory failure 2/2 #CHF exacerbation vs. community acquired pneumonia versus COPD exacerbation 11/16 CXR showed extensive pleural parenchymal scarring throughout the lungs as well as pulmonary hypertension Will continue to monitor oxygen levels but favor CHF exacerbation and volume overloaded status as primary contributor of ongoing increased oxygen demand Dx: -Repeat CXR ordered, showed increasing interstitial infiltrate in the right lower lobe Rx: ? DuoNebs every 6 hours scheduled ? DuoNebs every 2 hours as needed ? Azithromycin 500 mg IV daily [11/16--] ? Rocephin 1 g IV daily [11/19--] ? Fluticasone/salmeterol 1 puff twice daily ? Home oxygen tank already obtained #BPH #Urinary retention CT A/P on 11/16 shows transverse prostate of 4.5 cm. ? Tamsulosin 0.4 mg daily ? Bladder scans PRN ? Follow-up outpatient #HFpEF (EF 60-65%) #Pulmonary hypertension with right ventricular dilation Not in acute exacerbation. Follows Dr. Robbins outpatient. Recent echo this visit showed marked right ventricular hypertrophy, likely 2/2 significant scarring of the lungs i/s/o lung cancer s/p bilateral lobectomies Dx: -11/16/25 echo ordered, showed EF 60-65%, enlarged RV w/ RVSP 70-75 mmHg, RAP 8, possible severe PHTN, and dilated IVC Rx: ? Cardiology consulted (Dr. Robbins), appreciate recommendations ? Metoprolol 25 mg daily ? Bumex 1 mg twice daily (due to pulmonary artery hypertension) ? Aspirin 81 mg daily ? Keep K >4, magnesium >2 ? Cardiology recommends outpatient follow-up for possible left and right heart catheterization to check pulmonary artery pressure #Type 2 diabetes mellitus A1c 6.7% ? SSI ? Hypoglycemia protocol in place ? Consistent carb diet #CKD stage IV CT A/P showing renal scarring. Follows Dr. Ruvalcaba outpatient. ? Avoid nephrotoxic drugs when possible, renally dose medication ? Continue outpatient follow-up #Hyperlipidemia ? Atorvastatin 40 mg at bedtime #Hypertension ? Metoprolol 25 mg daily Hospital management: Disposition: Med Surg, anticipate discharge within 1-2 days Diet: Cardiac Lines: PIV DVT prophylaxis: heparin SC Garcia: N/A, in and out caths PRN CODE STATUS: Full Code ----- Plan discussed with attending physician Dr. Hilaria Brewster, DO PGY-1 Internal Medicine
--- NOTE | 2025-11-21 15:33 | PC.SS ---
Rounding note: IV tristinquinten, has home oxygen tanks delivered at bedside. Possible discharge 11/22/25. Discharging home when medically clear.
--- NOTE | 2025-11-21 16:33 | PD.IMPROG ---
Documentation for date of: 11/21/25 Subjective Subjective Interval history: Patient evaluated hemoglobin hematocrit 9.5 and 30.9 Current issues are mostly cardiac Exam Vital Signs Temp Pulse Resp BP Pulse Ox O2 Del Method O2 Flow Rate 97.3 F 83 18 130/90 H 95 Nasal Cannula 4 11/21/25 12:00 11/21/25 12:00 11/21/25 12:00 11/21/25 12:00 11/21/25 12:00 11/21/25 12:00 11/21/25 12:00 Objective Labs 11/21/25 04:15 11/21/25 04:15 Labs: Laboratory Results - last 24 hr 11/21/25 04:15 WBC 5.7 RBC 2.98 L Hgb 9.5 L Hct 30.9 L MCV 104 H MCH 31.9 MCHC 30.7 L RDW Std Deviation 48.9 H Plt Count 126 L Neut % (Auto) 78 Lymph % (Auto) 12 [place] % (Auto) 7 Eos % (Auto) 2 Baso % (Auto) 1 Neut # (Auto) 4.5 Lymph # (Auto) 0.7 L [place] # (Auto) 0.4 Eos # (Auto) 0.1 Baso # (Auto) 0.0 Immature Gran # (Auto) 0.01 H Absolute Nucleated RBC 0.00 Immature Gran % 0 Nucleated RBC % 0 Sodium 146 H Potassium 4.4 Chloride 105 Carbon Dioxide 31.9 H Anion Gap 9 BUN 24 H Creatinine 1.9 H Estim Creat Clear Calc 38.9 L eGFR 35 L BUN/Creatinine Ratio 13 Glucose 128 H Calculated Osmolality 296 H Calcium 8.5 Corrected Calcium 8.7 Phosphorus 3.1 Magnesium 2.1 Albumin 3.8 Impressions Impression: GI hemorrhage requiring band ligation Shortness of breath improving Continue current management ABG Interpretation ABG results: 11/16/25 21:41 VBG pH 7.28 L VBG pCO2 56 VBG pO2 30 VBG Base Excess -1 Assessment & Plan A&P Narrative # Anemia blood loss # Hematochezia Plan Clear liquid diet GoLytely prep If 1 gallon is not enough start the second gallon Consent obtained for fiberoptic colonoscopy as well as fiberoptic upper endoscopy with biopsy and therapeutic intervention if needed under intravenous moderate sedation Once patient is clear n.p.o. Both upper endoscopy and colonoscopy tentatively scheduled for tomorrow Other medical problems include Diabetes mellitus type 2 Hyperlipidemia Polycythemia Lung carcinoma status post bilateral lobectomy 20 years ago at [facility] CKD stage III being followed by court reporter Dr. Aleman Thank you very much for the opportunity to participate in the care of this patient Time Spent With Patient Time: Total time spent is greater than 50% in coordination of care (as documented) at patient's floor/unit and/or counseling patient:
[2025-11-21] MEDS: ATORVASTATIN CALCIUM 20 MG TABLET 40 MG PO (21:19)
[2025-11-22] VITALS (12 sets, daily range): BP systolic 126–170; BP diastolic 70–84; PULSE 78–120; RESP 17–24; TEMP 36.4–37; O2SAT 94–97
[2025-11-22 05:39] LABS: Basophils # (Auto) 0.0 Thou/mm3 (0.0-0.2); Basophils % (Auto) 1 % (0-2.5); Eosinophils # (Auto) 0.1 Thou/mm3 (0.0-0.5); Eosinophils % (Auto) 2 % (0-10); Hematocrit 31.2 % (41.0-53.0); Hemoglobin 9.6 g/dL (13.5-16.0); Immature Granulocytes Auto 0.01 Thou/mm3 (0.00-0.00); Lymphocytes # (Auto) 0.7 Thou/mm3 (1.0-4.8); Lymphocytes % (Auto) 12 % (10-50); Mean Corpuscular HGB Conc 30.8 g/dl (31.0-37.0); Mean Corpuscular Hemoglobin 32.0 pg (25.0-35.0); Mean Corpuscular Volume 104 fL (80-100); Monocytes # (Auto) 0.4 Thou/mm3 (0.0-0.8); Monocytes % (Auto) 8 % (0-12); Neutrophils # (Auto) 4.6 Thou/mm3 (1.8-7.7); Neutrophils % (Auto) 78 % (37-80); Nucleated Red Blood Cell # 0.00 Thou/mm3 (0.00-0.00); Nucleated Red Blood Cell % 0 /100 WBC (0); Platelet Count 143 Thou/mm3 (140-440); RDW Standard Deviation 48.8 fL (35.1-43.9); Red Blood Count 3.00 Miln/mm3 (4.50-5.90); White Blood Count 5.9 Thou/mm3 (3.8-10.6)
[2025-11-22 06:04] LABS: Albumin, Serum 3.8 gm/dL (3.4-4.8); Anion Gap 8 (7-16); BUN/Creatinine Ratio 13 Ratio (12-20); Blood Urea Nitrogen 25 mg/dL (9-23); Calcium 8.5 mg/dL (8.3-10.6); Calcium (Corrected) 8.7 mg/dL (8.5-10.1); Carbon Dioxide 32.3 mMol/L (20.0-31.0); Chloride 106 mMol/L (98-107); Creatinine (Component) 2.0 mg/dL (0.6-1.3); Estimated Creatinine Clearance 36.9 mL/min (>60); Glucose 126 mg/dL (74-106); Magnesium 1.8 mg/dL (1.6-2.6); Osmolality,Calculated 296 (275-295); Phosphorous 3.1 mg/dL (2.4-5.1); Potassium 4.2 mMol/L (3.4-5.1); Sodium 146 mMol/L (136-145); eGFR 33 See Note
--- NOTE | 2025-11-22 08:00 | ESPR_ITS ---
Documentation for date of: 11/22/25 Subjective Subjective Interval history: HR of 130/70 and UoP of 1.5L. Continue IV bumex 1mg bid, Aspirin 81mg po qd, and Metoprolol 25mg po qd. Patient still has SOB. Given IV acetazolamide [id number]. No chest pain or palpitations. On discharge, recommend adding PO bumex 1mg bid. on top of other medication he was using, including aspirin and metoprolol Exam Vital Signs Temp Pulse Resp BP Pulse Ox O2 Del Method O2 Flow Rate 97.7 F 78 19 170/76 H 95 Nasal Cannula 4 11/22/25 16:00 11/22/25 16:00 11/22/25 16:00 11/22/25 16:00 11/22/25 16:00 11/22/25 16:00 11/22/25 16:00 Narrative Exam General: No acute distress, well nourished, AAO x3 Eye: Normal conjunctiva, no scleral icterus HENT: Normocephalic, atraumatic, hearing intact to conversation at normal volume, moist oral mucosa Neck: Supple, non-tender, no JVD, no lymphadenopathy Lungs: Non-labored respirations, symmetric chest rise, Clear to auscultate bilaterally, No wheezing, rhonchi, crackles Heart: Peripheral pulses intact bilaterally, Regular Rate and Rhythm. Abdomen: Soft, non-tender, non-distended, no palpable masses Musculoskeletal: Normal range of motion and strength, No cyanosis or edema, No visible joint swelling Skin: Skin is warm, dry, no rashes or lesions. Psychiatric: Cooperative, appropriate mood and affect, Awake and alert, not agitated Neuro: Cranial nerves II-XII grossly intact. Strength 5/5 throughout. Sensations intact to light touch. Objective Labs 11/22/25 04:40 11/22/25 04:40 Labs: Laboratory Results - last 24 hr 11/22/25 11/22/25 04:40 04:40 WBC 5.9 RBC 3.00 L Hgb 9.6 L Hct 31.2 L MCV 104 H MCH 32.0 MCHC 30.8 L RDW Std Deviation 48.8 H Plt Count 143 Neut % (Auto) 78 Lymph % (Auto) 12 [place] % (Auto) 8 Eos % (Auto) 2 Baso % (Auto) 1 Neut # (Auto) 4.6 Lymph # (Auto) 0.7 L [place] # (Auto) 0.4 Eos # (Auto) 0.1 Baso # (Auto) 0.0 Immature Gran # (Auto) 0.01 H Absolute Nucleated RBC 0.00 Immature Gran % 0 Nucleated RBC % 0 Sodium 146 H Potassium 4.2 Chloride 106 Carbon Dioxide 32.3 H Anion Gap 8 BUN 25 H Creatinine 2.0 H Estim Creat Clear Calc 36.9 L eGFR 33 L BUN/Creatinine Ratio 13 Glucose 126 H Calculated Osmolality 296 H Calcium 8.5 Corrected Calcium 8.7 Phosphorus 3.1 Magnesium 1.8 Albumin 3.8 Procalcitonin Cancelled 0.17 ABG Interpretation ABG results: 11/16/25 21:41 VBG pH 7.28 L VBG pCO2 56 VBG pO2 30 VBG Base Excess -1 Quality Measures Quality Measures VTE prophylaxis Advance care planning discussed with:: patient and other Assessment & Plan Assessment Current Active Medications: Generic Name Dose Route Start Last Admin Trade Name Freq PRN Reason Stop Dose Admin Acetaminophen 650 mg 11/16/25 21:29 Acetaminophen 325 Mg Tablet PO 12/16/25 21:28 Q6H PRN Fever >101.5 or pain 1-3 Albuterol/Ipratropium 3 ml 11/19/25 10:08 Albuterol/Ipratropium (Duoneb) Rt Lucia 3 Ml Nebu INH 12/17/25 00:59 Q6HRRT PRN wheezing Aspirin 81 mg 11/17/25 09:00 11/22/25 08:35 Aspirin Ec 81 Mg Tabec PO 12/17/25 08:59 81 mg QDAY NANCY Administration Atorvastatin Calcium 40 mg 11/17/25 21:00 11/21/25 21:19 Atorvastatin Calcium 20 Mg Tablet PO 12/17/25 20:59 40 mg HS NANCY Administration Bumetanide 1 mg 11/22/25 21:00 Bumetanide Inj 0.25 Mg/Ml Vial 4 Ml IVP 12/22/25 20:59 BID NANCY Dextrose 25 ml 11/16/25 22:23 Dextrose 50%-Water Inj 50 Ml Syringe IV 12/16/25 22:22 Q15MIN PRN BG 50-70 responsive npo pt Dextrose 50 ml 11/16/25 22:23 Dextrose 50%-Water Inj 50 Ml Syringe IV 12/16/25 22:22 Q15MIN PRN BG <50 OR BG <70 & pt unresponsive Folic Acid 1 mg 11/17/25 09:00 11/22/25 08:36 Folic Acid 1 Mg Tablet PO 12/17/25 08:59 1 mg QDAY NANCY Administration Glucagon 1 mg 11/16/25 22:23 Glucagon Inj 1 Mg Vial IM Q15MIN PRN BG <70, and no IV access Heparin Sodium (Porcine) 5,000 unit 11/16/25 21:45 11/22/25 10:51 Heparin Sod Inj 5000 Unit/Ml Vial SC 11/30/25 21:44 5,000 unit Q12H NANCY Administration Azithromycin 500 mg/ Sodium 250 mls @ 250 mls/hr 11/17/25 09:15 11/22/25 10:50 Chloride IV 11/24/25 09:14 250 mls/hr QDAY NANCY Administration Ceftriaxone Sodium/Dextrose 1 gm in 50 mls @ 100 mls/hr 11/19/25 10:39 11/22/25 08:36 Rocephin/D5w 1gm Iv Premix IV 11/26/25 10:38 100 mls/hr QDAY NANCY Administration Insulin Human Lispro 0 unit 11/17/25 07:30 11/22/25 12:29 Insulin Lispro (Admelog) 1 Unit/0.01 Ml Unit SC 12/17/25 07:29 Not Given AC NANCY Protocol Metoprolol Succinate 25 mg 11/17/25 09:00 11/22/25 08:35 Metoprolol Succinate Xl 25 Mg Tabcr PO 12/17/25 08:59 25 mg QDAY NANCY Administration Ondansetron HCl 4 mg 11/16/25 21:29 Ondansetron Inj 2 Mg/Ml Inj 2 Ml IVP 12/16/25 21:28 Q6H PRN NAUSEA OR VOMITING Protocol Fluticasone/Salmeterol 1 puff 11/19/25 10:15 11/22/25 07:54 Fluticasone/Salmeterol 250/50 14 Dose Inh INH 12/19/25 10:14 Not Given BIDRT NANCY Sennosides 1 tab 11/16/25 22:13 Senna/Docusate Sod 1 Tab Tablet PO 12/16/25 22:12 QDAY PRN CONSTIPATION Protocol Sodium Chloride 3 ml 11/16/25 20:39 11/16/25 21:32 Sodium Chloride Rt Lucia 0.9% 3 Ml Nebu INH 12/16/25 20:38 3 ml PRN PRN Administration SOLN Tamsulosin HCl 0.4 mg 11/17/25 09:00 11/22/25 08:35 Tamsulosin Hcl 0.4 Mg Capsule PO 12/17/25 08:59 0.4 mg QDAY NANCY Administration Vitamin B Complex/Vit C/Folic Acid 1 tab 11/17/25 09:00 11/22/25 08:35 Vitamin B Complex Tablet PO 12/17/25 08:59 1 tab QDAY NANCY Administration Plan 80-year-old male with a history of type 2 diabetes mellitus, hypertension, hyperlipidemia, BPH, HFpEF (EF 50 to 55%, 2022), CKD, lung cancer status post bilateral lobectomies at [facility] who is admitted for further workup of GI bleed. Cardiology consulted for severe shortness of breathe. #Acute Decompensated Heart Failure #Congestive diastolic HFpEF, EF 60-65% #Severe Pulmonary Hypertension (Type II vs Type III) -Patient initially had severe shortness of breathe on admission. -On admission, Troponin: 0.027, BNP: 257 -CXR: COPD with extensive pleural parenchymal scarring throughout the lungs, Pulmonary artery hypertension, No interval pneumonia or pulmonary edema -ECHO (11/16/2025) showed: 1. Left ventricle size is normal and systolic function is normal. Estimated ejection fraction is6 0-65%. There is grade I diastolic dysfunction. 2. Right ventricle chamber size is severely enlarged and systolic function is normal. Estimated RVSP is 70-75mmHg with RAP 8. Possible severe PHTN. 3. Flattening of the ventricular septum in mid to late systole consistent with right ventricular volume overload. 4. There is moderate aortic valve sclerosis with mild stenosis and trace regurgitation. 5. There is mild mitral and pulmonic valve regurgitation. Moderate eccentric tricuspid regurgitation with mild MAC. 6. The left atrium is moderately enlarged. The right atrium is severely enlarged. 7. Dilated IVC with estimated RA pressure 8 mmHg. Plan: -Continue IV bumex 1mg bid, Aspirin 81mg po qd, and Metoprolol 25mg po qd. -After discharge, possible right and left heart cardiac catheterization for assessment of possible primary pulmonary hypertension -Strict I&O -Daily weight -Fluid restriction 1500cc -Low sodium diet #Hyperlipidemia -Continue Atorvastatin 40mg po HS #Hypertension -Continue Metoprolol 25mg po qd #Lower GI bleed, 2/2 external and internal hemorrhoids, s/p banding on 11/19 #Bright red blood per rectum #Symptomatic, blood loss anemia #Microcytic anemia #BPH #Urinary retention #Type 2 diabetes mellitus #CKD stage IV -Management per Primary Hospitalist team Thank you for allowing us to participate in the care of Mr. Ramírez Denton. Cardiology will continue to follow. Assessment and plan discussed with my attending physician Dr. Patel (PGY-1) - Internal medicine resident Attending Provider Attestation/Addendum I have personally seen and examined the patient separately on the above date of service and discussed the plan of care with the resident. I reviewed the resident Dr. Pretty Wolf consultation progress note and agree with the resident findings and plan in the note above and have also edited the documentation to reflect my findings and plan. Bhanu Christian M.D. Interventional Cardiology
[2025-11-22] MEDS: TAMSULOSIN HCL 0.4 MG CAPSULE PO (08:35)
[2025-11-22] MEDS: METOPROLOL SUCCINATE XL 25 MG TABCR PO (08:35)
[2025-11-22] MEDS: ASPIRIN EC 81 MG TABEC PO (08:35)
[2025-11-22] MEDS: VITAMIN B COMPLEX TABLET 1 TAB PO (08:35)
[2025-11-22] MEDS: cefTRIAXone/D5w 1gm IV premix 1 GM/50 ML BAG IV (08:36)
[2025-11-22] MEDS: FOLIC ACID 1 MG TABLET PO (08:36)
[2025-11-22] MEDS: BUMETANIDE INJ 0.25 MG/ML VIAL 4 ML 1 MG IVP ×2 (08:36→21:00)
[2025-11-22] MEDS: AZITHROMYCIN INJ 500 MG in SODIUM CHLORIDE 0.9% 250 ML 250 ML 250 MG IV (10:50)
[2025-11-22] MEDS: HEPARIN SOD INJ 5000 UNIT/ML VIAL SC ×2 (10:51→20:58)
--- NOTE | 2025-11-22 12:41 | PD.IMPROG ---
Documentation for date of: 11/22/25 Subjective Subjective Interval history: Patient evaluated no further bleeding Exam Vital Signs Temp Pulse Resp BP Pulse Ox O2 Del Method O2 Flow Rate 97.5 F 102 H 20 130/70 94 L Nasal Cannula 4 11/22/25 12:00 11/22/25 12:00 11/22/25 12:00 11/22/25 12:00 11/22/25 12:00 11/22/25 12:00 11/22/25 12:00 Objective Labs 11/22/25 04:40 11/22/25 04:40 Labs: Laboratory Results - last 24 hr 11/22/25 04:40 WBC 5.9 RBC 3.00 L Hgb 9.6 L Hct 31.2 L MCV 104 H MCH 32.0 MCHC 30.8 L RDW Std Deviation 48.8 H Plt Count 143 Neut % (Auto) 78 Lymph % (Auto) 12 [place] % (Auto) 8 Eos % (Auto) 2 Baso % (Auto) 1 Neut # (Auto) 4.6 Lymph # (Auto) 0.7 L [place] # (Auto) 0.4 Eos # (Auto) 0.1 Baso # (Auto) 0.0 Immature Gran # (Auto) 0.01 H Absolute Nucleated RBC 0.00 Immature Gran % 0 Nucleated RBC % 0 Sodium 146 H Potassium 4.2 Chloride 106 Carbon Dioxide 32.3 H Anion Gap 8 BUN 25 H Creatinine 2.0 H Estim Creat Clear Calc 36.9 L eGFR 33 L BUN/Creatinine Ratio 13 Glucose 126 H Calculated Osmolality 296 H Calcium 8.5 Corrected Calcium 8.7 Phosphorus 3.1 Magnesium 1.8 Albumin 3.8 Impressions Impression: Lower GI bleed secondary to internal hemorrhoid requiring banding Congestive heart failure Improving shortness of breath ABG Interpretation ABG results: 11/16/25 21:41 VBG pH 7.28 L VBG pCO2 56 VBG pO2 30 VBG Base Excess -1 Assessment & Plan A&P Narrative # Anemia blood loss # Hematochezia Plan Clear liquid diet GoLytely prep If 1 gallon is not enough start the second gallon Consent obtained for fiberoptic colonoscopy as well as fiberoptic upper endoscopy with biopsy and therapeutic intervention if needed under intravenous moderate sedation Once patient is clear n.p.o. Both upper endoscopy and colonoscopy tentatively scheduled for tomorrow Other medical problems include Diabetes mellitus type 2 Hyperlipidemia Polycythemia Lung carcinoma status post bilateral lobectomy 20 years ago at [facility] CKD stage III being followed by shop and alteration tailor Dr. Aleman Thank you very much for the opportunity to participate in the care of this patient Time Spent With Patient Time: Total time spent is greater than 50% in coordination of care (as documented) at patient's floor/unit and/or counseling patient:
--- NOTE | 2025-11-22 13:30 | ESPR_ITS ---
<Statement entered by Mikaela Medeiros MD - 11/23/25 15:59> Patient was seen and examined at bedside. I agree in the assessment and plan on this note, - Patient's plan and care discussed with my attending, Dr. Miley Medeiros MD Internal Medicine PGY-3 Documentation for date of: 11/22/25 Subjective Subjective Interval history: No acute overnight events. Patient seen and assessed at bedside. Complains of shortness of breath but saturated well on room air temporarily, will keep on 4L NC for now. Will continue to wean oxygen as tolerated, continue Duonebs. Received 3L yesterday despite fluid restriction 1500 and has been overall net positive, will continue diuresis. Pro-winsome negative, low suspicion for PNA. Spoke with cardiology, patient is medically stable for discharge from cardiology standpoint. Recommend discharging with Bumex 1 mg BID and and metoprolol 25 mg daily. Will re-evaluate fluid status tomorrow. Exam Vital Signs Temp Pulse Resp BP Pulse Ox O2 Del Method O2 Flow Rate 97.5 F 102 H 20 130/70 94 L Nasal Cannula 4 11/22/25 12:00 11/22/25 12:00 11/22/25 12:00 11/22/25 12:00 11/22/25 12:00 11/22/25 12:00 11/22/25 12:00 Narrative Exam General: AOx3, no acute distress, able to speak full sentences. on 4L NC. HEENT: NC/AT, mucous membranes moist, bilateral sclera anicteric Cardiovascular: regular rate and rhythm, S1/S2 present, no murmurs appreciated Pulmonary: clear to auscultation bilaterally, no rales/rhonchi/wheezes Abdominal: soft, non-tender, non-distended, no rebound/guarding, normal bowel sounds present Musculoskeletal: normal ROM, no peripheral edema Skin: warm and dry, intact, no rashes Neuro: CN II-XII intact, no focal deficits Objective Labs 11/23/25 05:11 11/23/25 05:11 Labs: Laboratory Results - last 24 hr 11/22/25 04:40 WBC 5.9 RBC 3.00 L Hgb 9.6 L Hct 31.2 L MCV 104 H MCH 32.0 MCHC 30.8 L RDW Std Deviation 48.8 H Plt Count 143 Neut % (Auto) 78 Lymph % (Auto) 12 [place] % (Auto) 8 Eos % (Auto) 2 Baso % (Auto) 1 Neut # (Auto) 4.6 Lymph # (Auto) 0.7 L [place] # (Auto) 0.4 Eos # (Auto) 0.1 Baso # (Auto) 0.0 Immature Gran # (Auto) 0.01 H Absolute Nucleated RBC 0.00 Immature Gran % 0 Nucleated RBC % 0 Sodium 146 H Potassium 4.2 Chloride 106 Carbon Dioxide 32.3 H Anion Gap 8 BUN 25 H Creatinine 2.0 H Estim Creat Clear Calc 36.9 L eGFR 33 L BUN/Creatinine Ratio 13 Glucose 126 H Calculated Osmolality 296 H Calcium 8.5 Corrected Calcium 8.7 Phosphorus 3.1 Magnesium 1.8 Albumin 3.8 Procalcitonin Cancelled ABG Interpretation ABG results: 11/16/25 21:41 VBG pH 7.28 L VBG pCO2 56 VBG pO2 30 VBG Base Excess -1 Quality Measures Quality Measures VTE prophylaxis Advance care planning discussed with:: patient Assessment & Plan Assessment Current Active Medications: Generic Name Dose Route Start Last Admin Trade Name Freq PRN Reason Stop Dose Admin Acetaminophen 650 mg 11/16/25 21:29 Acetaminophen 325 Mg Tablet PO 12/16/25 21:28 Q6H PRN Fever >101.5 or pain 1-3 Albuterol/Ipratropium 3 ml 11/19/25 10:08 Albuterol/Ipratropium (Duoneb) Rt Lucia 3 Ml Nebu INH 12/17/25 00:59 Q6HRRT PRN wheezing Aspirin 81 mg 11/17/25 09:00 11/22/25 08:35 Aspirin Ec 81 Mg Tabec PO 12/17/25 08:59 81 mg QDAY NANCY Administration Atorvastatin Calcium 40 mg 11/17/25 21:00 11/21/25 21:19 Atorvastatin Calcium 20 Mg Tablet PO 12/17/25 20:59 40 mg HS NANCY Administration Bumetanide 1 mg 11/22/25 21:00 Bumetanide Inj 0.25 Mg/Ml Vial 4 Ml IVP 12/22/25 20:59 BID NANCY Dextrose 25 ml 11/16/25 22:23 Dextrose 50%-Water Inj 50 Ml Syringe IV 12/16/25 22:22 Q15MIN PRN BG 50-70 responsive npo pt Dextrose 50 ml 11/16/25 22:23 Dextrose 50%-Water Inj 50 Ml Syringe IV 12/16/25 22:22 Q15MIN PRN BG <50 OR BG <70 & pt unresponsive Folic Acid 1 mg 11/17/25 09:00 11/22/25 08:36 Folic Acid 1 Mg Tablet PO 12/17/25 08:59 1 mg QDAY NANCY Administration Glucagon 1 mg 11/16/25 22:23 Glucagon Inj 1 Mg Vial IM Q15MIN PRN BG <70, and no IV access Heparin Sodium (Porcine) 5,000 unit 11/16/25 21:45 11/22/25 10:51 Heparin Sod Inj 5000 Unit/Ml Vial SC 11/30/25 21:44 5,000 unit Q12H NANCY Administration Azithromycin 500 mg/ Sodium 250 mls @ 250 mls/hr 11/17/25 09:15 11/22/25 10:50 Chloride IV 11/24/25 09:14 250 mls/hr QDAY NANCY Administration Ceftriaxone Sodium/Dextrose 1 gm in 50 mls @ 100 mls/hr 11/19/25 10:39 11/22/25 08:36 Rocephin/D5w 1gm Iv Premix IV 11/26/25 10:38 100 mls/hr QDAY NANCY Administration Insulin Human Lispro 0 unit 11/17/25 07:30 11/22/25 12:29 Insulin Lispro (Admelog) 1 Unit/0.01 Ml Unit SC 12/17/25 07:29 Not Given AC [facility] Protocol Metoprolol Succinate 25 mg 11/17/25 09:00 11/22/25 08:35 Metoprolol Succinate Xl 25 Mg Tabcr PO 12/17/25 08:59 25 mg QDAY NANCY Administration Ondansetron HCl 4 mg 11/16/25 21:29 Ondansetron Inj 2 Mg/Ml Inj 2 Ml IVP 12/16/25 21:28 Q6H PRN NAUSEA OR VOMITING Protocol Fluticasone/Salmeterol 1 puff 11/19/25 10:15 11/22/25 07:54 Fluticasone/Salmeterol 250/50 14 Dose Inh INH 12/19/25 10:14 Not Given BIDRT NANCY Sennosides 1 tab 11/16/25 22:13 Senna/Docusate Sod 1 Tab Tablet PO 12/16/25 22:12 QDAY PRN CONSTIPATION Protocol Sodium Chloride 3 ml 11/16/25 20:39 11/16/25 21:32 Sodium Chloride Rt Lucia 0.9% 3 Ml Nebu INH 12/16/25 20:38 3 ml PRN PRN Administration SOLN Tamsulosin HCl 0.4 mg 11/17/25 09:00 11/22/25 08:35 Tamsulosin Hcl 0.4 Mg Capsule PO 12/17/25 08:59 0.4 mg QDAY NANCY Administration Vitamin B Complex/Vit C/Folic Acid 1 tab 11/17/25 09:00 11/22/25 08:35 Vitamin B Complex Tablet PO 12/17/25 08:59 1 tab QDAY NANCY Administration Plan 80-year-old male with a history of type 2 diabetes mellitus, hypertension, hyperlipidemia, BPH, HFpEF (EF 50 to 55%, 2022), CKD, lung cancer status post bilateral lobectomies at [facility] who is admitted for further workup of GI bleed. #Lower GI bleed, 2/2 external and internal hemorrhoids, s/p banding on 11/19 #Bright red blood per rectum #Symptomatic, blood loss anemia #Microcytic anemia Endorses having had 3-4 bright red blood bloody bowel movements last month with a corresponding drop in hemoglobin from 14 to 10. Experiencing associated dyspnea upon exertion and shortness of breath and denies any cough, sore throat, sick contacts. Favor GI bleed versus pneumonia versus COPD exacerbation. Dx: -11/18 EGD and colonoscopy scheduled, showed normal esophagus with some erythema of antrum mucosa and duodenum top-coto and showed external and internal hemorrhoids which were banded bottom-coto Rx: -GI consulted, appreciate recommendations -GI recommends outpatient air-contrast barium enema, which will be mentioned in the discharge instructions -Trend hemoglobin and transfuse if hemoglobin <7 -B12 and folate supplementation -Follow-up homocystine and methylmalonic acid levels #Acute hypoxic respiratory failure 2/2 #CHF exacerbation vs. community acquired pneumonia versus COPD exacerbation 11/16 CXR showed extensive pleural parenchymal scarring throughout the lungs as well as pulmonary hypertension Will continue to monitor oxygen levels but favor CHF exacerbation and volume overloaded status as primary contributor of ongoing increased oxygen demand Dx: -Repeat CXR ordered, showed increasing interstitial infiltrate in the right lower lobe Rx: ? [place] every 6 hours scheduled ? DuoNebs every 2 hours as needed ? Azithromycin 500 mg IV daily [11/16--] ? Rocephin 1 g IV daily [11/19--] ? Fluticasone/salmeterol 1 puff twice daily ? Home oxygen tank already obtained #BPH #Urinary retention CT A/P on 11/16 shows transverse prostate of 4.5 cm. ? Tamsulosin 0.4 mg daily ? Bladder scans PRN ? Follow-up outpatient #HFpEF (EF 60-65%) #Pulmonary hypertension with right ventricular dilation Not in acute exacerbation. Follows Dr. Robbins outpatient. Recent echo this visit showed marked right ventricular hypertrophy, likely 2/2 significant scarring of the lungs i/s/o lung cancer s/p bilateral lobectomies Dx: -11/16/25 echo ordered, showed EF 60-65%, enlarged RV w/ RVSP 70-75 mmHg, RAP 8, possible severe PHTN, and dilated IVC Rx: ? Cardiology consulted (Dr. Robbins), appreciate recommendations ? Metoprolol 25 mg daily ? IV Bumex 1 mg twice daily (due to pulmonary artery hypertension) ? Aspirin 81 mg daily ? Keep K >4, magnesium >2 ? Cardiology recommends outpatient follow-up for possible left and right heart catheterization to check pulmonary artery pressure #Type 2 diabetes mellitus A1c 6.7% ? SSI ? Hypoglycemia protocol in place ? Consistent carb diet #CKD stage IV CT A/P showing renal scarring. Follows Dr. Ruvalcaba outpatient. ? Avoid nephrotoxic drugs when possible, renally dose medication ? Continue outpatient follow-up #Hyperlipidemia ? Atorvastatin 40 mg at bedtime #Hypertension ? Metoprolol 25 mg daily Hospital management: Disposition: Med Surg, anticipate discharge within 1-2 days Diet: Cardiac Lines: PIV DVT prophylaxis: heparin SC Garcia: N/A, in and out caths PRN CODE STATUS: Full Code Patient plan of care was discussed with the senior resident, Dr. Medeiros, and the attending physician, Dr. Trent. Alexsandra Bradley DO, PGY-1 Attending Provider Attestation/Addendum I have discussed and was present for the essential components of the history, physical examination, diagnosis, and treatment plan with the resident. I agree with the patient's care as documented by the resident and amended herein by me. Bud Trent DO. Although this document has been carefully reviewed, there may still be some phonetic and other typographical errors. These errors are purely grammatical due to imperfections in the software program and should not be construed in any way to compromise the substance of the patient's medical care during this visit.
[2025-11-22 13:45] LABS: Procalcitonin 0.17 ng/ml (0.0-0.49)
[2025-11-22] MEDS: FLUTICASONE/SALMETEROL 250/50 14 DOSE INH 1 PUFF INH (18:57)
[2025-11-22] MEDS: ATORVASTATIN CALCIUM 20 MG TABLET 40 MG PO (20:55)
[2025-11-23] VITALS (10 sets, daily range): BP systolic 114–131; BP diastolic 64–85; PULSE 80–103; RESP 17–24; TEMP 36.2–36.7; O2SAT 94–97
[2025-11-23 05:58] LABS: Basophils # (Auto) 0.0 Thou/mm3 (0.0-0.2); Basophils % (Auto) 1 % (0-2.5); Eosinophils # (Auto) 0.1 Thou/mm3 (0.0-0.5); Eosinophils % (Auto) 2 % (0-10); Hematocrit 33.3 % (41.0-53.0); Hemoglobin 10.2 g/dL (13.5-16.0); Immature Granulocytes Auto 0.01 Thou/mm3 (0.00-0.00); Lymphocytes # (Auto) 0.8 Thou/mm3 (1.0-4.8); Lymphocytes % (Auto) 13 % (10-50); Mean Corpuscular HGB Conc 30.6 g/dl (31.0-37.0); Mean Corpuscular Hemoglobin 32.1 pg (25.0-35.0); Mean Corpuscular Volume 105 fL (80-100); Monocytes # (Auto) 0.5 Thou/mm3 (0.0-0.8); Monocytes % (Auto) 8 % (0-12); Neutrophils # (Auto) 4.4 Thou/mm3 (1.8-7.7); Neutrophils % (Auto) 76 % (37-80); Nucleated Red Blood Cell # 0.00 Thou/mm3 (0.00-0.00); Nucleated Red Blood Cell % 0 /100 WBC (0); Platelet Count 152 Thou/mm3 (140-440); RDW Standard Deviation 49.2 fL (35.1-43.9); Red Blood Count 3.18 Miln/mm3 (4.50-5.90); White Blood Count 5.7 Thou/mm3 (3.8-10.6)
[2025-11-23 06:23] LABS: Albumin, Serum 3.9 gm/dL (3.4-4.8); Anion Gap 10 (7-16); BUN/Creatinine Ratio 13 Ratio (12-20); Blood Urea Nitrogen 28 mg/dL (9-23); Calcium 8.7 mg/dL (8.3-10.6); Calcium (Corrected) 8.8 mg/dL (8.5-10.1); Carbon Dioxide 32.1 mMol/L (20.0-31.0); Chloride 104 mMol/L (98-107); Creatinine (Component) 2.1 mg/dL (0.6-1.3); Estimated Creatinine Clearance 35.2 mL/min (>60); Glucose 136 mg/dL (74-106); Magnesium 1.7 mg/dL (1.6-2.6); Osmolality,Calculated 298 (275-295); Phosphorous 3.3 mg/dL (2.4-5.1); Potassium 3.9 mMol/L (3.4-5.1); Sodium 146 mMol/L (136-145); eGFR 31 See Note
[2025-11-23] MEDS: FLUTICASONE/SALMETEROL 250/50 14 DOSE INH 1 PUFF INH (06:45)
[2025-11-23] MEDS: cefTRIAXone/D5w 1gm IV premix 1 GM/50 ML BAG IV (08:24)
[2025-11-23] MEDS: VITAMIN B COMPLEX TABLET 1 TAB PO (08:25)
[2025-11-23] MEDS: FOLIC ACID 1 MG TABLET PO (08:25)
[2025-11-23] MEDS: BUMETANIDE INJ 0.25 MG/ML VIAL 4 ML 1 MG IVP ×2 (08:25→20:30)
[2025-11-23] MEDS: AZITHROMYCIN INJ 500 MG in SODIUM CHLORIDE 0.9% 250 ML 250 ML 250 MG IV (08:25)
[2025-11-23] MEDS: METOPROLOL SUCCINATE XL 25 MG TABCR PO (08:25)
[2025-11-23] MEDS: ASPIRIN EC 81 MG TABEC PO (08:25)
[2025-11-23] MEDS: TAMSULOSIN HCL 0.4 MG CAPSULE PO (08:25)
--- NOTE | 2025-11-23 08:50 | PD.RESPRO ---
Documentation for date of: 11/23/25 Subjective Subjective Interval history: Patient seen and examined at bedside. Reports that his breathing is improved. Patient on 3 L nasal cannula, SpO2 greater than 92. Patient currently being diuresed with Bumex 1 mg IV twice daily, will give additional dose of acetazolamide today. Otherwise patient is stable has no current complaints. Labs and vitals reviewed. Exam Vital Signs Temp Pulse Resp BP Pulse Ox O2 Del Method O2 Flow Rate 97.4 F 81 18 125/64 95 Nasal Cannula 5 11/23/25 08:00 11/23/25 08:25 11/23/25 08:00 11/23/25 08:25 11/23/25 08:00 11/23/25 08:00 11/23/25 08:00 Narrative Exam General: No acute distress, well nourished, AAO x3 Eye: Normal conjunctiva, no scleral icterus HENT: Normocephalic, atraumatic, hearing intact to conversation at normal volume, moist oral mucosa Neck: Supple, non-tender, no JVD, no lymphadenopathy Lungs: Non-labored respirations, symmetric chest rise, Clear to auscultate bilaterally, No wheezing, rhonchi, crackles Heart: Peripheral pulses intact bilaterally, Regular Rate and Rhythm. Abdomen: Soft, non-tender, non-distended, no palpable masses Musculoskeletal: Normal range of motion and strength, No cyanosis or edema, No visible joint swelling Skin: Skin is warm, dry, no rashes or lesions. Psychiatric: Cooperative, appropriate mood and affect, Awake and alert, not agitated Neuro: Cranial nerves II-XII grossly intact. Strength 5/5 throughout. Sensations intact to light touch. Objective Labs 11/23/25 05:11 11/23/25 05:11 Labs: Laboratory Results - last 24 hr 11/22/25 11/22/25 11/23/25 04:40 04:40 05:11 WBC 5.7 RBC 3.18 L Hgb 10.2 L Hct 33.3 L MCV 105 H MCH 32.1 MCHC 30.6 L RDW Std Deviation 49.2 H Plt Count 152 Neut % (Auto) 76 Lymph % (Auto) 13 [place] % (Auto) 8 Eos % (Auto) 2 Baso % (Auto) 1 Neut # (Auto) 4.4 Lymph # (Auto) 0.8 L [place] # (Auto) 0.5 Eos # (Auto) 0.1 Baso # (Auto) 0.0 Immature Gran # (Auto) 0.01 H Absolute Nucleated RBC 0.00 Immature Gran % 0 Nucleated RBC % 0 Sodium 146 H Potassium 3.9 Chloride 104 Carbon Dioxide 32.1 H Anion Gap 10 BUN 28 H Creatinine 2.1 H Estim Creat Clear Calc 35.2 L eGFR 31 L BUN/Creatinine Ratio 13 Glucose 136 H Calculated Osmolality 298 H Calcium 8.7 Corrected Calcium 8.8 Phosphorus 3.3 Magnesium 1.7 Albumin 3.9 Procalcitonin Cancelled 0.17 ABG Interpretation ABG results: 11/16/25 21:41 VBG pH 7.28 L VBG pCO2 56 VBG pO2 30 VBG Base Excess -1 Quality Measures Quality Measures VTE prophylaxis Advance care planning discussed with:: patient Assessment & Plan Assessment Current Active Medications: Generic Name Dose Route Start Last Admin Trade Name Freq PRN Reason Stop Dose Admin Acetaminophen 650 mg 11/16/25 21:29 Acetaminophen 325 Mg Tablet PO 12/16/25 21:28 Q6H PRN Fever >101.5 or pain 1-3 Albuterol/Ipratropium 3 ml 11/19/25 10:08 Albuterol/Ipratropium (Duoneb) Rt Lucia 3 Ml Nebu INH 12/17/25 00:59 Q6HRRT PRN wheezing Aspirin 81 mg 11/17/25 09:00 11/23/25 08:25 Aspirin Ec 81 Mg Tabec PO 12/17/25 08:59 81 mg QDAY NANCY Administration Atorvastatin Calcium 40 mg 11/17/25 21:00 11/22/25 20:55 Atorvastatin Calcium 20 Mg Tablet PO 12/17/25 20:59 40 mg HS NANCY Administration Bumetanide 1 mg 11/22/25 21:00 11/23/25 08:25 Bumetanide Inj 0.25 Mg/Ml Vial 4 Ml IVP 12/22/25 20:59 1 mg BID NANCY Administration Dextrose 25 ml 11/16/25 22:23 Dextrose 50%-Water Inj 50 Ml Syringe IV 12/16/25 22:22 Q15MIN PRN BG 50-70 responsive npo pt Dextrose 50 ml 11/16/25 22:23 Dextrose 50%-Water Inj 50 Ml Syringe IV 12/16/25 22:22 Q15MIN PRN BG <50 OR BG <70 & pt unresponsive Folic Acid 1 mg 11/17/25 09:00 11/23/25 08:25 Folic Acid 1 Mg Tablet PO 12/17/25 08:59 1 mg QDAY NANCY Administration Glucagon 1 mg 11/16/25 22:23 Glucagon Inj 1 Mg Vial IM Q15MIN PRN BG <70, and no IV access Heparin Sodium (Porcine) 5,000 unit 11/16/25 21:45 11/22/25 20:58 Heparin Sod Inj 5000 Unit/Ml Vial SC 11/30/25 21:44 5,000 unit Q12H NANCY Administration Azithromycin 500 mg/ Sodium 250 mls @ 250 mls/hr 11/17/25 09:15 11/23/25 08:25 Chloride IV 11/24/25 09:14 250 mls/hr QDAY NANCY Administration Ceftriaxone Sodium/Dextrose 1 gm in 50 mls @ 100 mls/hr 11/19/25 10:39 11/23/25 08:24 Rocephin/D5w 1gm Iv Premix IV 11/26/25 10:38 100 mls/hr QDAY NANCY Administration Insulin Human Lispro 0 unit 11/17/25 07:30 11/23/25 07:34 Insulin Lispro (Admelog) 1 Unit/0.01 Ml Unit SC 12/17/25 07:29 Not Given AC [facility] Protocol Metoprolol Succinate 25 mg 11/17/25 09:00 11/23/25 08:25 Metoprolol Succinate Xl 25 Mg Tabcr PO 12/17/25 08:59 25 mg QDAY NANCY Administration Ondansetron HCl 4 mg 11/16/25 21:29 Ondansetron Inj 2 Mg/Ml Inj 2 Ml IVP 12/16/25 21:28 Q6H PRN NAUSEA OR VOMITING Protocol Fluticasone/Salmeterol 1 puff 11/19/25 10:15 11/23/25 06:45 Fluticasone/Salmeterol 250/50 14 Dose Inh INH 12/19/25 10:14 1 puff BIDRT NANCY Administration Sennosides 1 tab 11/16/25 22:13 Senna/Docusate Sod 1 Tab Tablet PO 12/16/25 22:12 QDAY PRN CONSTIPATION Protocol Sodium Chloride 3 ml 11/16/25 20:39 11/16/25 21:32 Sodium Chloride Rt Lucia 0.9% 3 Ml Nebu INH 12/16/25 20:38 3 ml PRN PRN Administration SOLN Tamsulosin HCl 0.4 mg 11/17/25 09:00 11/23/25 08:25 Tamsulosin Hcl 0.4 Mg Capsule PO 12/17/25 08:59 0.4 mg QDAY NANCY Administration Vitamin B Complex/Vit C/Folic Acid 1 tab 11/17/25 09:00 11/23/25 08:25 Vitamin B Complex Tablet PO 12/17/25 08:59 1 tab QDAY NANCY Administration Plan 80-year-old male with a history of type 2 diabetes mellitus, hypertension, hyperlipidemia, BPH, HFpEF (EF 50 to 55%, 2022), CKD, lung cancer status post bilateral lobectomies at [facility] who is admitted for further workup of GI bleed. Cardiology consulted for severe shortness of breathe. #Acute Decompensated Heart Failure #Congestive diastolic HFpEF, EF 60-65% #Severe Pulmonary Hypertension (Type II vs Type III) -Patient initially had severe shortness of breathe on admission. -On admission, Troponin: 0.027, BNP: 257 -CXR: COPD with extensive pleural parenchymal scarring throughout the lungs, Pulmonary artery hypertension, No interval pneumonia or pulmonary edema -ECHO (11/16/2025) showed: 1. Left ventricle size is normal and systolic function is normal. Estimated ejection fraction is6 0-65%. There is grade I diastolic dysfunction. 2. Right ventricle chamber size is severely enlarged and systolic function is normal. Estimated RVSP is 70-75mmHg with RAP 8. Possible severe PHTN. 3. Flattening of the ventricular septum in mid to late systole consistent with right ventricular volume overload. 4. There is moderate aortic valve sclerosis with mild stenosis and trace regurgitation. 5. There is mild mitral and pulmonic valve regurgitation. Moderate eccentric tricuspid regurgitation with mild MAC. 6. The left atrium is moderately enlarged. The right atrium is severely enlarged. 7. Dilated IVC with estimated RA pressure 8 mmHg. Plan: -Continue IV bumex 1mg bid, Aspirin 81mg po qd, and Metoprolol 25mg po qd. will give additional dose of acetazolamide 500 mg x 1 -Patient stable to be discharged on Bumex 1 mg p.o. twice daily from cardiology standpoint. -After discharge, possible right and left heart cardiac catheterization for assessment of possible primary pulmonary hypertension -Strict I&O -Daily weight -Fluid restriction 1500cc -Low sodium diet #Hyperlipidemia -Continue Atorvastatin 40mg po HS #Hypertension -Continue Metoprolol 25mg po qd #Lower GI bleed, 2/2 external and internal hemorrhoids, s/p banding on 11/19 #Bright red blood per rectum #Symptomatic, blood loss anemia #Microcytic anemia #BPH #Urinary retention #Type 2 diabetes mellitus #CKD stage IV -Management per Primary Hospitalist team Thank you for the consult and allowing to participate in the care of the patient. Cardiology will continue to follow. Case discussed with Attending Physician Dr. Bhanu Wolf MD Internal Medicine PGY-2 Disclaimer: This note was dictated by speech recognition. Minor errors in centrifugal spinner may be present due to voice recognition software. Attending Provider Attestation/Addendum I reviewed the resident Pretty Wolf consultation progress note and agree with the resident findings and plan in the note above and have also edited the documentation to reflect my findings and plan. Bhanu Christian M.D. Interventional Cardiology
[2025-11-23] MEDS: HEPARIN SOD INJ 5000 UNIT/ML VIAL SC ×2 (11:38→20:45)
--- NOTE | 2025-11-23 13:02 | ESPR_ITS ---
<Statement entered by Mikaela Medeiros MD - 11/23/25 16:01> Patient was seen and examined at bedside. I agree in the assessment and plan on this note. - Patient's plan and care discussed with my attending, Dr. Miley Medeiros MD Internal Medicine PGY-3 Documentation for date of: 11/23/25 Subjective Subjective Interval history: Patient had no acute events overnight. Patient states he feels okay but feels winded when sitting up. Patient has home o2 delivered and ready. Physical therapy attempted to see patient previously but patient refused, PT will retry again today if their schedule permits. Patient is 3L fluid positive for hospital course, continuing bumex; gave diamox 500 mg x1 IV today for further diuresis with elevated bicarb. Patient on 5 L NC. Patient amenable to SNF discharge, will follow up with social services manager. Exam Vital Signs Temp Pulse Resp BP Pulse Ox O2 Del Method O2 Flow Rate 97.2 F 80 17 124/66 95 Nasal Cannula 5 11/23/25 12:00 11/23/25 12:00 11/23/25 12:00 11/23/25 12:00 11/23/25 12:00 11/23/25 12:00 11/23/25 12:00 Narrative Exam General: No acute distress; A&Ox3 Skin: Warm, dry, intact, no obvious rash. HENT: NCAT, EOMI/PERRL, not icteric. External ears normal. No rhinorrhea. Moist mucous membranes Cardiovascular: Regular rate and rhythm, no murmur, +S1/S2. Respiratory: Lungs CTAB, nasal cannula GI: Soft, nontender, non-distended. No guarding or rebound tenderness. : No suprapubic tenderness. No flank tenderness bilaterally. Extremities: no edema, no cyanosis, no clubbing. Extremity pulses present Neuro: Grossly nonfocal. Moving all 4 extremities. CN not formally tested but appear grossly intact. Psychiatric: Cooperative, appropriate affect. Objective Labs 11/23/25 05:11 11/23/25 05:11 Labs: Laboratory Results - last 24 hr 11/22/25 11/22/25 11/23/25 04:40 04:40 05:11 WBC 5.7 RBC 3.18 L Hgb 10.2 L Hct 33.3 L MCV 105 H MCH 32.1 MCHC 30.6 L RDW Std Deviation 49.2 H Plt Count 152 Neut % (Auto) 76 Lymph % (Auto) 13 [place] % (Auto) 8 Eos % (Auto) 2 Baso % (Auto) 1 Neut # (Auto) 4.4 Lymph # (Auto) 0.8 L [place] # (Auto) 0.5 Eos # (Auto) 0.1 Baso # (Auto) 0.0 Immature Gran # (Auto) 0.01 H Absolute Nucleated RBC 0.00 Immature Gran % 0 Nucleated RBC % 0 Sodium 146 H Potassium 3.9 Chloride 104 Carbon Dioxide 32.1 H Anion Gap 10 BUN 28 H Creatinine 2.1 H Estim Creat Clear Calc 35.2 L eGFR 31 L BUN/Creatinine Ratio 13 Glucose 136 H Calculated Osmolality 298 H Calcium 8.7 Corrected Calcium 8.8 Phosphorus 3.3 Magnesium 1.7 Albumin 3.9 Procalcitonin Cancelled 0.17 ABG Interpretation ABG results: 11/16/25 21:41 VBG pH 7.28 L VBG pCO2 56 VBG pO2 30 VBG Base Excess -1 Quality Measures Quality Measures VTE prophylaxis Advance care planning discussed with:: patient Assessment & Plan Assessment Current Active Medications: Generic Name Dose Route Start Last Admin Trade Name Freq PRN Reason Stop Dose Admin Acetaminophen 650 mg 11/16/25 21:29 Acetaminophen 325 Mg Tablet PO 12/16/25 21:28 Q6H PRN Fever >101.5 or pain 1-3 Albuterol/Ipratropium 3 ml 11/19/25 10:08 Albuterol/Ipratropium (Duoneb) Rt Lucia 3 Ml Nebu INH 12/17/25 00:59 Q6HRRT PRN wheezing Aspirin 81 mg 11/17/25 09:00 11/23/25 08:25 Aspirin Ec 81 Mg Tabec PO 12/17/25 08:59 81 mg QDAY NANCY Administration Atorvastatin Calcium 40 mg 11/17/25 21:00 11/22/25 20:55 Atorvastatin Calcium 20 Mg Tablet PO 12/17/25 20:59 40 mg HS NANCY Administration Bumetanide 1 mg 11/22/25 21:00 11/23/25 08:25 Bumetanide Inj 0.25 Mg/Ml Vial 4 Ml IVP 12/22/25 20:59 1 mg BID NANCY Administration Dextrose 25 ml 11/16/25 22:23 Dextrose 50%-Water Inj 50 Ml Syringe IV 12/16/25 22:22 Q15MIN PRN BG 50-70 responsive npo pt Dextrose 50 ml 11/16/25 22:23 Dextrose 50%-Water Inj 50 Ml Syringe IV 12/16/25 22:22 Q15MIN PRN BG <50 OR BG <70 & pt unresponsive Folic Acid 1 mg 11/17/25 09:00 11/23/25 08:25 Folic Acid 1 Mg Tablet PO 12/17/25 08:59 1 mg QDAY NANCY Administration Glucagon 1 mg 11/16/25 22:23 Glucagon Inj 1 Mg Vial IM Q15MIN PRN BG <70, and no IV access Heparin Sodium (Porcine) 5,000 unit 11/16/25 21:45 11/23/25 11:38 Heparin Sod Inj 5000 Unit/Ml Vial SC 11/30/25 21:44 5,000 unit Q12H NANCY Administration Azithromycin 500 mg/ Sodium 250 mls @ 250 mls/hr 11/17/25 09:15 11/23/25 08:25 Chloride IV 11/24/25 09:14 250 mls/hr QDAY NANCY Administration Ceftriaxone Sodium/Dextrose 1 gm in 50 mls @ 100 mls/hr 11/19/25 10:39 11/23/25 08:24 Rocephin/D5w 1gm Iv Premix IV 11/26/25 10:38 100 mls/hr QDAY NANCY Administration Insulin Human Lispro 0 unit 11/17/25 07:30 11/23/25 11:37 Insulin Lispro (Admelog) 1 Unit/0.01 Ml Unit SC 12/17/25 07:29 Not Given AC [facility] Protocol Metoprolol Succinate 25 mg 11/17/25 09:00 11/23/25 08:25 Metoprolol Succinate Xl 25 Mg Tabcr PO 12/17/25 08:59 25 mg QDAY NANCY Administration Ondansetron HCl 4 mg 11/16/25 21:29 Ondansetron Inj 2 Mg/Ml Inj 2 Ml IVP 12/16/25 21:28 Q6H PRN NAUSEA OR VOMITING Protocol Fluticasone/Salmeterol 1 puff 11/19/25 10:15 11/23/25 06:45 Fluticasone/Salmeterol 250/50 14 Dose Inh INH 12/19/25 10:14 1 puff BIDRT NANCY Administration Sennosides 1 tab 11/16/25 22:13 Senna/Docusate Sod 1 Tab Tablet PO 12/16/25 22:12 QDAY PRN CONSTIPATION Protocol Sodium Chloride 3 ml 11/16/25 20:39 11/16/25 21:32 Sodium Chloride Rt Lucia 0.9% 3 Ml Nebu INH 12/16/25 20:38 3 ml PRN PRN Administration SOLN Tamsulosin HCl 0.4 mg 11/17/25 09:00 11/23/25 08:25 Tamsulosin Hcl 0.4 Mg Capsule PO 12/17/25 08:59 0.4 mg QDAY NANCY Administration Vitamin B Complex/Vit C/Folic Acid 1 tab 11/17/25 09:00 11/23/25 08:25 Vitamin B Complex Tablet PO 12/17/25 08:59 1 tab QDAY NANCY Administration Plan 80-year-old male with a history of type 2 diabetes mellitus, hypertension, hyperlipidemia, BPH, HFpEF (EF 50 to 55%, 2022), CKD, lung cancer status post bilateral lobectomies at [facility] who is admitted for further workup of GI bleed. #Lower GI bleed, 2/2 external and internal hemorrhoids, s/p banding on 11/19 #Bright red blood per rectum #Symptomatic, blood loss anemia #Microcytic anemia Endorses having had 3-4 bright red blood bloody bowel movements last month with a corresponding drop in hemoglobin from 14 to 10. Experiencing associated dyspnea upon exertion and shortness of breath and denies any cough, sore throat, sick contacts. Favor GI bleed versus pneumonia versus COPD exacerbation. Dx: -11/18 EGD and colonoscopy scheduled, showed normal esophagus with some erythema of antrum mucosa and duodenum top-coto and showed external and internal hemorrhoids which were banded bottom-coto Rx: -GI consulted, appreciate recommendations -GI recommends outpatient air-contrast barium enema, which will be mentioned in the discharge instructions -Trend hemoglobin and transfuse if hemoglobin <7 -B12 and folate supplementation -Follow-up homocystine and methylmalonic acid levels, pending #Acute hypoxic respiratory failure 2/2 #CHF exacerbation vs. community acquired pneumonia versus COPD exacerbation 11/16 CXR showed extensive pleural parenchymal scarring throughout the lungs as well as pulmonary hypertension Will continue to monitor oxygen levels but favor CHF exacerbation and volume overloaded status as primary contributor of ongoing increased oxygen demand Dx: -Repeat CXR ordered, showed increasing interstitial infiltrate in the right lower lobe Rx: ? DuoNebs every 6 hours scheduled ? Azithromycin 500 mg IV daily [11/16--] ? Rocephin 1 g IV daily [11/19--] ? Fluticasone/salmeterol 1 puff twice daily ? Home oxygen tank already obtained #BPH #Urinary retention CT A/P on 11/16 shows transverse prostate of 4.5 cm. ? Tamsulosin 0.4 mg daily ? Bladder scans PRN ? Follow-up outpatient #HFpEF (EF 60-65%) #Pulmonary hypertension with right ventricular dilation Not in acute exacerbation. Follows Dr. Robbins outpatient. Recent echo this visit showed marked right ventricular hypertrophy, likely 2/2 significant scarring of the lungs i/s/o lung cancer s/p bilateral lobectomies Dx: -11/16/25 echo ordered, showed EF 60-65%, enlarged RV w/ RVSP 70-75 mmHg, RAP 8, possible severe PHTN, and dilated IVC Rx: ? Cardiology consulted (Dr. Robbins), appreciate recommendations ? Metoprolol 25 mg daily ? IV Bumex 1 mg twice daily (due to pulmonary artery hypertension) - diamox 500 mg x1 IV today for further diuresis with elevated bicarb ? Aspirin 81 mg daily ? Keep K >4, magnesium >2 ? Cardiology recommends outpatient follow-up for possible left and right heart catheterization to check pulmonary artery pressure #Type 2 diabetes mellitus A1c 6.7% ? SSI ? Hypoglycemia protocol in place ? Consistent carb diet #CKD stage IV CT A/P showing renal scarring. Follows Dr. Ruvalcaba outpatient. ? Avoid nephrotoxic drugs when possible, renally dose medication ? Continue outpatient follow-up #Hyperlipidemia ? Atorvastatin 40 mg at bedtime #Hypertension ? Metoprolol 25 mg daily Hospital management: Disposition: Med Surg Diet: Carb consistent low Lines: PIV DVT prophylaxis: heparin SC Garcia: N/A, in and out caths PRN CODE STATUS: Full Code Patient plan of care was discussed with the attending physician, Dr. Trent & senior resident Dr. Mala Scanlon MD PGY-1 Attending Provider Attestation/Addendum I have discussed and was present for the essential components of the history, physical examination, diagnosis, and treatment plan with the resident. I agree with the patient's care as documented by the resident and amended herein by me. Bud Trent DO. Although this document has been carefully reviewed, there may still be some phonetic and other typographical errors. These errors are purely grammatical due to imperfections in the software program and should not be construed in any way to compromise the substance of the patient's medical care during this visit. Patient seen and evaluated this AM. No acute events overnight, vital signs stable, patient afebrile, significant labs include a sodium 146, creatinine 2.1 although improved. Considering the patient [place] [facility], he does want to go to SNF at least for a week or 2 until he functionally improves although PT did recommend discharge home he is not comfortable with that considering he lives alone without any help in a remote location. social worker school notified, for now we will continue aspirin, statin, Bumex, ceftriaxone, metoprolol succinate and Flomax. Patient will need continued workup for his severe pulmonary arterial hypertension, will continue to diurese for another day or 2 to optimize the patient prior to discharge.
--- NOTE | 2025-11-23 15:07 | PD.IMPROG ---
Documentation for date of: 11/23/25 Subjective Subjective Interval history: Hemoglobin hematocrit 10.2 and 33.3 Exam Vital Signs Temp Pulse Resp BP Pulse Ox O2 Del Method O2 Flow Rate 97.2 F 80 17 124/66 95 Nasal Cannula 5 11/23/25 12:00 11/23/25 12:00 11/23/25 12:00 11/23/25 12:00 11/23/25 12:00 11/23/25 12:00 11/23/25 12:00 Objective Labs 11/23/25 05:11 11/23/25 05:11 Labs: Laboratory Results - last 24 hr 11/23/25 05:11 WBC 5.7 RBC 3.18 L Hgb 10.2 L Hct 33.3 L MCV 105 H MCH 32.1 MCHC 30.6 L RDW Std Deviation 49.2 H Plt Count 152 Neut % (Auto) 76 Lymph % (Auto) 13 [place] % (Auto) 8 Eos % (Auto) 2 Baso % (Auto) 1 Neut # (Auto) 4.4 Lymph # (Auto) 0.8 L [place] # (Auto) 0.5 Eos # (Auto) 0.1 Baso # (Auto) 0.0 Immature Gran # (Auto) 0.01 H Absolute Nucleated RBC 0.00 Immature Gran % 0 Nucleated RBC % 0 Sodium 146 H Potassium 3.9 Chloride 104 Carbon Dioxide 32.1 H Anion Gap 10 BUN 28 H Creatinine 2.1 H Estim Creat Clear Calc 35.2 L eGFR 31 L BUN/Creatinine Ratio 13 Glucose 136 H Calculated Osmolality 298 H Calcium 8.7 Corrected Calcium 8.8 Phosphorus 3.3 Magnesium 1.7 Albumin 3.9 Impressions Impression: Diverticular bleeding versus internal hemorrhoidal bleeding requiring band ligation Continue to monitor CBC ABG Interpretation ABG results: 11/16/25 21:41 VBG pH 7.28 L VBG pCO2 56 VBG pO2 30 VBG Base Excess -1 Assessment & Plan A&P Narrative # Anemia blood loss # Hematochezia Plan Clear liquid diet GoLytely prep If 1 gallon is not enough start the second gallon Consent obtained for fiberoptic colonoscopy as well as fiberoptic upper endoscopy with biopsy and therapeutic intervention if needed under intravenous moderate sedation Once patient is clear n.p.o. Both upper endoscopy and colonoscopy tentatively scheduled for tomorrow Other medical problems include Diabetes mellitus type 2 Hyperlipidemia Polycythemia Lung carcinoma status post bilateral lobectomy 20 years ago at [facility] CKD stage III being followed by kosher dietary service supervisor Dr. Aleman Thank you very much for the opportunity to participate in the care of this patient Time Spent With Patient Time: Total time spent is greater than 50% in coordination of care (as documented) at patient's floor/unit and/or counseling patient:
[2025-11-23] MEDS: ATORVASTATIN CALCIUM 20 MG TABLET 40 MG PO (20:38)
[2025-11-24] VITALS (12 sets, daily range): BP systolic 115–130; BP diastolic 53–77; PULSE 72–104; RESP 16–27; TEMP 36.3–36.9; O2SAT 92–97
[2025-11-24 06:09] LABS: Basophils # (Auto) 0.0 Thou/mm3 (0.0-0.2); Basophils % (Auto) 0 % (0-2.5); Eosinophils # (Auto) 0.1 Thou/mm3 (0.0-0.5); Eosinophils % (Auto) 3 % (0-10); Hematocrit 31.1 % (41.0-53.0); Hemoglobin 9.7 g/dL (13.5-16.0); Immature Granulocytes Auto 0.01 Thou/mm3 (0.00-0.00); Lymphocytes # (Auto) 0.7 Thou/mm3 (1.0-4.8); Lymphocytes % (Auto) 14 % (10-50); Mean Corpuscular HGB Conc 31.2 g/dl (31.0-37.0); Mean Corpuscular Hemoglobin 32.3 pg (25.0-35.0); Mean Corpuscular Volume 104 fL (80-100); Monocytes # (Auto) 0.4 Thou/mm3 (0.0-0.8); Monocytes % (Auto) 9 % (0-12); Neutrophils # (Auto) 3.5 Thou/mm3 (1.8-7.7); Neutrophils % (Auto) 74 % (37-80); Nucleated Red Blood Cell # 0.00 Thou/mm3 (0.00-0.00); Nucleated Red Blood Cell % 0 /100 WBC (0); Platelet Count 154 Thou/mm3 (140-440); RDW Standard Deviation 48.8 fL (35.1-43.9); Red Blood Count 3.00 Miln/mm3 (4.50-5.90); White Blood Count 4.7 Thou/mm3 (3.8-10.6)
[2025-11-24 06:31] LABS: Alanine Aminotransferase 14 U/L (10-49); Albumin, Serum 3.9 gm/dL (3.4-4.8); Albumin/Globulin Ratio 1.5 (1.2-2.2); Alkaline Phosphatase 76 U/L (46-116); Anion Gap 10 (7-16); Aspartate Amino Transferase 18 U/L (0-34); BUN/Creatinine Ratio 14 Ratio (12-20); Bilirubin,Total 0.4 mg/dL (0.3-1.2); Blood Urea Nitrogen 30 mg/dL (9-23); Calcium 8.6 mg/dL (8.3-10.6); Calcium (Corrected) 8.7 mg/dL (8.5-10.1); Carbon Dioxide 30.8 mMol/L (20.0-31.0); Chloride 104 mMol/L (98-107); Creatinine (Component) 2.1 mg/dL (0.6-1.3); Estimated Creatinine Clearance 35.2 mL/min (>60); Globulin 2.6 gm/dL (2.3-3.5); Glucose 129 mg/dL (74-106); Magnesium 1.7 mg/dL (1.6-2.6); Osmolality,Calculated 296 (275-295); Phosphorous 3.9 mg/dL (2.4-5.1); Potassium 3.5 mMol/L (3.4-5.1); Sodium 145 mMol/L (136-145); Total Protein 6.5 gm/dL (5.7-8.2); eGFR 31 See Note
[2025-11-24] MEDS: FLUTICASONE/SALMETEROL 250/50 14 DOSE INH 1 PUFF INH ×2 (06:54→19:14)
[2025-11-24] MEDS: ASPIRIN EC 81 MG TABEC PO (08:30)
[2025-11-24] MEDS: cefTRIAXone/D5w 1gm IV premix 1 GM/50 ML BAG IV (08:30)
[2025-11-24] MEDS: METOPROLOL SUCCINATE XL 25 MG TABCR PO (08:30)
[2025-11-24] MEDS: AZITHROMYCIN INJ 500 MG in SODIUM CHLORIDE 0.9% 250 ML 250 ML 250 MG IV (08:30)
[2025-11-24] MEDS: FOLIC ACID 1 MG TABLET PO (08:30)
[2025-11-24] MEDS: BUMETANIDE INJ 0.25 MG/ML VIAL 4 ML 1 MG IVP ×2 (08:31→20:20)
[2025-11-24] MEDS: TAMSULOSIN HCL 0.4 MG CAPSULE PO (08:31)
[2025-11-24] MEDS: VITAMIN B COMPLEX TABLET 1 TAB PO (08:32)
[2025-11-24] MEDS: ONDANSETRON INJ 2 MG/ML INJ 2 ML 4 MG IVP (08:41)
--- NOTE | 2025-11-24 09:26 | PC.SS ---
Addendum entered by Ondina Carcamo 11/24/25 13:39: SS went to speak to pt in regards to no private room till 11/27 at [facility], SS also provided [facility] with a private room but due to a previosu stay there he declined. Pt requested for SS to submit referral in [place]. Search extended. Pending responses Addendum entered by Ondina Carcamo 11/24/25 12:18: SS received a call from [facility] who made a mistake and the semi-private she has available is a female bed not a male bed. Addendum entered by Ondina Carcamo 11/24/25 12:17: SS submitted SNF referral all facilities accepted, SS went to bedside to discuss options. Pt wishes for a private room. SS reached out to all facilities. Libia at [facility] has a empt semi private and will have a private on the he will be moved to. Margaret at [facility] also had a alirio private but with an occupant. Pt wishes to go to [facility]. Pt also has O2 delivered at bedside from [facility]. SS called Maryan to inform her of dispo change to SNF, Maryan stated they will send a cpr ambulance driver to [employer] Original Note: SS was informed by Dr. Trent pt is interested in short term rehab. SNF referral submitted, pending responses. SS will remain available during process.
--- NOTE | 2025-11-24 10:25 | ESPR_ITS ---
Documentation for date of: 11/24/25 Subjective Subjective Interval history: Patient seen examined at bedside, reports he is doing well, breathing better on 3 L nasal cannula. Patient denies any current complaints reports that his shortness of breath has improved. Labs and vitals reviewed. Patient being diuresed with Bumex 1 mg twice daily, was given Diamox yesterday, bicarb 30.8 today. Magnesium was repleted. Patient stable from cardiac standpoint to be discharged on Bumex 1 mg p.o. twice daily. Exam Vital Signs Temp Pulse Resp BP Pulse Ox O2 Del Method O2 Flow Rate 97.9 F 95 20 119/75 95 Nasal Cannula 3 11/24/25 08:00 11/24/25 08:31 11/24/25 08:00 11/24/25 08:31 11/24/25 08:00 11/24/25 08:00 11/24/25 08:00 Narrative Exam General: No acute distress, well nourished, AAO x3 Eye: Normal conjunctiva, no scleral icterus HENT: Normocephalic, atraumatic, hearing intact to conversation at normal volume, moist oral mucosa. On 3 L nasal cannula. Neck: Supple, non-tender, no JVD, no lymphadenopathy Lungs: Non-labored respirations, symmetric chest rise, Clear to auscultate bilaterally, No wheezing, rhonchi, crackles Heart: Peripheral pulses intact bilaterally, Regular Rate and Rhythm. Abdomen: Soft, non-tender, non-distended, no palpable masses Musculoskeletal: Normal range of motion and strength, No cyanosis or edema, No visible joint swelling Skin: Skin is warm, dry, no rashes or lesions. Psychiatric: Cooperative, appropriate mood and affect, Awake and alert, not agitated Neuro: Cranial nerves II-XII grossly intact. Strength 5/5 throughout. Sensations intact to light touch. Objective Labs 11/24/25 04:25 11/24/25 04:25 Labs: Laboratory Results - last 24 hr 11/24/25 04:25 WBC 4.7 RBC 3.00 L Hgb 9.7 L Hct 31.1 L MCV 104 H MCH 32.3 MCHC 31.2 RDW Std Deviation 48.8 H Plt Count 154 Neut % (Auto) 74 Lymph % (Auto) 14 [place] % (Auto) 9 Eos % (Auto) 3 Baso % (Auto) 0 Neut # (Auto) 3.5 Lymph # (Auto) 0.7 L [place] # (Auto) 0.4 Eos # (Auto) 0.1 Baso # (Auto) 0.0 Immature Gran # (Auto) 0.01 H Absolute Nucleated RBC 0.00 Immature Gran % 0 Nucleated RBC % 0 Sodium 145 Potassium 3.5 Chloride 104 Carbon Dioxide 30.8 Anion Gap 10 BUN 30 H Creatinine 2.1 H Estim Creat Clear Calc 35.2 L eGFR 31 L BUN/Creatinine Ratio 14 Glucose 129 H Calculated Osmolality 296 H Calcium 8.6 Corrected Calcium 8.7 Phosphorus 3.9 Magnesium 1.7 Total Bilirubin 0.4 AST 18 ALT 14 Alkaline Phosphatase 76 Total Protein 6.5 Albumin 3.9 Globulin 2.6 Albumin/Globulin Ratio 1.5 ABG Interpretation ABG results: 11/16/25 21:41 VBG pH 7.28 L VBG pCO2 56 VBG pO2 30 VBG Base Excess -1 Quality Measures Quality Measures VTE prophylaxis Advance care planning discussed with:: patient Assessment & Plan Assessment Current Active Medications: Generic Name Dose Route Start Last Admin Trade Name Freq PRN Reason Stop Dose Admin Acetaminophen 650 mg 11/16/25 21:29 Acetaminophen 325 Mg Tablet PO 12/16/25 21:28 Q6H PRN Fever >101.5 or pain 1-3 Albuterol/Ipratropium 3 ml 11/19/25 10:08 Albuterol/Ipratropium (Duoneb) Rt Lucia 3 Ml Nebu INH 12/17/25 00:59 Q6HRRT PRN wheezing Aspirin 81 mg 11/17/25 09:00 11/24/25 08:30 Aspirin Ec 81 Mg Tabec PO 12/17/25 08:59 81 mg QDAY NANCY Administration Atorvastatin Calcium 40 mg 11/17/25 21:00 11/23/25 20:38 Atorvastatin Calcium 20 Mg Tablet PO 12/17/25 20:59 40 mg HS NANCY Administration Bumetanide 1 mg 11/22/25 21:00 11/24/25 08:31 Bumetanide Inj 0.25 Mg/Ml Vial 4 Ml IVP 12/22/25 20:59 1 mg BID NANCY Administration Dextrose 25 ml 11/16/25 22:23 Dextrose 50%-Water Inj 50 Ml Syringe IV 12/16/25 22:22 Q15MIN PRN BG 50-70 responsive npo pt Dextrose 50 ml 11/16/25 22:23 Dextrose 50%-Water Inj 50 Ml Syringe IV 12/16/25 22:22 Q15MIN PRN BG <50 OR BG <70 & pt unresponsive Folic Acid 1 mg 11/17/25 09:00 11/24/25 08:30 Folic Acid 1 Mg Tablet PO 12/17/25 08:59 1 mg QDAY NANCY Administration Glucagon 1 mg 11/16/25 22:23 Glucagon Inj 1 Mg Vial IM Q15MIN PRN BG <70, and no IV access Heparin Sodium (Porcine) 5,000 unit 11/16/25 21:45 11/23/25 20:45 Heparin Sod Inj 5000 Unit/Ml Vial SC 11/30/25 21:44 5,000 unit Q12H NANCY Administration Ceftriaxone Sodium/Dextrose 1 gm in 50 mls @ 100 mls/hr 11/19/25 10:39 11/24/25 08:30 Rocephin/D5w 1gm Iv Premix IV 11/26/25 10:38 100 mls/hr QDAY NANCY Administration Magnesium Sulfate 4 gm in 50 mls @ 12.5 mls/hr 11/24/25 09:15 Magnesium Sulfate Ivpb IV 11/24/25 13:14 X1 ONE Insulin Human Lispro 0 unit 11/17/25 07:30 11/24/25 08:24 Insulin Lispro (Admelog) 1 Unit/0.01 Ml Unit SC 12/17/25 07:29 Not Given AC [facility] Protocol Metoprolol Succinate 25 mg 11/17/25 09:00 11/24/25 08:30 Metoprolol Succinate Xl 25 Mg Tabcr PO 12/17/25 08:59 25 mg QDAY NANCY Administration Ondansetron HCl 4 mg 11/16/25 21:29 11/24/25 08:41 Ondansetron Inj 2 Mg/Ml Inj 2 Ml IVP 12/16/25 21:28 4 mg Q6H PRN Administration NAUSEA OR VOMITING Protocol Fluticasone/Salmeterol 1 puff 11/19/25 10:15 11/24/25 06:54 Fluticasone/Salmeterol 250/50 14 Dose Inh INH 12/19/25 10:14 1 puff BIDRT NANCY Administration Sennosides 1 tab 11/16/25 22:13 Senna/Docusate Sod 1 Tab Tablet PO 12/16/25 22:12 QDAY PRN CONSTIPATION Protocol Sodium Chloride 3 ml 11/16/25 20:39 11/16/25 21:32 Sodium Chloride Rt Lucia 0.9% 3 Ml Nebu INH 12/16/25 20:38 3 ml PRN PRN Administration SOLN Tamsulosin HCl 0.4 mg 11/17/25 09:00 11/24/25 08:31 Tamsulosin Hcl 0.4 Mg Capsule PO 12/17/25 08:59 0.4 mg QDAY NANCY Administration Vitamin B Complex/Vit C/Folic Acid 1 tab 11/17/25 09:00 11/24/25 08:32 Vitamin B Complex Tablet PO 12/17/25 08:59 1 tab QDAY NANCY Administration Plan Assessment and plan: Summary: 80-year-old male with a history of type 2 diabetes mellitus, hypertension, hyperlipidemia, BPH, HFpEF (EF 50 to 55%, 2022), CKD, lung cancer status post bilateral lobectomies at [facility] who is admitted for further workup of GI bleed. Cardiology consulted for severe shortness of breath. #Acute Decompensated Heart Failure-improving #Congestive diastolic HFpEF, EF 60-65% #Severe Pulmonary Hypertension (Type II vs Type III) -Patient initially had severe shortness of breathe on admission. -On admission, Troponin: 0.027, BNP: 257 -CXR: COPD with extensive pleural parenchymal scarring throughout the lungs, Pulmonary artery hypertension, No interval pneumonia or pulmonary edema -ECHO (11/16/2025) showed: 1. Left ventricle size is normal and systolic function is normal. Estimatedejection fraction is6 0-65%. There is grade I diastolic dysfunction. 2. Right ventricle chamber size is severely enlarged and systolic function is normal. Estimated RVSP is 70-75mmHg with RAP 8. Possible severe PHTN. 3. Flattening of the ventricular septum in mid to late systole consistent with right ventricular volume overload. 4. There is moderate aortic valve sclerosis with mild stenosis and trace regurgitation. 5. There is mild mitral and pulmonic valve regurgitation. Moderate eccentric tricuspid regurgitation with mild MAC. 6. The left atrium is moderately enlarged. The right atrium is severely enlarged. 7. Dilated IVC with estimated RA pressure 8 mmHg. Plan: -Continue IV bumex 1mg bid, patient stable to be discharged on Bumex 1 mg p.o. twice daily from cardiology standpoint. -Continue metoprolol 25 mg daily and aspirin 81 mg daily -After discharge, possible right and left heart cardiac catheterization for assessment of possible primary pulmonary hypertension with primary comfort filler Dr. Robbins -Strict I&O -Daily weight -Fluid restriction 1500cc -Low sodium diet #Hyperlipidemia Lipid panel 09/02/2025: Triglyceride 146, cholesterol 112, LDL 34, HDL 49 -Continue Atorvastatin 40mg po HS #Hypertension -Continue Metoprolol 25mg po qd - Hold irbesartan on discharge #Community-acquired pneumonia #COPD exacerbation #Lower GI bleed, 2/2 external and internal hemorrhoids, s/p banding on 11/19 #Bright red blood per rectum #Symptomatic, blood loss anemia #Microcytic anemia #BPH #Urinary retention #Type 2 diabetes mellitus #CKD stage IV -Management per Primary Hospitalist team Thank you for the consult and allowing to participate in the care of the patient. Cardiology will continue to follow. Case discussed with Attending Physician Dr. Bhanu Wolf MD Internal Medicine PGY-2 Disclaimer: This note was dictated by speech recognition. Minor errors in grinder setup operator may be present due to voice recognition software. Attending Provider Attestation/Addendum I have personally seen and examined the patient separately on the above date of service and discussed the plan of care with the resident. I reviewed the resident Dr. Pretty Wolf consultation progress note and agree with the resident findings and plan in the note above and have also edited the documentation to reflect my findings and plan. Bhanu Christian M.D. Interventional Cardiology
[2025-11-24] MEDS: Magnesium Sulfate 4 GM Ivpb 4 GM/50 ML BAG IV (11:20)
--- NOTE | 2025-11-24 14:21 | ESPR_ITS ---
<Statement entered by Tuan Thao MD - 11/24/25 15:12> No acute overnight events. Seen and examined at bedside and patient resting comfortably in bed. Does not endorse any complaints at this time. Vital signs stable, saturating 92% on 4 L nasal cannula. CBC stable, CHEM panel also stable. Will continue to diurese with Bumex 1 mg IV twice daily. Noted to have had good urine output in the last 24 hours with I/O of 1300/3200. Currently pending placement for SNF, looking at places in [place] at this time and pending responses. Anticipate discharge in the next 24 to 48 hours. ----- Note reviewed and agree with care plan as documented. Please refer to the note below for further details. Plan discussed with attending physician Dr. Miley Thao MD PGY-2 Internal Medicine Documentation for date of: 11/24/25 Subjective Subjective Interval history: Patient had no acute events overnight. Patient to feel a little out of breath when sitting up. Patient has home o2 delivered and ready. Continuing to diurese patient, had over 3 L output last 24 hours. Patient on 4 L NC and continues to be tachypneic around the 20s. Patient amenable to SNF discharge, patient requested private room - S.W. continuing to search. Exam Vital Signs Temp Pulse Resp BP Pulse Ox O2 Del Method O2 Flow Rate 98.0 F 91 19 115/77 92 L Nasal Cannula 4 11/24/25 12:00 11/24/25 12:00 11/24/25 12:00 11/24/25 12:00 11/24/25 12:00 11/24/25 12:00 11/24/25 12:00 Narrative Exam General: No acute distress; A&Ox3 Skin: Warm, dry, intact, no obvious rash. HENT: NCAT, EOMI/PERRL, not icteric. External ears normal. No rhinorrhea. Moist mucous membranes Cardiovascular: Regular rate and rhythm, no murmur, +S1/S2. Respiratory: Lungs CTAB, nasal cannula, tachypneic GI: Soft, nontender, non-distended. No guarding or rebound tenderness. : No suprapubic tenderness. No flank tenderness bilaterally. Extremities: no edema, no cyanosis, no clubbing. Extremity pulses present Neuro: Grossly nonfocal. Moving all 4 extremities. CN not formally tested but appear grossly intact. Psychiatric: Cooperative, appropriate affect. Objective Labs 11/24/25 04:25 11/24/25 04:25 Labs: Laboratory Results - last 24 hr 11/24/25 04:25 WBC 4.7 RBC 3.00 L Hgb 9.7 L Hct 31.1 L MCV 104 H MCH 32.3 MCHC 31.2 RDW Std Deviation 48.8 H Plt Count 154 Neut % (Auto) 74 Lymph % (Auto) 14 Weber % (Auto) 9 Eos % (Auto) 3 Baso % (Auto) 0 Neut # (Auto) 3.5 Lymph # (Auto) 0.7 L Weber # (Auto) 0.4 Eos # (Auto) 0.1 Baso # (Auto) 0.0 Immature Gran # (Auto) 0.01 H Absolute Nucleated RBC 0.00 Immature Gran % 0 Nucleated RBC % 0 Sodium 145 Potassium 3.5 Chloride 104 Carbon Dioxide 30.8 Anion Gap 10 BUN 30 H Creatinine 2.1 H Estim Creat Clear Calc 35.2 L eGFR 31 L BUN/Creatinine Ratio 14 Glucose 129 H Calculated Osmolality 296 H Calcium 8.6 Corrected Calcium 8.7 Phosphorus 3.9 Magnesium 1.7 Total Bilirubin 0.4 AST 18 ALT 14 Alkaline Phosphatase 76 Total Protein 6.5 Albumin 3.9 Globulin 2.6 Albumin/Globulin Ratio 1.5 ABG Interpretation ABG results: 11/16/25 21:41 VBG pH 7.28 L VBG pCO2 56 VBG pO2 30 VBG Base Excess -1 Quality Measures Quality Measures VTE prophylaxis Advance care planning discussed with:: patient Assessment & Plan Assessment Current Active Medications: Generic Name Dose Route Start Last Admin Trade Name Freq PRN Reason Stop Dose Admin Acetaminophen 650 mg 11/16/25 21:29 Acetaminophen 325 Mg Tablet PO 12/16/25 21:28 Q6H PRN Fever >101.5 or pain 1-3 Albuterol/Ipratropium 3 ml 11/19/25 10:08 Albuterol/Ipratropium (Duoneb) Rt Lucia 3 Ml Nebu INH 12/17/25 00:59 Q6HRRT PRN wheezing Aspirin 81 mg 11/17/25 09:00 11/24/25 08:30 Aspirin Ec 81 Mg Tabec PO 12/17/25 08:59 81 mg QDAY NANCY Administration Atorvastatin Calcium 40 mg 12/21/25 21:00 11/23/25 20:38 Atorvastatin Calcium 20 Mg Tablet PO 12/17/25 20:59 40 mg HS NANCY Administration Bumetanide 1 mg 11/22/25 21:00 11/24/25 08:31 Bumetanide Inj 0.25 Mg/Ml Vial 4 Ml IVP 12/22/25 20:59 1 mg BID NANCY Administration Dextrose 25 ml 11/16/25 22:23 Dextrose 50%-Water Inj 50 Ml Syringe IV 12/16/25 22:22 Q15MIN PRN BG 50-70 responsive npo pt Dextrose 50 ml 11/16/25 22:23 Dextrose 50%-Water Inj 50 Ml Syringe IV 12/16/25 22:22 Q15MIN PRN BG <50 OR BG <70 & pt unresponsive Folic Acid 1 mg 11/17/25 09:00 11/24/25 08:30 Folic Acid 1 Mg Tablet PO 12/17/25 08:59 1 mg QDAY NANCY Administration Glucagon 1 mg 11/16/25 22:23 Glucagon Inj 1 Mg Vial IM Q15MIN PRN BG <70, and no IV access Heparin Sodium (Porcine) 5,000 unit 11/16/25 21:45 11/24/25 13:42 Heparin Sod Inj 5000 Unit/Ml Vial SC 11/30/25 21:44 Not Given Q12H NANCY Ceftriaxone Sodium/Dextrose 1 gm in 50 mls @ 100 mls/hr 11/19/25 10:39 11/24/25 08:30 Rocephin/D5w 1gm Iv Premix IV 11/26/25 10:38 100 mls/hr QDAY NANCY Administration Insulin Human Lispro 0 unit 11/17/25 07:30 11/24/25 11:45 Insulin Lispro (Admelog) 1 Unit/0.01 Ml Unit SC 12/17/25 07:29 Not Given AC [facility] Protocol Metoprolol Succinate 25 mg 11/17/25 09:00 11/24/25 08:30 Metoprolol Succinate Xl 25 Mg Tabcr PO 12/17/25 08:59 25 mg QDAY NANCY Administration Ondansetron HCl 4 mg 11/16/25 21:29 11/24/25 08:41 Ondansetron Inj 2 Mg/Ml Inj 2 Ml IVP 01/19/26 21:28 4 mg Q6H PRN Administration NAUSEA OR VOMITING Protocol Fluticasone/Salmeterol 1 puff 11/19/25 10:15 11/24/25 13:42 Fluticasone/Salmeterol 250/50 14 Dose Inh INH 12/19/25 10:14 Not Given BIDRT NANCY Sennosides 1 tab 11/16/25 22:13 Senna/Docusate Sod 1 Tab Tablet PO 12/16/25 22:12 QDAY PRN CONSTIPATION Protocol Sodium Chloride 3 ml 11/16/25 20:39 11/16/25 21:32 Sodium Chloride Rt Lucia 0.9% 3 Ml Nebu INH 12/16/25 20:38 3 ml PRN PRN Administration SOLN Tamsulosin HCl 0.4 mg 11/17/25 09:00 11/24/25 08:31 Tamsulosin Hcl 0.4 Mg Capsule PO 12/17/25 08:59 0.4 mg QDAY NANCY Administration Vitamin B Complex/Vit C/Folic Acid 1 tab 11/17/25 09:00 11/24/25 08:32 Vitamin B Complex Tablet PO 12/17/25 08:59 1 tab QDAY NANCY Administration Plan 80-year-old male with a history of type 2 diabetes mellitus, hypertension, hyperlipidemia, BPH, HFpEF (EF 50 to 55%, 2022), CKD, lung cancer status post bilateral lobectomies at [facility] who is admitted for further workup of GI bleed. Currently stable, pending SNF outpatient (patient requested private room - S.W. continuing to search). #Lower GI bleed, 2/2 external and internal hemorrhoids, s/p banding on 11/19 #Bright red blood per rectum #Symptomatic, blood loss anemia #Microcytic anemia Endorses having had 3-4 bright red blood bloody bowel movements last month with a corresponding drop in hemoglobin from 14 to 10. Experiencing associated dyspnea upon exertion and shortness of breath and denies any cough, sore throat, sick contacts. Favor GI bleed versus pneumonia versus COPD exacerbation. Dx: -11/18 EGD and colonoscopy scheduled, showed normal esophagus with some erythema of antrum mucosa and duodenum top-coto and showed external and internal hemorrhoids which were banded bottom-coto Rx: -GI consulted, appreciate recommendations -GI recommends outpatient air-contrast barium enema, which will be mentioned in the discharge instructions -Trend hemoglobin and transfuse if hemoglobin <7 -B12 and folate supplementation -Follow-up homocystine and methylmalonic acid levels, pending #Acute hypoxic respiratory failure 2/2, improving #CHF exacerbation vs. community acquired pneumonia versus COPD exacerbation 11/16 CXR showed extensive pleural parenchymal scarring throughout the lungs as well as pulmonary hypertension Will continue to monitor oxygen levels but favor CHF exacerbation and volume overloaded status as primary contributor of ongoing increased oxygen demand Dx: -Repeat CXR ordered, showed increasing interstitial infiltrate in the right lower lobe Rx: ? DuoNebs every 6 hours scheduled ? Azithromycin 500 mg IV daily [11/16--] ? Rocephin 1 g IV daily [11/19--] ? Fluticasone/salmeterol 1 puff twice daily ? Home oxygen tank already obtained #BPH #Urinary retention CT A/P on 11/16 shows transverse prostate of 4.5 cm. ? Tamsulosin 0.4 mg daily ? Bladder scans PRN ? Follow-up outpatient #HFpEF (EF 60-65%) #Pulmonary hypertension with right ventricular dilation Not in acute exacerbation. Follows Dr. Robbins outpatient. Recent echo this visit showed marked right ventricular hypertrophy, likely 2/2 significant scarring of the lungs i/s/o lung cancer s/p bilateral lobectomies Dx: -11/16/25 echo ordered, showed EF 60-65%, enlarged RV w/ RVSP 70-75 mmHg, RAP 8, possible severe PHTN, and dilated IVC Rx: ? Cardiology consulted (Dr. Robbins), appreciate recommendations ? Metoprolol 25 mg daily ? IV Bumex 1 mg twice daily (due to pulmonary artery hypertension) - diamox 500 mg x1 IV today for further diuresis with elevated bicarb ? Aspirin 81 mg daily ? Keep K >4, magnesium >2 ? Cardiology recommends outpatient follow-up for possible left and right heart catheterization to check pulmonary artery pressure #Type 2 diabetes mellitus A1c 6.7% ? SSI ? Hypoglycemia protocol in place ? Consistent carb diet #CKD stage IV CT A/P showing renal scarring. Follows Dr. Ruvalcaba outpatient. ? Avoid nephrotoxic drugs when possible, renally dose medication ? Continue outpatient follow-up #Hyperlipidemia ? Atorvastatin 40 mg at bedtime #Hypertension ? Metoprolol 25 mg daily Hospital management: Disposition: Med Surg Diet: Carb consistent low Lines: PIV DVT prophylaxis: heparin SC Garcia: N/A, in and out caths PRN CODE STATUS: Full Code Patient plan of care was discussed with the attending physician, Dr. Trent & senior resident Dr. Keesha Scanlon MD PGY-1 Attending Provider Attestation/Addendum I have discussed and was present for the essential components of the history, physical examination, diagnosis, and treatment plan with the resident. I agree with the patient's care as documented by the resident and amended herein by me. Bud Trent, DO. Although this document has been carefully reviewed, there may still be some phonetic and other typographical errors. These errors are purely grammatical due to imperfections in the software program and should not be construed in any way to compromise the substance of the patient's medical care during this visit. Patient seen and evaluated this AM. No acute events overnight, vital signs stable, patient afebrile, on nasal cannula, 3 L SpO2 95%, I/os 1610/3275 mL overnight. Labs largely unremarkable with exception of creatinine of 2.1 which is most likely the patient's baseline. Patient does want a go to SNF however he is very particular and only wants a private room hence the search continues, no options available in [place] hence looking in [place]. Patient does not want to go home at this time [place] lives [place], does not feel safe. For now we will continue aspirin, statin, Bumex and metoprolol succinate, cardiology consulted, appreciate recommendations. Patient will likely need outpatient cardiac ischemic workup. Will continue monitor closely was here.
--- NOTE | 2025-11-24 18:52 | ESPR_ITS ---
Documentation for date of: 11/24/25 Subjective Subjective Interval history: Hemoglobin hematocrit 9.7 and 31.1 Exam Vital Signs Temp Pulse Resp BP Pulse Ox O2 Del Method O2 Flow Rate 97.3 F 91 19 130/75 94 L Nasal Cannula 4 11/24/25 16:00 11/24/25 16:00 11/24/25 16:00 11/24/25 16:00 11/24/25 16:00 11/24/25 16:00 11/24/25 16:00 Objective Labs 11/24/25 04:25 11/24/25 04:25 Labs: Laboratory Results - last 24 hr 11/24/25 04:25 WBC 4.7 RBC 3.00 L Hgb 9.7 L Hct 31.1 L MCV 104 H MCH 32.3 MCHC 31.2 RDW Std Deviation 48.8 H Plt Count 154 Neut % (Auto) 74 Lymph % (Auto) 14 [place] % (Auto) 9 Eos % (Auto) 3 Baso % (Auto) 0 Neut # (Auto) 3.5 Lymph # (Auto) 0.7 L [place] # (Auto) 0.4 Eos # (Auto) 0.1 Baso # (Auto) 0.0 Immature Gran # (Auto) 0.01 H Absolute Nucleated RBC 0.00 Immature Gran % 0 Nucleated RBC % 0 Sodium 145 Potassium 3.5 Chloride 104 Carbon Dioxide 30.8 Anion Gap 10 BUN 30 H Creatinine 2.1 H Estim Creat Clear Calc 35.2 L eGFR 31 L BUN/Creatinine Ratio 14 Glucose 129 H Calculated Osmolality 296 H Calcium 8.6 Corrected Calcium 8.7 Phosphorus 3.9 Magnesium 1.7 Total Bilirubin 0.4 AST 18 ALT 14 Alkaline Phosphatase 76 Total Protein 6.5 Albumin 3.9 Globulin 2.6 Albumin/Globulin Ratio 1.5 Impressions Impression: GI bleed requiring band ligation of the large 4+ inflamed internal hemorrhoids No bleeding since then Continue to monitor CBC Shortness of breath due to underlying congestive heart failure ABG Interpretation ABG results: 11/16/25 21:41 VBG pH 7.28 L VBG pCO2 56 VBG pO2 30 VBG Base Excess -1 Assessment & Plan A&P Narrative # Anemia blood loss # Hematochezia Plan Clear liquid diet GoLytely prep If 1 gallon is not enough start the second gallon Consent obtained for fiberoptic colonoscopy as well as fiberoptic upper endoscopy with biopsy and therapeutic intervention if needed under intravenous moderate sedation Once patient is clear n.p.o. Both upper endoscopy and colonoscopy tentatively scheduled for tomorrow Other medical problems include Diabetes mellitus type 2 Hyperlipidemia Polycythemia Lung carcinoma status post bilateral lobectomy 20 years ago at [facility] CKD stage III being followed by plastic tubing insulation supervisor Dr. Aleman Thank you very much for the opportunity to participate in the care of this patient Time Spent With Patient Time: Total time spent is greater than 50% in coordination of care (as documented) at patient's floor/unit and/or counseling patient:
[2025-11-24] MEDS: ATORVASTATIN CALCIUM 20 MG TABLET 40 MG PO (20:15)
[2025-11-24] MEDS: HEPARIN SOD INJ 5000 UNIT/ML VIAL SC (20:54)
[2025-11-24] MEDS: SENNA/DOCUSATE SOD 1 TAB TABLET PO (21:18)
[2025-11-25] VITALS (8 sets, daily range): BP systolic 115–130; BP diastolic 65–79; PULSE 89–102; RESP 16–23; TEMP 36.2–36.6; O2SAT 91–96; BMI 13.0
[2025-11-25 06:03] LABS: Basophils # (Auto) 0.0 Thou/mm3 (0.0-0.2); Basophils % (Auto) 1 % (0-2.5); Eosinophils # (Auto) 0.1 Thou/mm3 (0.0-0.5); Eosinophils % (Auto) 2 % (0-10); Hematocrit 33.0 % (41.0-53.0); Hemoglobin 10.1 g/dL (13.5-16.0); Immature Granulocytes Auto 0.01 Thou/mm3 (0.00-0.00); Lymphocytes # (Auto) 0.6 Thou/mm3 (1.0-4.8); Lymphocytes % (Auto) 13 % (10-50); Mean Corpuscular HGB Conc 30.6 g/dl (31.0-37.0); Mean Corpuscular Hemoglobin 31.8 pg (25.0-35.0); Mean Corpuscular Volume 104 fL (80-100); Monocytes # (Auto) 0.4 Thou/mm3 (0.0-0.8); Monocytes % (Auto) 8 % (0-12); Neutrophils # (Auto) 3.9 Thou/mm3 (1.8-7.7); Neutrophils % (Auto) 76 % (37-80); Nucleated Red Blood Cell # 0.00 Thou/mm3 (0.00-0.00); Nucleated Red Blood Cell % 0 /100 WBC (0); Platelet Count 166 Thou/mm3 (140-440); RDW Standard Deviation 49.1 fL (35.1-43.9); Red Blood Count 3.18 Miln/mm3 (4.50-5.90); White Blood Count 5.1 Thou/mm3 (3.8-10.6)
[2025-11-25 06:36] LABS: Alanine Aminotransferase 22 U/L (10-49); Albumin, Serum 3.9 gm/dL (3.4-4.8); Albumin/Globulin Ratio 1.4 (1.2-2.2); Alkaline Phosphatase 80 U/L (46-116); Anion Gap 9 (7-16); Aspartate Amino Transferase 25 U/L (0-34); BUN/Creatinine Ratio 13 Ratio (12-20); Bilirubin,Total 0.4 mg/dL (0.3-1.2); Blood Urea Nitrogen 29 mg/dL (9-23); Calcium 8.8 mg/dL (8.3-10.6); Calcium (Corrected) 8.9 mg/dL (8.5-10.1); Carbon Dioxide 31.0 mMol/L (20.0-31.0); Chloride 105 mMol/L (98-107); Creatinine (Component) 2.2 mg/dL (0.6-1.3); Estimated Creatinine Clearance 33.6 mL/min (>60); Globulin 2.8 gm/dL (2.3-3.5); Glucose 138 mg/dL (74-106); Magnesium 2.1 mg/dL (1.6-2.6); Osmolality,Calculated 296 (275-295); Phosphorous 4.6 mg/dL (2.4-5.1); Potassium 4.0 mMol/L (3.4-5.1); Sodium 145 mMol/L (136-145); Total Protein 6.7 gm/dL (5.7-8.2); eGFR 29 See Note
[2025-11-25 07:08] LABS: Homocysteine* 18.1 umol/L (< OR = 15.2)
[2025-11-25] MEDS: METOPROLOL SUCCINATE XL 25 MG TABCR PO (08:21)
[2025-11-25] MEDS: VITAMIN B COMPLEX TABLET 1 TAB PO (08:22)
[2025-11-25] MEDS: BUMETANIDE INJ 0.25 MG/ML VIAL 4 ML 1 MG IVP (08:22)
[2025-11-25] MEDS: TAMSULOSIN HCL 0.4 MG CAPSULE PO (08:22)
[2025-11-25] MEDS: cefTRIAXone/D5w 1gm IV premix 1 GM/50 ML BAG IV (08:22)
[2025-11-25] MEDS: ASPIRIN EC 81 MG TABEC PO (08:22)
[2025-11-25] MEDS: FOLIC ACID 1 MG TABLET PO (08:22)
[2025-11-25] MEDS: HEPARIN SOD INJ 5000 UNIT/ML VIAL SC (08:50)
--- NOTE | 2025-11-25 09:29 | PC.SS ---
PAS LVL1 completed and downloaded. No follow up needed.
--- NOTE | 2025-11-25 09:30 | ESDS_ITS ---
Planned Discharge Date 11/25/25 DS: Providers Provider Date of admission: 11/17/25 14:24 Primary care physician: Jennifer Silverio MD Admitting Provider: Uli Ennis DO Attending Provider on Admission: Thais Perez DO Consults: 11/16/25 21:58 PT [Referral Physical Therapy] Routine Comment: Physician Instructions: 11/17/25 04:46 Consult to Gastroenterology Routine Comment: Hematochezia and acute blood loss anemia Consulting Provider: Rito Hooper 11/20/25 08:00 Consult to Cardiology Routine Comment: heart failure w/ right ventricular hypertrophy Consulting Provider: Sallie Robbins Attending Provider on DC: Satnam Trent DO Discharging Provider: Satnam Trent DO DS: Diagnosis Problem List Completed Was Problem List Reviewed/Reconciled?: Yes Hospital Course Hospital Course Hospital course: This patient is an 80-year-old male with a history of type 2 diabetes mellitus, hypertension, hyperlipidemia, BPH, HFpEF 50 to 55% (2022), CKD, and lung cancer status post bilateral lobectomy (done at [facility]) who presented to [facility] ED on 11/16 generalized weakness and shortness of breath. Patient was admitted for further workup of GI bleed. Patient's hemoglobin had a drop to ten from fourteen and had an EGD and colonoscopy done which was remarkable for internal and external hemorrhoids that were both banded. Patient's hemoglobin stabilized after that. Patient's hypoxia improved but still plateaued to the point of needing minimal supplemental oxygen with nasal cannula. [place] and is being sent home with home oxygen. Patient's chest x-ray showed extensive pleural parenchymal scarring throughout the lungs as well as pulmonary hypertension. Patient was started on Azithromycin and Rocephin and completed treatment while in the hospital. Patient was started on bumex inpatient and prescribed outpatient for heart failure with net output fluid balance positive 1.2 liters. Patient will need close follow up outpatient and will need to meet with GI for recommended air-contrast barium enema. Discharge Instructions ? Follow up GI outpatient within 1-2 weeks for recommended air-contrast barium e nema ? Take your vitamin supplements as prescribed - Prescribing you Bumex water pill, take as prescribed - Prescribing Metoprolol succinate, take as prescribed ? Continue taking all other home medications as prescribed ? Follow-up with PCP and litigation services manager within 1-2 weeks of discharge ? If you do not have a PCP, you can follow-up at the [facility] (you can call [phone] to make an appointment) ? Return to ED if symptoms worsen or recur #Lower GI bleed #external and internal hemorrhoids, s/p banding on 11/19 #Bright red blood per rectum #Symptomatic, blood loss anemia #Microcytic anemia #Acute hypoxic respiratory failure #CHF exacerbation #community acquired pneumonia #BPH #Urinary retention #HFpEF (EF 60-65%) #Pulmonary hypertension with right ventricular dilation #Type 2 diabetes mellitus #CKD stage IV #Hyperlipidemia #Hypertension Patient plan of care was discussed with the attending physician, Dr. Trent & senior resident Dr. Jone Scanlon MD PGY-1 Time Spent with Patient Time attestation: Total time spent providing and/or coordinating discharge services: Time spent: Greater than 30 minutes Exam Vital Signs Temp Pulse Resp BP Pulse Ox O2 Del Method O2 Flow Rate 97.2 F 92 20 127/75 93 L Nasal Cannula 3 11/25/25 08:00 11/25/25 08:22 11/25/25 08:00 11/25/25 08:22 11/25/25 08:00 11/25/25 08:00 11/24/25 19:15 Narrative Exam General: No acute distress; A&Ox3 Skin: Warm, dry, intact, no obvious rash. HENT: NCAT, EOMI/PERRL, not icteric. External ears normal. No rhinorrhea. Moist mucous membranes Cardiovascular: Regular rate and rhythm, no murmur, +S1/S2. Respiratory: Lungs CTAB, nasal cannula, tachypneic GI: Soft, nontender, non-distended. No guarding or rebound tenderness. : No suprapubic tenderness. No flank tenderness bilaterally. Extremities: no edema, no cyanosis, no clubbing. Extremity pulses present Neuro: Grossly nonfocal. Moving all 4 extremities. CN not formally tested but appear grossly intact. Psychiatric: Cooperative, appropriate affect. Discharge Plan Plan Patient Disposition: Xfer Skilled Nsg Fac (SNF) Patient condition on transfer: Stable Care Plan Goals: ? Follow up GI outpatient within 1-2 weeks for recommended air-contrast barium enema ? Take your vitamin supplements as prescribed - Prescribing you Bumex water pill, take as prescribed - Prescribing Metoprolol succinate, take as prescribed ? Continue taking all other home medications as prescribed ? Follow-up with PCP and litigation services manager within 1-2 weeks of discharge ? If you do not have a PCP, you can follow-up at the [facility] (you can call [phone] to make an appointment) ? Return to ED if symptoms worsen or recur Prescriptions/Referrals Prescriptions/Med Rec: New vitamin B complex Tablet 1 tab PO QDAY 60 Days Qty: 60 0RF folic acid 1 mg Tablet 1 mg PO QDAY Qty: 90 0RF bumetanide 1 mg tablet 1 mg PO BID Qty: 60 0RF budesonide-formoterol [Breyna] 80-4.5 mcg/actuation HFA aerosol inhaler 2 puff inhalation BID Qty: 10.2 0RF Continued atorvastatin [Lipitor] 40 MG tablet 40 mg PO HS Qty: 0 aspirin 81 mg tablet,chewable 1 tab PO DAILY Patient Comments: CHEW 1 TABLET BY MOUTH EVERY DAY Januvia 50 mg tablet 50 mg PO DAILY Patient Comments: TAKE 1 TABLET BY MOUTH EVERY DAY tamsulosin 0.4 mg capsule 0.4 mg PO HS irbesartan 150 mg tablet 150 mg PO DAILY Patient Comments: TAKE 1 TABLET BY MOUTH EVERY DAY glipizide 2.5 mg Tablet Extended Release 24hr 2.5 mg PO QDAY PRN (Reason: hyperglycemia) Rx Instructions: 2.5mg to 5mg depending on how high blood sugar. metoprolol succinate 25 mg Tablet Extended Release 24 Hr 25 mg PO QDAY Qty: 30 0RF polyethylene glycol 3350 [HealthyLax] 17 gram Powder In Packet 17 g PO QDAY Qty: 1 0RF Discontinued metformin 500 mg Tablet 1,000 mg PO BID Qty: 360 furosemide 40 mg tablet 40 mg PO DAILY Patient Comments: TAKE 1 TABLET BY MOUTH EVERY DAY triamterene-hydrochlorothiazid 37.5-25 mg Tablet 1 tab PO QDAY spironolactone 25 mg Tablet 25 mg PO DAILY 30 Days Qty: 30 1RF irbesartan 300 mg Tablet 300 mg PO QDAY Qty: 30 0RF acetaminophen 325 mg Tablet 650 mg PO Q6H PRN (Reason: Fever >101.5) Qty: 1 0RF ipratropium-albuterol 0.5 mg-3 mg(2.5 mg base)/3 mL Solution For Nebulization 3 ml INH Q6HRRT Qty: 1 0RF budesonide-formoterol [Symbicort] 80-4.5 mcg/actuation HFA aerosol inhaler 2 inh inhalation BID Qty: 10.2 0RF Lokelma 10 gram powder in packet 10 g PO QDAY Qty: 5 0RF Referrals: Jennifer Silverio MD [Primary Care Provider] Patient/Caregiver Discharge Instructions Print Language: Yemeni Stand Alone Forms: Mimi Award Info., Patient Portal Info Letter Discharge Order Discharge Orders: Discharge (Routine); Ordered 11/25/25 Ordered By: Sunny Scanlon Quality Discharge Quality Measures VTE prophylaxis MD Attestestation MD Attestation I have discussed and was present for the essential components of the discharge history, physical examination, diagnosis, and discharge treatment plan with the resident. I agree with the patient's discharge care as documented by the resident and amended herein by me. Bud Trent DO. The patient understood all discharge instructions, all questions were answered satisfactorily. The patient was instructed to return to the Emergency Department is symptoms worsened or persisted. Patient was stable, afebrile and tolerating p.o. intake at time of discharge to [facility] Although this document has been carefully reviewed, there may still be some phonetic and other typographical errors. These errors are purely grammatical due to imperfections in the software program and should not be construed in any way to compromise the substance of the patient's medical care during this visit.
--- NOTE | 2025-11-25 09:50 | PC.SS ---
FUR IRONER confirmed that [facility] has a private room available and will accept the patient for placement.
--- NOTE | 2025-11-25 09:51 | PC.SS ---
Updated clinicals submitted on [facility] to [facility].
--- NOTE | 2025-11-25 09:53 | PC.SS ---
QUILLER RUNNER notified resident of need to place discharge orders. Patient is medically cleared for discharge. SNF placement has been secured. QUILLER RUNNER updated bedside nurse. Transport to be scheduled.
[2025-11-25] MEDS: FLUTICASONE/SALMETEROL 250/50 14 DOSE INH 1 PUFF INH (10:16)
[2025-11-25] MEDS: LACTULOSE SYRUP 20 GM/30 ML UDC PO (10:50)
--- NOTE | 2025-11-25 10:58 | ESPR_ITS ---
Documentation for date of: 11/25/25 Subjective Subjective Interval history: No Overnight events. Labs reviewed and patient examined at the bedside. BP currently at 130/79 with pulse rate of 94. Creatinine stable at 2.2. Patient denies any symptoms of chest pain, palpitations, shortness of breath. Will continue IV Bumex 1 mg twice daily, metoprolol 25 mg daily and aspirin 81 mg p.o. daily. Patient is stable from cardiology standpoint. Recommend discharging patient on Bumex 1 mg p.o. twice daily. Exam Vital Signs Temp Pulse Resp BP Pulse Ox O2 Del Method O2 Flow Rate 97.2 F 93 16 127/75 92 L Nasal Cannula 3 11/25/25 08:00 11/25/25 10:16 11/25/25 10:16 11/25/25 08:22 11/25/25 10:16 11/25/25 08:00 11/25/25 10:16 Narrative Exam General: No acute distress, well nourished, AAO x3 Eye: Normal conjunctiva, no scleral icterus HENT: Normocephalic, atraumatic, hearing intact to conversation at normal volume, moist oral mucosa. On 3 L nasal cannula. Neck: Supple, non-tender, no JVD, no lymphadenopathy Lungs: Non-labored respirations, symmetric chest rise, Clear to auscultate bilaterally, No wheezing, rhonchi, crackles Heart: Peripheral pulses intact bilaterally, Regular Rate and Rhythm. Abdomen: Soft, non-tender, non-distended, no palpable masses Musculoskeletal: Normal range of motion and strength, No cyanosis or edema, No visible joint swelling Skin: Skin is warm, dry, no rashes or lesions. Psychiatric: Cooperative, appropriate mood and affect, Awake and alert, not agitated Neuro: Cranial nerves II-XII grossly intact. Strength 5/5 throughout. Sensations intact to light touch. Objective Labs 11/25/25 05:11 11/25/25 05:11 Labs: Laboratory Results - last 24 hr 11/16/25 11/25/25 21:41 05:11 WBC 5.1 RBC 3.18 L Hgb 10.1 L Hct 33.0 L MCV 104 H MCH 31.8 MCHC 30.6 L RDW Std Deviation 49.1 H Plt Count 166 Neut % (Auto) 76 Lymph % (Auto) 13 [place] % (Auto) 8 Eos % (Auto) 2 Baso % (Auto) 1 Neut # (Auto) 3.9 Lymph # (Auto) 0.6 L [place] # (Auto) 0.4 Eos # (Auto) 0.1 Baso # (Auto) 0.0 Immature Gran # (Auto) 0.01 H Absolute Nucleated RBC 0.00 Immature Gran % 0 Nucleated RBC % 0 Sodium 145 Potassium 4.0 D Chloride 105 Carbon Dioxide 31.0 Anion Gap 9 BUN 29 H Creatinine 2.2 H Estim Creat Clear Calc 33.6 L eGFR 29 L BUN/Creatinine Ratio 13 Glucose 138 H Calculated Osmolality 296 H Calcium 8.8 Corrected Calcium 8.9 Phosphorus 4.6 Magnesium 2.1 Total Bilirubin 0.4 AST 25 ALT 22 Alkaline Phosphatase 80 Total Protein 6.7 Albumin 3.9 Globulin 2.8 Albumin/Globulin Ratio 1.4 Homocysteine 18.1 H ABG Interpretation ABG results: 11/16/25 21:41 VBG pH 7.28 L VBG pCO2 56 VBG pO2 30 VBG Base Excess -1 Quality Measures Quality Measures VTE prophylaxis Advance care planning discussed with:: patient and other Assessment & Plan Assessment Current Active Medications: Generic Name Dose Route Start Last Admin Trade Name Freq PRN Reason Stop Dose Admin Acetaminophen 650 mg 11/16/25 21:29 Acetaminophen 325 Mg Tablet PO 12/16/25 21:28 Q6H PRN Fever >101.5 or pain 1-3 Albuterol/Ipratropium 3 ml 11/19/25 10:08 Albuterol/Ipratropium (Duoneb) Rt Lucia 3 Ml Nebu INH 12/17/25 00:59 Q6HRRT PRN wheezing Aspirin 81 mg 11/17/25 09:00 11/25/25 08:22 Aspirin Ec 81 Mg Tabec PO 12/17/25 08:59 81 mg QDAY NANCY Administration Atorvastatin Calcium 40 mg 11/17/25 21:00 11/24/25 20:15 Atorvastatin Calcium 20 Mg Tablet PO 12/17/25 20:59 40 mg HS NANCY Administration Bumetanide 1 mg 11/26/25 09:00 Bumetanide 0.5 Mg Tablet PO 12/26/25 08:59 QDAY NANCY Dextrose 25 ml 11/16/25 22:23 Dextrose 50%-Water Inj 50 Ml Syringe IV 12/16/25 22:22 Q15MIN PRN BG 50-70 responsive npo pt Dextrose 50 ml 11/16/25 22:23 Dextrose 50%-Water Inj 50 Ml Syringe IV 12/16/25 22:22 Q15MIN PRN BG <50 OR BG <70 & pt unresponsive Folic Acid 1 mg 11/17/25 09:00 11/25/25 08:22 Folic Acid 1 Mg Tablet PO 12/17/25 08:59 1 mg QDAY NANCY Administration Glucagon 1 mg 11/16/25 22:23 Glucagon Inj 1 Mg Vial IM Q15MIN PRN BG <70, and no IV access Heparin Sodium (Porcine) 5,000 unit 11/16/25 21:45 11/25/25 08:50 Heparin Sod Inj 5000 Unit/Ml Vial SC 11/30/25 21:44 5,000 unit Q12H NANCY Administration Ceftriaxone Sodium/Dextrose 1 gm in 50 mls @ 100 mls/hr 11/19/25 10:39 11/25/25 08:22 Rocephin/D5w 1gm Iv Premix IV 11/26/25 10:38 100 mls/hr QDAY NANCY Administration Insulin Human Lispro 0 unit 11/17/25 07:30 11/25/25 08:23 Insulin Lispro (Admelog) 1 Unit/0.01 Ml Unit SC 12/17/25 07:29 Not Given AC [facility] Protocol Metoprolol Succinate 25 mg 11/17/25 09:00 11/25/25 08:21 Metoprolol Succinate Xl 25 Mg Tabcr PO 12/17/25 08:59 25 mg QDAY NANCY Administration Ondansetron HCl 4 mg 11/16/25 21:29 11/24/25 08:41 Ondansetron Inj 2 Mg/Ml Inj 2 Ml IVP 12/16/25 21:28 4 mg Q6H PRN Administration NAUSEA OR VOMITING Protocol Fluticasone/Salmeterol 1 puff 11/19/25 10:15 11/25/25 10:16 Fluticasone/Salmeterol 250/50 14 Dose Inh INH 12/19/25 10:14 1 puff BIDRT NANCY Administration Sennosides 1 tab 11/16/25 22:13 11/24/25 21:18 Senna/Docusate Sod 1 Tab Tablet PO 12/16/25 22:12 1 tab QDAY PRN Administration CONSTIPATION Protocol Sodium Chloride 3 ml 11/16/25 20:39 11/16/25 21:32 Sodium Chloride Rt Lucia 0.9% 3 Ml Nebu INH 12/16/25 20:38 3 ml PRN PRN Administration SOLN Tamsulosin HCl 0.4 mg 11/17/25 09:00 11/25/25 08:22 Tamsulosin Hcl 0.4 Mg Capsule PO 12/17/25 08:59 0.4 mg QDAY NANCY Administration Vitamin B Complex/Vit C/Folic Acid 1 tab 11/17/25 09:00 11/25/25 08:22 Vitamin B Complex Tablet PO 12/17/25 08:59 1 tab QDAY NANCY Administration Plan Summary: 80-year-old male with a history of type 2 diabetes mellitus, hypertension, hyperlipidemia, BPH, HFpEF (EF 50 to 55%, 2022), CKD, lung cancer status post bilateral lobectomies at [facility] who is admitted for further workup of GI bleed. Cardiology consulted for severe shortness of breath. #Acute Decompensated Heart Failure-improving #Congestive diastolic HFpEF, EF 60-65% #Severe Pulmonary Hypertension (Type II vs Type III) -Patient initially had severe shortness of breathe on admission. -On admission, Troponin: 0.027, BNP: 257 -CXR: COPD with extensive pleural parenchymal scarring throughout the lungs, Pulmonary artery hypertension, No interval pneumonia or pulmonary edema -ECHO (11/16/2025) showed: 1. Left ventricle size is normal and systolic function is normal. Estimatedejection fraction is6 0-65%. There is grade I diastolic dysfunction. 2. Right ventricle chamber size is severely enlarged and systolic function is normal. Estimated RVSP is 70-75mmHg with RAP 8. Possible severe PHTN. 3. Flattening of the ventricular septum in mid to late systole consistent with right ventricular volume overload. 4. There is moderate aortic valve sclerosis with mild stenosis and trace regurgitation. 5. There is mild mitral and pulmonic valve regurgitation. Moderate eccentric tricuspid regurgitation with mild MAC. 6. The left atrium is moderately enlarged. The right atrium is severely enlarged. 7. Dilated IVC with estimated RA pressure 8 mmHg. Plan: -Continue IV bumex 1mg bid, patient stable to be discharged on Bumex 1 mg p.o. twice daily from cardiology standpoint. -Continue metoprolol 25 mg daily and aspirin 81 mg daily -After discharge, possible right and left heart cardiac catheterization for assessment of possible primary pulmonary hypertension with primary risk compliance analyst Dr. Robbins -Strict I&O -Daily weight -Fluid restriction 1500cc -Low sodium diet #Hyperlipidemia Lipid panel 09/02/2025: Triglyceride 146, cholesterol 112, LDL 34, HDL 49 -Continue Atorvastatin 40mg po HS #Hypertension -Continue Metoprolol 25mg po qd - Hold irbesartan on discharge #Community-acquired pneumonia #COPD exacerbation #Lower GI bleed, 2/2 external and internal hemorrhoids, s/p banding on 11/19 #Bright red blood per rectum #Symptomatic, blood loss anemia #Microcytic anemia #BPH #Urinary retention #Type 2 diabetes mellitus #CKD stage IV -Management per Primary Hospitalist team Thank you for the consult and allowing to participate in the care of the patient. Cardiology will continue to follow. Assessment and plan discussed with my attending physician Dr. Anahi Patel (PGY-1) - Internal medicine resident Attending Provider Attestation/Addendum I have personally seen and examined the patient separately on the above date of service and discussed the plan of care with the resident. I reviewed the resident Dr. Violette Patel consultation progress note and agree with the resident findings and plan in the note above and have also edited the documentation to reflect my findings and plan. Bhanu Christian M.D. Interventional Cardiology
[2025-11-25] MEDS: INSULIN LISPRO (AdmeLOG) 1 UNIT/0.01 ML UNIT SC (11:51)
--- NOTE | 2025-11-25 12:07 | PC.NURSE ---
Patient reports last bowel movement approximately 2.5 days ago. Patient took lactulose. Patient refusing additional bowel movement medications. Bowel sounds are active in all four quadrants; abdomen soft, non-tender, and non-distended.
--- NOTE | 2025-11-25 12:11 | ESPR_ITS ---
Documentation for date of: 11/25/25 Subjective Subjective Interval history: Patient evaluated hemoglobin hematocrit 10.1 and 33.0 most of the issues are cardiac And pulmonary Exam Vital Signs Temp Pulse Resp BP Pulse Ox O2 Del Method O2 Flow Rate 97.2 F 93 16 127/75 92 L Nasal Cannula 3 11/25/25 08:00 11/25/25 10:16 11/25/25 10:16 11/25/25 08:22 11/25/25 10:16 11/25/25 08:00 11/25/25 10:16 Objective Labs 11/25/25 05:11 11/25/25 05:11 Labs: Laboratory Results - last 24 hr 11/16/25 11/25/25 21:41 05:11 WBC 5.1 RBC 3.18 L Hgb 10.1 L Hct 33.0 L MCV 104 H MCH 31.8 MCHC 30.6 L RDW Std Deviation 49.1 H Plt Count 166 Neut % (Auto) 76 Lymph % (Auto) 13 [place] % (Auto) 8 Eos % (Auto) 2 Baso % (Auto) 1 Neut # (Auto) 3.9 Lymph # (Auto) 0.6 L [place] # (Auto) 0.4 Eos # (Auto) 0.1 Baso # (Auto) 0.0 Immature Gran # (Auto) 0.01 H Absolute Nucleated RBC 0.00 Immature Gran % 0 Nucleated RBC % 0 Sodium 145 Potassium 4.0 D Chloride 105 Carbon Dioxide 31.0 Anion Gap 9 BUN 29 H Creatinine 2.2 H Estim Creat Clear Calc 33.6 L eGFR 29 L BUN/Creatinine Ratio 13 Glucose 138 H Calculated Osmolality 296 H Calcium 8.8 Corrected Calcium 8.9 Phosphorus 4.6 Magnesium 2.1 Total Bilirubin 0.4 AST 25 ALT 22 Alkaline Phosphatase 80 Total Protein 6.7 Albumin 3.9 Globulin 2.8 Albumin/Globulin Ratio 1.4 Homocysteine 18.1 H Impressions Impression: Lower GI bleed secondary to inflamed large internal hemorrhoids status post band ligation doing well posthemorrhagic anemia Continue current management ABG Interpretation ABG results: 11/16/25 21:41 VBG pH 7.28 L VBG pCO2 56 VBG pO2 30 VBG Base Excess -1 Assessment & Plan A&P Narrative # Anemia blood loss # Hematochezia Plan Clear liquid diet GoLytely prep If 1 gallon is not enough start the second gallon Consent obtained for fiberoptic colonoscopy as well as fiberoptic upper endoscopy with biopsy and therapeutic intervention if needed under intravenous moderate sedation Once patient is clear n.p.o. Both upper endoscopy and colonoscopy tentatively scheduled for tomorrow Other medical problems include Diabetes mellitus type 2 Hyperlipidemia Polycythemia Lung carcinoma status post bilateral lobectomy 20 years ago at [facility] CKD stage III being followed by veterinary radiologist Dr. Aleman Thank you very much for the opportunity to participate in the care of this patient Time Spent With Patient Time: Total time spent is greater than 50% in coordination of care (as documented) at patient's floor/unit and/or counseling patient:
[2025-11-25] MEDS: MAGNESIUM CITRATE 300 ML BTL PO (14:44)
[2025-11-25] MEDS: GLYCERIN, ADULT 1 EA SUPP 1 EACH PR (14:45)
--- NOTE | 2025-11-25 16:29 | PC.SS ---
Transport scheduled for 6:30 pm today. Patient to discharge to ST. Bedside nurse and SNF notified.
--- NOTE | 2025-11-25 17:39 | PC.NURSE ---
Called [facility] at [phone] no one answers the phone. Keeps taking me to an answer machine the inbox is full.
[2025-11-26 06:30] LABS: Methylmalonic Acid, GC/MS/MS* 620 nmol/L (85-423)
== END 2025-11-25 18:45 | disposition skilled nursing facility (03) | DRG 347 ==
LOC: SERX 21:44 → S3SX 11-18 05:56 → SERHOLD 11-18 05:57
PROVIDERS: Nurse Practitioner Family; Specialist; Admitting Provider Internal Medicine; Emergency Provider Emergency Medicine; PCP Internal Medicine; Visit Provider Internal Medicine
PROC: 0DJD8ZZ Inspection of Lower Intestinal Tract, Via Natural or Artificial Opening Endoscopic (ICD-10-PCS; CPT 45378; principal; 2025-11-18 15:30)
PROC: (CPT 43239; 2025-11-18 15:30)
DX: K64.3 Fourth degree hemorrhoids (principal); J18.9 Pneumonia, unspecified organism; J96.01 Acute respiratory failure with hypoxia; D62 Acute posthemorrhagic anemia; I13.0 Hypertensive heart and chronic kidney disease with heart failure and stage 1 through stage 4 chronic kidney disease, or unspecified chronic kidney disease; I50.32 Chronic diastolic (congestive) heart failure; N18.4 Chronic kidney disease, stage 4 (severe); J44.1 Chronic obstructive pulmonary disease with (acute) exacerbation; J44.0 Chronic obstructive pulmonary disease with (acute) lower respiratory infection; E11.22 Type 2 diabetes mellitus with diabetic chronic kidney disease; E78.5 Hyperlipidemia, unspecified; N40.1 Benign prostatic hyperplasia with lower urinary tract symptoms; R33.8 Other retention of urine; D75.1 Secondary polycythemia; Z85.118 Personal history of other malignant neoplasm of bronchus and lung; Z79.84 Long term (current) use of oral hypoglycemic drugs; Z87.891 Personal history of nicotine dependence; I27.21 Secondary pulmonary arterial hypertension; D53.9 Nutritional anemia, unspecified; Z79.82 Long term (current) use of aspirin; Z79.899 Other long term (current) drug therapy
CPT/HCPCS: 36415; 51701; 71045; 74176; 80053; 80069; 81001; 82270; 82803; 83036; 83090; 83735; 83880; 83921; 84100; 84145; 84443; 84484; 85025; 85730; 87502; 87635; 93005; 93225; 93306; 93970; 94640; 97162; 99283; A4649; A9270; G0378; J0456; J0696; J1120; J1644; J1815; J1938; J2405; J3475; J3490; J7050; J7999; J7611